=== PATIENT | male | born 1945 | race African-American/Black ===

== ENCOUNTER 2016-08-30 14:02 | Inpatient (IN) | payer MEDICAID, MEDICARE ==
[~2016-08-30] VITALS: Ht 182.9 cm; Wt 90.7 kg
[2016-08-30] MEDS ORDERED: metroNIDAZOLE 500mg 100 ML IV SCH (14:15)
[2016-08-30] MEDS ORDERED: Ampicillin/Sulbactam Sod 3 GM in NS 110 ML IV SCH (14:15)
[2016-08-30 14:18] VITALS: BP 167/89
[2016-08-30] MEDS ORDERED: Lidocaine 1% MPF 10mg/ml 5ml ONE (14:20)
[2016-08-30] MEDS ORDERED: COLACE100 MG GT (14:48)
[2016-08-30] MEDS ORDERED: UTI-STAT L3875 MG/31 GT (14:48)
[2016-08-30] MEDS ORDERED: FERROUS SU220 MG/53 GT (14:48)
[2016-08-30] MEDS ORDERED: MULTI-DELYN237 ML GT (14:48)
[2016-08-30] MEDS ORDERED: ALBUTEROL SULF8.5 GM INH (14:48)
[2016-08-30] MEDS ORDERED: DIOVAN80 MG GT (14:48)
[2016-08-30] MEDS ORDERED: MILK OF MA400 MG/51 GT (14:48)
[2016-08-30] MEDS ORDERED: PROTONIX40 MG GT (14:48)
[2016-08-30] MEDS ORDERED: METOPROLOL TART50 M1 GT (14:48)
[2016-08-30] MEDS ORDERED: ZINC SULFATE220 M1 GT (14:48)
[2016-08-30] MEDS ORDERED: VITAMIN C500 M1 ORAL (14:48)
[2016-08-30] MEDS ORDERED: ALBUTEROL2.5 MG/3 M INH (14:48)
[2016-08-30 14:50] LABS: TROPONIN I < 0.30 ng/mL (<=0.30)
[2016-08-30 14:54] LABS: MEAN CORPUSCULAR HGB CONC 32.5 G/DL (32.0-36.0); MEAN CORPUSCULAR VOLUME 95 FL (80-99); MEAN PLATELET VOLUME 9.6 FL (6.5-10.1); PLATELET COUNT 40 K/UL (150-450); RED BLOOD COUNT 3.56 M/UL (4.70-6.10); RED CELL DISTRIBUTION WIDTH 17.5 % (11.6-14.8); WHITE BLOOD COUNT 10.2 K/UL (4.8-10.8)
--- NOTE | 2016-08-30 14:54 | Emergency Room Report ---
History of Present Illness General Chief Complaint: Altered Level of Consciousness Source: Medical Record, EMS Present Illness HPI Patient is a 71-year-old male brought in by embolus after increased altered level consciousness. The patient had prior history of esophageal carcinoma in situ as well as encephalopathy. Patient was noted to have a recent ammonia level which was markedly elevated. Patient had been noticed to have a wound to right foot which been discolored. The patient noted be having any fever. He had adequate blood sugar by EMS. History is limited by patient's nonverbal status. Allergies: Coded Allergies: No Known Allergies (Unverified , 08/30/16) Patient History Past Medical History: see triage record Reviewed Nursing Documentation: PMH: Agreed, PSxH: Agreed Nursing Documentation-PMH Past Medical History: No History, Except For Hx Cardiac Problems: Yes - mi, anemia Hx Hypertension: Yes Hx COPD: Yes - tracheostomy-nonvent dependant Hx Cancer: Yes - esophageal Review of Systems All Other Systems: limited - by mental status Physical Exam Vital Signs Date Time Temp Pulse Resp B/P Pulse Ox O2 Delivery O2 Flow Rate FiO2 08/30/16 13:59 76 20 165/95 100 Ambu-Bag 100 General Appearance: mild distress Eyes: bilateral eye PERRL ENT: other - tracheostomy noted to not be in stoma, patient breathing spontaneously Neck: limited range of motion Respiratory: lungs clear, normal breath sounds, no rhonchi Cardiovascular #1: normal peripheral pulses, regular rate, rhythm, no edema Gastrointestinal: normal inspection, normal bowel sounds, soft Genitourinary: normal inspection Musculoskeletal: swelling, other - discoloration to right foot Neurologic: responsive, motor weakness - right side, other - poor alertness, pupils reactive. Skin: other - ulcer to right foot, discoloration Procedures Central Line Central Line : Consent: Emergent Central Line Lumen: triple Maximal Sterile Barrier Tech: yes cap, yes mask, yes sterile gown, yes sterile gloves, yes large sterile sheet, yes hand hygiene, yes chlorhexidine prep No Max Barrier Tech Because: emergency insertion Central Line Postion: subclavian (R) Anesthesia: Lidocaine cc's of anesthesia: 5 Complications: none Central Line Post Position: sutured, good blood return, position confirmed w / CXR Attempts: Other - two Patient Tolerated: Well Complications: None Medical Decision Making Diagnostic Impression: Primary Impression: Altered level of consciousness Additional Impressions: Severe sepsis Acute kidney injury Urinary tract infection QT prolongation ER Course Patient presented for altered mental status.Differential diagnosis included but was not limited to ischemic stroke, subarachnoid hemorrhage, hypoglycemia, spinal cord injury, neurodegenerative disorder, urinary tract infection, hypoxemia.Because of complexity of patient's case laboratory testing and imaging studies were ordered.Laboratory testing was notable for elevated of BUN creatinine as well as elevated lactic acid level. A right subclavian central line was placed emergently because of no IV access. The patient started on IV fluids. A Whitten catheter was placed and was noted to have grossly purulent urine. The patient was also noted to have some discoloration to his right foot.Dr. Valerio was contacted for inpatient management due to complexity of medical condition was covering for Hipolito Romero. Patient was noted to have evidence of severe sepsis. He was started on IV antibioticAnd IV fluids.Tracheostomy was replaced and patient started on mechanical ventilation. The CT the head read by radiology showed atrophic changes without evident acute CVA or hydrocephalus or hemorrhage Labs Test 08/30/16 14:11 08/30/16 14:40 Sodium Level 132 mEQ/L (135-145) Potassium Level 5.4 mEQ/L (3.4-4.9) Chloride Level 96 mEQ/L (98-107) Carbon Dioxide Level 17 mEQ/L (20-30) Anion Gap 19 (5-15) Blood Urea Nitrogen 88 mg/dL (7-23) Creatinine 5.6 mg/dL (0.7-1.2) Estimat Glomerular Filtration Rate mL/min (>60) Glucose Level 119 mg/dL (74-106) Lactic Acid Level 3.20 mmol/L (0.66-2.22) Calcium Level 7.6 mg/dL (8.6-10.2) Total Bilirubin 1.1 mg/dL (0.0-1.2) Direct Bilirubin 0.5 mg/dL (0.1-0.3) Aspartate Amino Transf (AST/SGOT) 103 U/L (5-40) Alanine Aminotransferase (ALT/SGPT) 38 U/L (3-41) Alkaline Phosphatase 156 U/L (40-129) Ammonia 167 umol/L (16-60) Total Creatine Kinase 102 U/L (38-174) Creatine Kinase MB 4.1 ng/mL (< 6.7) Creatine Kinase MB Relative Index 4.0 Troponin I < 0.30 ng/mL (<=0.30) Total Protein 8.6 g/dL (6.6-8.7) Albumin 1.5 g/dL (3.5-5.2) Globulin 7.1 g/dL Albumin/Globulin Ratio 0.2 (1.0-2.7) White Blood Count 10.2 K/UL (4.8-10.8) Red Blood Count 3.56 M/UL (4.70-6.10) Hemoglobin 11.0 G/DL (14.2-18.0) Hematocrit 33.9 % (42.0-52.0) Mean Corpuscular Volume 95 FL (80-99) Mean Corpuscular Hemoglobin 31.0 PG (27.0-31.0) Mean Corpuscular Hemoglobin Concent 32.5 G/DL (32.0-36.0) Red Cell Distribution Width 17.5 % (11.6-14.8) Platelet Count 40 K/UL (150-450) Mean Platelet Volume 9.6 FL (6.5-10.1) Neutrophils (%) (Auto) % (45.0-75.0) Lymphocytes (%) (Auto) % (20.0-45.0) Monocytes (%) (Auto) % (1.0-10.0) Eosinophils (%) (Auto) % (0.0-3.0) Basophils (%) (Auto) % (0.0-2.0) Differential Total Cells Counted 100 Neutrophils % (Manual) 71 % (45-75) Lymphocytes % (Manual) 10 % (20-45) Monocytes % (Manual) 15 % (1-10) Eosinophils % (Manual) 0 % (0-3) Basophils % (Manual) 0 % (0-2) Band Neutrophils 4 % (0-8) Platelet Estimate Decreased Platelet Morphology Normal Hypochromasia 1+ Anisocytosis 1+ EKG Diagnostic Results Rate: normal - 67 Rhythm: NSR, other - qt prolongation ST Segments: no acute changes Rhythm Strip Diag. Results EP Interpretation: yes Rhythm: NSR, no PVC's, no ectopy Chest X-Ray Diagnostic Results EP Interpretation: Yes Findings: no consolidation, no effusion, no pneumothorax, no acute cardiopulmonary disease Number of Views: 1 Last Vital Signs Date Time Temp Pulse Resp B/P Pulse Ox O2 Delivery O2 Flow Rate FiO2 08/30/16 14:18 72 24 167/89 100 Room Air 08/30/16 13:59 100 Status: unchanged Disposition: ADMITTED INPATIENT Condition: Critical Referrals: HIPOLITO ROMERO (PCP) Josh Vance Aug 30, 2016 14:53
[2016-08-30 15:03] LABS: ALANINE AMINOTRANSFERASE 38 U/L (3-41); ALBUMIN/GLOBULIN RATIO 0.2 (1.0-2.7); ANION GAP 19 (5-15); ASPARTATE AMINO TRANSFERASE 103 U/L (5-40); CALCIUM 7.6 mg/dL (8.6-10.2); CARBON DIOXIDE 17 mEQ/L (20-30); CHLORIDE 96 mEQ/L (98-107); CREATININE 5.6 mg/dL (0.7-1.2); HEMOLYSIS 75; POTASSIUM 5.4 mEQ/L (3.4-4.9); SODIUM 132 mEQ/L (135-145); TOTAL PROTEIN 8.6 g/dL (6.6-8.7)
[2016-08-30 15:07] LABS: REFLEX LACTIC ACID YES OR NO YES
[2016-08-30 15:12] LABS: ANISOCYTOSIS 1+; BAND NEUTROPHILS % (MANUAL) 4 % (0-8); BASOPHILS % (MANUAL) 0 % (0-2); EOSINOPHILS % (MANUAL) 0 % (0-3); HYPOCHROMASIA 1+; LYMPHOCYTES % (MANUAL) 10 % (20-45); NEUTROPHILS % (MANUAL) 71 % (45-75); PLATELET ESTIMATE DECREASED; PLATELET MORPHOLOGY NORMAL; TOTAL CELLS COUNTED 100
[2016-08-30 15:13] LABS: CKMB 4.1 ng/mL (< 6.7)
--- NOTE | 2016-08-30 15:16 | Diagnostic Imaging Report ---
Indication: SOB Technique: One view of the chest Comparison: none Findings: Lungs and pleural spaces are clear. Heart size is normal . There is a tracheostomy. There is right subclavian central venous catheter. No pneumothorax. Is minimal atelectasis at the left lung base Impression: No acute process Minimal left basilar atelectasis Tubes and lines, as described
[2016-08-30 15:18] LABS: AMMONIA 167 umol/L (16-60)
[2016-08-30 15:24] LABS: BILIRUBIN,DIRECT 0.5 mg/dL (0.1-0.3)
[2016-08-30 15:30] VITALS: BP 134/60
[2016-08-30 15:55] LABS: APPEARANCE,URINE CLOUDY
[2016-08-30 15:56] LABS: KETONES,URINE NEGATIVE (NEGATIVE); LEUKOCYTE ESTERASE ,URINE 3+ (NEGATIVE); NITRITE,URINE NEGATIVE (NEGATIVE); PROTEIN,URINE 2+ (NEGATIVE); UROBILINOGEN,URINE NORMAL MG/DL (0.0-1.0)
[2016-08-30 16:07] LABS: BACTERIA,URINE MANY /HPF; RBC,URINE 0-2 /HPF (0 - 0); WBC,URINE TNTC /HPF (0 - 0)
[2016-08-30 16:16] LABS: ABG BASE EXCESS -3.3; ABG PCO2 24.5 mmHg (35.0-45.0)
[2016-08-30 16:17] LABS: ABG ALLEN TEST POSITIVE
[2016-08-30] MEDS ORDERED: Unasyn 3gm Inj ONE (16:17)
[2016-08-30 16:24] VITALS: BP 110/53
[2016-08-30 17:15] VITALS: BP 136/72
[2016-08-30] MEDS ORDERED: Miralax 17gm pkt ORAL PRN (18:15)
[2016-08-30] MEDS ORDERED: Metoclopramide 10mg/2ml Inj IVP PRN (18:15)
[2016-08-30] MEDS ORDERED: Acetaminophen 650 MG SUPP RECTAL PRN (18:15)
[2016-08-30] MEDS ORDERED: DuoNeb 0.5-3(2.5)mg/3ml neb HHN PRN (18:15)
--- NOTE | 2016-08-30 18:31 | History and Physical ---
History of Present Illness General Date patient seen: Aug 30, 2016 Time patient seen: 17:00 Reason for Hospitalization: Altered Level of Consciousness Present Illness HPI 71-year-old male brought due to altered level consciousness from SNF where he resides The patient had prior history of esophageal carcinoma in situ as well as encephalopathy. Patient with history of chronic respiratory failure with tracheostomy but was not on vent Patient was noted to have a recent ammonia level markedly elevated. ED workup revealed acute renal failure BUN/creat -88/5.6, elevated ammonia - 167 K-5.4 elevated lactic acid -, with no leukocytosis, no fever patient was given 1 L of fluids started on abx after being pancultured, placed on vent and transferred to [facility] Allergies: Coded Allergies: No Known Allergies (Unverified , 08/30/16) Medication History Scheduled Albuterol Sulfate* (Albuterol Sulfate Mdi*), 2 PUFF INH Q6H, (Reported) Ascorbic Acid* (Vitamin C*), 500 MG ORAL DAILY, (Reported) Cran/Vitc/Mannose/Inulin/Brom (Uti-Stat Liquid), 3,875 MG GT BID, (Reported) Docusate Sodium* (Colace*), 100 MG GT TWICE A DAY, (Reported) Ferrous Sulfate (Ferrous Sulfate), 330 MG GT DAILY, (Reported) Magnesium Hydroxide* (Milk Of Magnesia*), 30 ML GT DAILY, (Reported) Metoprolol Tartrate* (Metoprolol Tartrate*), 50 MG GT EVERY 12 HOURS, (Reported) Multivitamin Liquid* (Multi-Delyn*), 5 ML GT DAILY, (Reported) Pantoprazole* (Protonix*), 40 MG GT EVERY 12 HOURS, (Reported) Valsartan (Diovan), 80 MG GT DAILY, (Reported) Zinc Sulfate (Zinc Sulfate*), 220 MG GT DAILY, (Reported) Scheduled PRN Albuterol Sulfate* (Albuterol Sulfate Hhn*), 3 ML INH Q4H PRN for Shortness of Breath, (Reported) Patient History Healthcare decision maker Resuscitation status Advanced Directive on File Review of Systems ROS Narrative unable to obtain 2 to patient LOC Physical Exam General Appearance: other - not responsive, on vent Lines, tubes and drains: peripheral, trach, gtube HEENT: atraumatic, anicteric Respiratory/Chest: lungs clear, no respiratory distress Cardiovascular/Chest: normal rate, regular rhythm Abdomen: normal bowel sounds, non tender, soft, feeding tube - G tube Skin Exam: other - R lower leg wound Neurologic: abnormal gait, other - not responsive , lethargic, spastic LE Last 24 Hour Vital Signs Date Time Temp Pulse Resp B/P Pulse Ox O2 Delivery O2 Flow Rate FiO2 08/30/16 17:15 97.2 69 22 136/72 100 Mechanical Ventilator 32 08/30/16 17:13 73 20 32 08/30/16 17:09 97.6 63 18 110/53 100 Trach Collar 32 08/30/16 16:24 60 19 110/53 100 Trach Collar 32 08/30/16 15:30 97.6 68 23 134/60 100 Trach Collar 32 08/30/16 15:30 32 08/30/16 14:59 32 08/30/16 14:30 70 20 Mechanical Ventilator 15.0 32 08/30/16 14:30 71 20 32 08/30/16 14:18 72 24 167/89 100 Room Air 08/30/16 13:59 76 20 165/95 100 Ambu-Bag 100 Laboratory Tests Test 08/30/16 14:11 08/30/16 14:40 08/30/16 15:32 08/30/16 15:51 Sodium Level 132 mEQ/L (135-145) L Potassium Level 5.4 mEQ/L (3.4-4.9) H Chloride Level 96 mEQ/L (98-107) L Carbon Dioxide Level 17 mEQ/L (20-30) L Anion Gap 19 (5-15) H Blood Urea Nitrogen 88 mg/dL (7-23) H Creatinine 5.6 mg/dL (0.7-1.2) H Estimat Glomerular Filtration Rate mL/min (>60) Glucose Level 119 mg/dL (74-106) H Lactic Acid Level 3.20 mmol/L (0.66-2.22) H 2.10 mmol/L (0.66-2.22) Calcium Level 7.6 mg/dL (8.6-10.2) L Total Bilirubin 1.1 mg/dL (0.0-1.2) Direct Bilirubin 0.5 mg/dL (0.1-0.3) H Aspartate Amino Transf (AST/SGOT) 103 U/L (5-40) H Alanine Aminotransferase (ALT/SGPT) 38 U/L (3-41) Alkaline Phosphatase 156 U/L (40-129) H Ammonia 167 umol/L (16-60) H Total Creatine Kinase 102 U/L (38-174) Creatine Kinase MB 4.1 ng/mL (< 6.7) Creatine Kinase MB Relative Index 4.0 Troponin I < 0.30 ng/mL (<=0.30) Total Protein 8.6 g/dL (6.6-8.7) Albumin 1.5 g/dL (3.5-5.2) L Globulin 7.1 g/dL Albumin/Globulin Ratio 0.2 (1.0-2.7) L White Blood Count 10.2 K/UL (4.8-10.8) Red Blood Count 3.56 M/UL (4.70-6.10) L Hemoglobin 11.0 G/DL (14.2-18.0) L Hematocrit 33.9 % (42.0-52.0) L Mean Corpuscular Volume 95 FL (80-99) Mean Corpuscular Hemoglobin 31.0 PG (27.0-31.0) Mean Corpuscular Hemoglobin Concent 32.5 G/DL (32.0-36.0) Red Cell Distribution Width 17.5 % (11.6-14.8) H Platelet Count 40 K/UL (150-450) L Mean Platelet Volume 9.6 FL (6.5-10.1) Neutrophils (%) (Auto) % (45.0-75.0) Lymphocytes (%) (Auto) % (20.0-45.0) Monocytes (%) (Auto) % (1.0-10.0) Eosinophils (%) (Auto) % (0.0-3.0) Basophils (%) (Auto) % (0.0-2.0) Differential Total Cells Counted 100 Neutrophils % (Manual) 71 % (45-75) Lymphocytes % (Manual) 10 % (20-45) L Monocytes % (Manual) 15 % (1-10) H Eosinophils % (Manual) 0 % (0-3) Basophils % (Manual) 0 % (0-2) Band Neutrophils 4 % (0-8) Platelet Estimate Decreased L Platelet Morphology Normal Hypochromasia 1+ Anisocytosis 1+ Urine Color Yellow Urine Appearance Cloudy Urine pH 6.0 (4.5-8.0) Urine Specific [place] 1.010 (1.005-1.035) Urine Protein 2+ (NEGATIVE) H Urine Glucose (UA) Negative (NEGATIVE) Urine Ketones Negative (NEGATIVE) Urine Occult Blood 4+ (NEGATIVE) H Urine Nitrite Negative (NEGATIVE) Urine Bilirubin Negative (NEGATIVE) Urine Urobilinogen Normal MG/DL (0.0-1.0) Urine Leukocyte Esterase 3+ (NEGATIVE) H Urine RBC 0-2 /HPF (0 - 0) H Urine WBC Tntc /HPF (0 - 0) H Urine Squamous Epithelial Cells None /LPF (NONE/OCC) Urine Bacteria Many /HPF (NONE) H Test 08/30/16 15:55 Arterial Blood pH 7.497 (7.350-7.450) Arterial Blood Partial Pressure CO2 24.5 mmHg (35.0-45.0) *L Arterial Blood Partial Pressure O2 140.5 mmHg (75.0-100.0) H Arterial Blood HCO3 18.5 mmol/L (22.0-26.0) L Arterial Blood Oxygen Saturation 98.4 % (92.0-98.0) H Arterial Blood Base Excess -3.3 Hemanth Test Positive Height (Feet): 6 Weight (Pounds): 200 Medications Current Medications Medications (Trade) Dose Ordered Sig/Darren Route PRN Reason Start Time Stop Time Status Last Admin Dose Admin Ampicillin Sodium/ Sulbactam Sodium/ Sodium Chloride (Unasyn/Sodium Chloride) 110 ml @ 220 mls/hr Q6H IV 08/30/16 14:15 08/31/16 14:14 08/30/16 16:16 Metronidazole 100 ml @ 100 mls/hr Q8H IV 08/30/16 14:15 08/31/16 14:14 08/30/16 14:52 Vitamin A/Vitamin D (A & D Oint) 1 applic EVERY 12 HOURS TOPIC 08/30/16 21:00 09/29/16 20:59 Assessment/Plan Assessment/Plan ASSESSMENT acute encephalopathy likely sepsis UTI acute on chronic respiratory failure tracheostomy status COPD esophageal CA hepatic encephalopathy thrombocytopenia acute renal failure UTI elevated LFT R foot wound dysphagia, G tube PLAN OF CARE [facility] status vent trach care pulmonary toilet ABG in am and try to wean in am to trach collar only abx, ID consult fup with cultures strict aspiration precautions, GT feeding, will start in am , monitor tolerance start lactulose, monitor ammonia IVF , monitor renal parameters and lytes, avoid nephrotoxic renal US nephro consult monitor PLT, no Heparin abdominal US hepatitis panel wound care wound nurse eval GI prophylaxis Venous Duplex BLE if negative, place SCD pain management case discussed and evaluated by supervising physician Parish Vasquez),Dominga GÓMEZ Aug 30, 2016 18:31
--- NOTE | 2016-08-30 19:21 | Consultation ---
Consult Note Assessment/Plan ID # [id number] A: Probable Sepsis LACosis Probable VAP Probable UTI ALOC Abn LFT SADIA vs CKD VDRF Sp PEG and Trach Eosph Ca HTN Anemia low Plt COPD P: cont IV Vanco and Cefepime Monitor CBC Monitor BMP Monitor Cxray Monitor Cx ( Bl,Ur ,SP) Hepatitis panel Abran CT :EDUARD CANALES M.D. Aug 30, 2016 19:21
[2016-08-30 20:00] VITALS: BP 132/66
[2016-08-30] MEDS: Cefepime HCl 1 GM in D5W 55 ML IVPB SCH (20:04)
[2016-08-30] MEDS: Lactulose 20gm/30ml UDC ORAL SCH (20:24)
[2016-08-30] MEDS ORDERED: Vancomycin 1.5 GM in D5W 325 ML IVPB ONE (21:00)
[2016-08-30] MEDS: Vitamin A&D Oint 2oz Tube TOPIC SCH (21:23)
[2016-08-31] VITALS: BP 145/71
[2016-08-31 04:00] VITALS: BP 149/73
[2016-08-31 05:01] LABS: MEAN CORPUSCULAR HEMOGLOBIN 31.6 PG (27.0-31.0); MEAN CORPUSCULAR VOLUME 96 FL (80-99); MEAN PLATELET VOLUME 8.9 FL (6.5-10.1); PLATELET COUNT 41 K/UL (150-450); RED BLOOD COUNT 3.37 M/UL (4.70-6.10); RED CELL DISTRIBUTION WIDTH 17.3 % (11.6-14.8); WHITE BLOOD COUNT 9.2 K/UL (4.8-10.8)
[2016-08-31 05:15] LABS: ALANINE AMINOTRANSFERASE 33 U/L (3-41); ALBUMIN/GLOBULIN RATIO 0.1 (1.0-2.7); ANION GAP 13 (5-15); ASPARTATE AMINO TRANSFERASE 86 U/L (5-40); CALCIUM 7.4 mg/dL (8.6-10.2); CARBON DIOXIDE 20 mEQ/L (20-30); CHLORIDE 107 mEQ/L (98-107); CREATININE 4.6 mg/dL (0.7-1.2); HEMOLYSIS 0; POTASSIUM 4.3 mEQ/L (3.4-4.9); SODIUM 140 mEQ/L (135-145); TOTAL PROTEIN 7.4 g/dL (6.6-8.7)
[2016-08-31 08:00] VITALS: BP 147/79
--- NOTE | 2016-08-31 08:00 | Infectious Diseases Prog Note ---
Assessment/Plan Assessment/Plan ASSESSMENT: 71 y/o male with: GNR bacteremia 10/29 ?urinary vs biliary source - C&S pending Probable UTI - UCx pending Severe sepsis - resolved lactic acidosis Afebrile without leukocytosis Acute encephalopathy, m/l septic, hepatic CT Head: pending elevated NH4 Elevated LFTs - improved pending: US, hepatitis panel ARF - improved Chronic VDRF SP trach, PEG Thrombocytopenia h/o esophageal CA [facility] resident NKDA Full Code PLAN: continue empiric IV Vanco and Cefepime d# 2 f/u cultures, adjust ABX accordingly f/u CT head, abdo US Monitor CBC, temperatures Monitor CMP Monitor CXR Hepatitis panel :P vent support, trach care, aspiration precautions Subjective Allergies: Coded Allergies: No Known Allergies (Unverified , 08/30/16) Subjective remains afebrile on vent BCx GNR Objective Vital Signs Last 24 Hour Vital Signs Date Time Temp Pulse Resp B/P Pulse Ox O2 Delivery O2 Flow Rate FiO2 08/31/16 06:20 71 24 34 08/31/16 05:18 68 23 34 08/31/16 04:00 97.9 70 22 149/73 100 Mechanical Ventilator 34 08/31/16 04:00 34 08/31/16 03:39 72 08/31/16 03:15 70 25 34 08/31/16 01:18 70 21 34 08/31/16 00:00 97.9 60 22 145/71 100 Mechanical Ventilator 34 08/31/16 00:00 34 08/30/16 23:50 67 08/30/16 23:15 68 24 34 08/30/16 21:00 62 19 32 08/30/16 20:00 32 08/30/16 20:00 61 08/30/16 20:00 97.7 61 19 132/66 100 Mechanical Ventilator 32 08/30/16 19:25 70 18 Mechanical Ventilator 15.0 32 08/30/16 19:25 70 18 32 08/30/16 17:15 97.2 69 22 136/72 100 Mechanical Ventilator 32 08/30/16 17:13 73 20 32 08/30/16 17:09 97.6 63 18 110/53 100 Trach Collar 32 08/30/16 16:24 60 19 110/53 100 Trach Collar 32 08/30/16 15:30 97.6 68 23 134/60 100 Trach Collar 32 08/30/16 15:30 32 08/30/16 14:59 32 08/30/16 14:30 70 20 Mechanical Ventilator 15.0 32 08/30/16 14:30 71 20 32 08/30/16 14:18 72 24 167/89 100 Room Air 08/30/16 13:59 76 20 165/95 100 Ambu-Bag 100 Height (Feet): 6 Height (Inches): 0.00 Weight (Pounds): 200 General Appearance: no acute distress HEENT: status post trach Respiratory/Chest: decreased breath sounds Cardiovascular: normal rate, regular rhythm Abdomen: normal bowel sounds, soft, non tender, non distended Microbiology Date/Time Source Procedure Growth Status 08/30/16 14:15 Blood Blood Culture - Preliminary Gram Negative Jarod Resulted 08/30/16 14:00 Blood Blood Culture - Preliminary Gram Negative Jarod Resulted Laboratory Tests Test 08/30/16 14:11 08/30/16 14:40 08/30/16 15:32 08/30/16 15:51 Sodium Level 132 mEQ/L (135-145) L Potassium Level 5.4 mEQ/L (3.4-4.9) H Chloride Level 96 mEQ/L (98-107) L Carbon Dioxide Level 17 mEQ/L (20-30) L Anion Gap 19 (5-15) H Blood Urea Nitrogen 88 mg/dL (7-23) H Creatinine 5.6 mg/dL (0.7-1.2) H Estimat Glomerular Filtration Rate mL/min (>60) Glucose Level 119 mg/dL (74-106) H Lactic Acid Level 3.20 mmol/L (0.66-2.22) H 2.10 mmol/L (0.66-2.22) Calcium Level 7.6 mg/dL (8.6-10.2) L Total Bilirubin 1.1 mg/dL (0.0-1.2) Direct Bilirubin 0.5 mg/dL (0.1-0.3) H Aspartate Amino Transf (AST/SGOT) 103 U/L (5-40) H Alanine Aminotransferase (ALT/SGPT) 38 U/L (3-41) Alkaline Phosphatase 156 U/L (40-129) H Ammonia 167 umol/L (16-60) H Total Creatine Kinase 102 U/L (38-174) Creatine Kinase MB 4.1 ng/mL (< 6.7) Creatine Kinase MB Relative Index 4.0 Troponin I < 0.30 ng/mL (<=0.30) Total Protein 8.6 g/dL (6.6-8.7) Albumin 1.5 g/dL (3.5-5.2) L Globulin 7.1 g/dL Albumin/Globulin Ratio 0.2 (1.0-2.7) L White Blood Count 10.2 K/UL (4.8-10.8) Red Blood Count 3.56 M/UL (4.70-6.10) L Hemoglobin 11.0 G/DL (14.2-18.0) L Hematocrit 33.9 % (42.0-52.0) L Mean Corpuscular Volume 95 FL (80-99) Mean Corpuscular Hemoglobin 31.0 PG (27.0-31.0) Mean Corpuscular Hemoglobin Concent 32.5 G/DL (32.0-36.0) Red Cell Distribution Width 17.5 % (11.6-14.8) H Platelet Count 40 K/UL (150-450) L Mean Platelet Volume 9.6 FL (6.5-10.1) Neutrophils (%) (Auto) % (45.0-75.0) Lymphocytes (%) (Auto) % (20.0-45.0) Monocytes (%) (Auto) % (1.0-10.0) Eosinophils (%) (Auto) % (0.0-3.0) Basophils (%) (Auto) % (0.0-2.0) Differential Total Cells Counted 100 Neutrophils % (Manual) 71 % (45-75) Lymphocytes % (Manual) 10 % (20-45) L Monocytes % (Manual) 15 % (1-10) H Eosinophils % (Manual) 0 % (0-3) Basophils % (Manual) 0 % (0-2) Band Neutrophils 4 % (0-8) Platelet Estimate Decreased L Platelet Morphology Normal Hypochromasia 1+ Anisocytosis 1+ Urine Color Yellow Urine Appearance Cloudy Urine pH 6.0 (4.5-8.0) Urine Specific [place] 1.010 (1.005-1.035) Urine Protein 2+ (NEGATIVE) H Urine Glucose (UA) Negative (NEGATIVE) Urine Ketones Negative (NEGATIVE) Urine Occult Blood 4+ (NEGATIVE) H Urine Nitrite Negative (NEGATIVE) Urine Bilirubin Negative (NEGATIVE) Urine Urobilinogen Normal MG/DL (0.0-1.0) Urine Leukocyte Esterase 3+ (NEGATIVE) H Urine RBC 0-2 /HPF (0 - 0) H Urine WBC Tntc /HPF (0 - 0) H Urine Squamous Epithelial Cells None /LPF (NONE/OCC) Urine Bacteria Many /HPF (NONE) H Test 08/30/16 15:55 08/31/16 03:40 Arterial Blood pH 7.497 (7.350-7.450) Arterial Blood Partial Pressure CO2 24.5 mmHg (35.0-45.0) *L Arterial Blood Partial Pressure O2 140.5 mmHg (75.0-100.0) H Arterial Blood HCO3 18.5 mmol/L (22.0-26.0) L Arterial Blood Oxygen Saturation 98.4 % (92.0-98.0) H Arterial Blood Base Excess -3.3 Hemanth Test Positive White Blood Count 9.2 K/UL (4.8-10.8) Red Blood Count 3.37 M/UL (4.70-6.10) L Hemoglobin 10.7 G/DL (14.2-18.0) L Hematocrit 32.2 % (42.0-52.0) L Mean Corpuscular Volume 96 FL (80-99) Mean Corpuscular Hemoglobin 31.6 PG (27.0-31.0) H Mean Corpuscular Hemoglobin Concent 33.0 G/DL (32.0-36.0) Red Cell Distribution Width 17.3 % (11.6-14.8) H Platelet Count 41 K/UL (150-450) L Mean Platelet Volume 8.9 FL (6.5-10.1) Neutrophils (%) (Auto) % (45.0-75.0) Lymphocytes (%) (Auto) % (20.0-45.0) Monocytes (%) (Auto) % (1.0-10.0) Eosinophils (%) (Auto) % (0.0-3.0) Basophils (%) (Auto) % (0.0-2.0) Sodium Level 140 mEQ/L (135-145) Potassium Level 4.3 mEQ/L (3.4-4.9) Chloride Level 107 mEQ/L (98-107) Carbon Dioxide Level 20 mEQ/L (20-30) Anion Gap 13 (5-15) Blood Urea Nitrogen 80 mg/dL (7-23) H Creatinine 4.6 mg/dL (0.7-1.2) H Estimat Glomerular Filtration Rate mL/min (>60) Glucose Level 93 mg/dL (74-106) Calcium Level 7.4 mg/dL (8.6-10.2) L Total Bilirubin 0.9 mg/dL (0.0-1.2) Aspartate Amino Transf (AST/SGOT) 86 U/L (5-40) H Alanine Aminotransferase (ALT/SGPT) 33 U/L (3-41) Alkaline Phosphatase 174 U/L (40-129) H Total Protein 7.4 g/dL (6.6-8.7) Albumin 1.2 g/dL (3.5-5.2) L Globulin 6.2 g/dL Albumin/Globulin Ratio 0.1 (1.0-2.7) L Hepatitis A IgM Antibody Pending Hepatitis B Surface Antigen Pending Hepatitis B Core IgM Antibody Pending Hepatitis C Antibody Pending Current Medications Medications (Trade) Dose Ordered Sig/Darren Route PRN Reason Start Time Stop Time Status Last Admin Dose Admin Acetaminophen (Tylenol) 650 mg Q4H PRN RECTAL T>100.5 08/30/16 18:15 09/29/16 18:14 Albuterol/ Ipratropium (DuoNeb 0.5-3(2.5)mg/3ml) 3 ml Q4H PRN HHN Shortness of Breath 08/30/16 18:15 09/04/16 18:14 Cefepime HCl/ Dextrose (Maxipime/D5W) 55 ml @ 110 mls/hr Q24H IVPB 08/30/16 20:00 09/06/16 19:59 08/30/16 20:04 Dextrose (Dextrose 50%) STAT PRN IV Hypoglycemia 08/30/16 18:15 09/29/16 18:14 Lactulose (Cephulac) 30 gm FOUR TIMES A DAY ORAL 08/30/16 21:00 09/29/16 20:59 08/30/16 20:24 Metoclopramide HCl (Reglan) 10 mg Q6H PRN IVP Nausea & Vomiting 2/3/17 18:15 09/29/16 18:14 Morphine Sulfate (Morphine Sulfate) 2 mg Q4H PRN IVP PAIN 4-10 08/30/16 18:15 09/06/16 18:14 Multivitamins (Multivitamin Hexavitamin) 5 ml DAILY GT 08/31/16 09:00 09/30/16 08:59 Ondansetron HCl (Zofran) 4 mg Q6H PRN IVP Nausea & Vomiting 08/30/16 18:15 09/29/16 18:14 Polyethylene Glycol (Miralax) 17 gm DAILYPRN PRN ORAL Constipation 08/30/16 18:15 09/29/16 18:14 Ranitidine HCl (Zantac) 150 mg QHS ORAL 08/30/16 21:00 09/29/16 20:59 08/30/16 20:24 Sodium Chloride (Sodium Chloride 1000ml bag) 1,000 ml @ 100 mls/hr Q10H IV 08/30/16 19:00 09/29/16 18:59 08/31/16 05:00 Vancomycin HCl 1 ea 1 ea DAILY PRN MISC Per rx protocol 08/30/16 18:15 09/29/16 18:14 Vitamin A/Vitamin D 1 applic 1 applic EVERY 12 HOURS TOPIC 08/30/16 21:00 09/29/16 20:59 08/30/16 21:23 TIAN PERERA Aug 31, 2016 08:00
[2016-08-31] MEDS: Vitamin A&D Oint 2oz Tube TOPIC SCH ×2 (09:00→22:28)
[2016-08-31] MEDS: Lactulose 20gm/30ml UDC ORAL SCH ×4 (09:28→20:59)
[2016-08-31] MEDS: Multivitamin 5ml Liquid GT SCH (09:29)
[2016-08-31 10:08] LABS: ABG ALLEN TEST POSITIVE; ABG BASE EXCESS -1.8; ABG PCO2 27.6 mmHg (35.0-45.0)
--- NOTE | 2016-08-31 11:04 | Diagnostic Imaging Report ---
Indication:Abdominal pain and elevated liver function tests Technique: Grayscale and duplex Doppler imaging of the abdomen performed. Comparison: None Findings: The liver is abnormal with micronodular in the lung the surface and heterogeneous, coarsened echotexture. The main portal vein is patent but flow direction is hepatofugal. No biliary ductal dilatation is seen. CBD is between 9 and 10 mm. Gallbladder wall is moderately thickened. Small gallbladder stone noted. Demonstrated part of the pancreas, both kidneys appear unremarkable. There is mild ascites. The spleen is enlarged measuring 17 cm. There are suspected portosystemic varices in the upper abdomen best demonstrated on color Doppler imaging. Whitten catheter is present. There is no hydronephrosis. There maybe a small stone in the upper pole the left kidney, nonobstructive. Impression: Liver disease/cirrhosis with stigmata of portal hypertension including splenomegaly, ascites, portosystemic varices, hepatofugal portal vein flow. Gallstone Suspected small nonobstructive stone left kidney
[2016-08-31 12:00] VITALS: BP 154/77
--- NOTE | 2016-08-31 14:15 | Pulmonology Progress Note ---
Assessment/Plan Assessment/Plan ASSESSMENT acute hepatic encephalopathy tracheostomy status tracheostomy status acute on chronic respiratory failure sepsis with bacteremia UTI tracheostomy status tracheostomy status esophageal CA cirrhosis portal hypertension ascites thrombocytopenia acute renal failure UTI elevated LFT R foot wound dysphagia, G tube PLAN OF CARE FREDI status off vent trach care , pulmonary toilet titrate FiO2 to keep sat above 92% abx, ID follows follows sputum cx pending, urine cx + GNR, blood cx + GNR strict aspiration precautions, GT feeding, monitor tolerance continue lactulose, monitor ammonia IVF , monitor renal parameters and lytes- with some improvement avoid nephrotoxic renal US nephro consult monitor PLT, no Heparin abdominal US reveal liver disease/cirrhosis with stigmata of portal hypertension including splenomegaly, ascites, portosystemic varices, hepatofugal portal vein flow hepatitis panel pending GI consult wound care wound nurse eval GI prophylaxis Venous Duplex BLE if negative, place SCD pain management case discussed and evaluated by supervising physician Subjective Allergies: Coded Allergies: No Known Allergies (Unverified , 08/30/16) Subjective afebrile, no leukocytosis off vent, on FiO2- 30% via T collar, no signs of respiratory distress Objective Last 24 Hour Vital Signs Date Time Temp Pulse Resp B/P Pulse Ox O2 Delivery O2 Flow Rate FiO2 08/31/16 13:05 100 Trach Collar 10.0 28 08/31/16 13:05 Trach Collar 10.0 28 08/31/16 12:42 71 08/31/16 12:00 28.0 08/31/16 12:00 97.7 72 24 154/77 100 Trach Collar 28 08/31/16 10:48 Trach Collar 28.0 08/31/16 10:40 Trach Collar 10.0 28 08/31/16 10:40 100 Trach Collar 10.0 28 08/31/16 09:10 100 08/31/16 09:10 71 20 Trach Collar 10.0 30 08/31/16 08:00 68 08/31/16 08:00 97.7 68 21 147/79 100 Mechanical Ventilator 35 08/31/16 08:00 28.0 08/31/16 06:20 71 24 34 08/31/16 05:18 68 23 34 08/31/16 04:00 97.9 70 22 149/73 100 Mechanical Ventilator 34 08/31/16 04:00 34 08/31/16 03:39 72 08/31/16 03:15 70 25 34 08/31/16 01:18 70 21 34 08/31/16 00:00 97.9 60 22 145/71 100 Mechanical Ventilator 34 08/31/16 00:00 34 08/30/16 23:50 67 08/30/16 23:15 68 24 34 08/30/16 21:00 62 19 32 08/30/16 20:00 32 08/30/16 20:00 61 08/30/16 20:00 97.7 61 19 132/66 100 Mechanical Ventilator 32 08/30/16 19:25 70 18 Mechanical Ventilator 15.0 32 08/30/16 19:25 70 18 32 08/30/16 17:15 97.2 69 22 136/72 100 Mechanical Ventilator 32 08/30/16 17:13 73 20 32 08/30/16 17:09 97.6 63 18 110/53 100 Trach Collar 32 08/30/16 16:24 60 19 110/53 100 Trach Collar 32 08/30/16 15:30 97.6 68 23 134/60 100 Trach Collar 32 08/30/16 15:30 32 08/30/16 14:59 32 08/30/16 14:30 70 20 Mechanical Ventilator 15.0 32 08/30/16 14:30 71 20 32 08/30/16 14:18 72 24 167/89 100 Room Air Intake and Output 08/30/16 08/31/16 19:00 07:00 Intake Total 1210 ml 1155 ml Output Total 1200 ml 2350 ml Balance 10 ml -1195 ml IV Total 1210 ml 1155 ml Output Urine Total 1200 ml 2350 ml Objective General Appearance: not responsive bedridden AA male in NAD Lines, tubes and drains: peripheral, trach- collar with 30% cool mist, secretions scant, white, thin HEENT: atraumatic, anicteric Respiratory/Chest: lungs clear, no respiratory distress Cardiovascular/Chest: normal rate, regular rhythm Abdomen: normal bowel sounds, non tender, soft, feeding tube - G tube Skin Exam: other - R lower leg wound Neurologic: abnormal gait, not responsive , lethargic, spastic LE Microbiology Date/Time Source Procedure Growth Status 08/30/16 14:15 Blood Blood Culture - Preliminary Gram Negative Jarod Resulted 08/30/16 14:00 Blood Blood Culture - Preliminary Gram Negative Jarod Resulted 08/31/16 04:20 Sputum Induced Gram Stain - Final Resulted 08/31/16 04:20 Sputum Induced Sputum Culture Pending Resulted 08/30/16 15:32 Urine,Clean Catch Urine Culture - Preliminary Gram Negative Jarod Resulted Laboratory Tests 08/30/16 14:11: Sodium Level 132L, Potassium Level 5.4H, Chloride Level 96L, Carbon Dioxide Level 17L, Anion Gap 19H, Blood Urea Nitrogen 88H, Creatinine 5.6H, Estimat Glomerular Filtration Rate , Glucose Level 119H, Lactic Acid Level 3.20H, Calcium Level 7.6L, Total Bilirubin 1.1, Direct Bilirubin 0.5H, Aspartate Amino Transf (AST/SGOT) 103H, Alanine Aminotransferase (ALT/SGPT) 38, Alkaline Phosphatase 156H, Ammonia 167H, Total Creatine Kinase 102, Creatine Kinase MB 4.1, Creatine Kinase MB Relative Index 4.0, Troponin I < 0.30, Total Protein 8.6 , Albumin 1.5L, Globulin 7.1, Albumin/Globulin Ratio 0.2L 08/30/16 14:40: White Blood Count 10.2, Red Blood Count 3.56L, Hemoglobin 11.0L, Hematocrit 33.9L, Mean Corpuscular Volume 95, Mean Corpuscular Hemoglobin 31.0, Mean Corpuscular Hemoglobin Concent 32.5, Red Cell Distribution Width 17.5H, Platelet Count 40L, Mean Platelet Volume 9.6, Neutrophils (%) (Auto) , Lymphocytes (%) (Auto) , Monocytes (%) (Auto) , Eosinophils (%) (Auto) , Basophils (%) (Auto) , Differential Total Cells Counted 100, Neutrophils % ( Manual) 71, Lymphocytes % (Manual) 10L, Monocytes % (Manual) 15H, Eosinophils % (Manual) 0, Basophils % (Manual) 0, Band Neutrophils 4, Platelet Estimate DecreasedL, Platelet Morphology Normal, Hypochromasia 1+, Anisocytosis 1+ 08/30/16 15:32: Urine Color Yellow, Urine Appearance Cloudy, Urine pH 6.0, Urine Specific Royal 1.010, Urine Protein 2+H, Urine Glucose (UA) Negative, Urine Ketones Negative, Urine Occult Blood 4+H, Urine Nitrite Negative, Urine Bilirubin Negative, Urine Urobilinogen Normal, Urine Leukocyte Esterase 3+H, Urine RBC 0- 2H, Urine WBC TntcH, Urine Squamous Epithelial Cells None, Urine Bacteria ManyH 08/30/16 15:51: Lactic Acid Level 2.10 08/30/16 15:55: Arterial Blood pH 7.497H, Arterial Blood Partial Pressure CO2 24.5*L, Arterial Blood Partial Pressure O2 140.5H, Arterial Blood HCO3 18.5L, Arterial Blood Oxygen Saturation 98.4H, Arterial Blood Base Excess -3.3, Hemanth Test Positive 08/31/16 03:40: White Blood Count 9.2, Red Blood Count 3.37L, Hemoglobin 10.7L, Hematocrit 32.2L , Mean Corpuscular Volume 96, Mean Corpuscular Hemoglobin 31.6H, Mean Corpuscular Hemoglobin Concent 33.0, Red Cell Distribution Width 17.3H, Platelet Count 41L, Mean Platelet Volume 8.9, Neutrophils (%) (Auto) , Lymphocytes (%) (Auto) , Monocytes (%) (Auto) , Eosinophils (%) (Auto) , Basophils (%) (Auto) , Sodium Level 140, Potassium Level 4.3, Chloride Level 107 , Carbon Dioxide Level 20, Anion Gap 13, Blood Urea Nitrogen 80H, Creatinine 4.6H, Estimat Glomerular Filtration Rate , Glucose Level 93, Calcium Level 7.4L , Total Bilirubin 0.9, Aspartate Amino Transf (AST/SGOT) 86H, Alanine Aminotransferase (ALT/SGPT) 33, Alkaline Phosphatase 174H, Total Protein 7.4, Albumin 1.2L, Globulin 6.2, Albumin/Globulin Ratio 0.1L, Hepatitis A IgM Antibody [Pending], Hepatitis B Surface Antigen [Pending], Hepatitis B Core IgM Antibody [Pending], Hepatitis C Antibody [Pending] 08/31/16 04:00: Arterial Blood pH 7.489H, Arterial Blood Partial Pressure CO2 27.6L, Arterial Blood Partial Pressure O2 111.3H, Arterial Blood HCO3 20.5L, Arterial Blood Oxygen Saturation 97.9, Arterial Blood Base Excess -1.8, Hemanth Test Positive Current Medications Medications (Trade) Dose Ordered Sig/Darren Route PRN Reason Start Time Stop Time Status Last Admin Dose Admin Acetaminophen (Tylenol) 650 mg Q4H PRN RECTAL T>100.5 08/30/16 18:15 09/29/16 18:14 Albuterol/ Ipratropium (DuoNeb 0.5-3(2.5)mg/3ml) 3 ml Q4H PRN HHN Shortness of Breath 08/30/16 18:15 09/04/16 18:14 Cefepime HCl/ Dextrose (Maxipime/D5W) 55 ml @ 110 mls/hr Q24H IVPB 08/30/16 20:00 09/06/16 19:59 08/30/16 20:04 Dextrose (Dextrose 50%) STAT PRN IV Hypoglycemia 08/30/16 18:15 09/29/16 18:14 Lactulose (Cephulac) 30 gm FOUR TIMES A DAY ORAL 08/30/16 21:00 09/29/16 20:59 08/31/16 13:12 Metoclopramide HCl (Reglan) 10 mg Q6H PRN IVP Nausea & Vomiting 08/30/16 18:15 09/29/16 18:14 Morphine Sulfate (Morphine Sulfate) 2 mg Q4H PRN IVP PAIN 4-10 08/30/16 18:15 09/06/16 18:14 Multivitamins (Multivitamin Hexavitamin) 5 ml DAILY GT 08/31/16 09:00 09/30/16 08:59 08/31/16 09:29 Ondansetron HCl (Zofran) 4 mg Q6H PRN IVP Nausea & Vomiting 08/30/16 18:15 09/29/16 18:14 Polyethylene Glycol (Miralax) 17 gm DAILYPRN PRN ORAL Constipation 08/30/16 18:15 09/29/16 18:14 Ranitidine HCl (Zantac) 150 mg QHS ORAL 08/30/16 21:00 09/29/16 20:59 08/30/16 20:24 Sodium Chloride (Sodium Chloride 1000ml bag) 1,000 ml @ 100 mls/hr Q10H IV 08/30/16 19:00 09/29/16 18:59 08/31/16 05:00 Vancomycin HCl 1 ea 1 ea DAILY PRN MISC Per rx protocol 08/30/16 18:15 09/29/16 18:14 Vitamin A/Vitamin D 1 applic 1 applic EVERY 12 HOURS TOPIC 08/30/16 21:00 09/29/16 20:59 08/31/16 09:00 Dominga Lugo (Vanchtein) VOCATIONAL TECHNICAL EDUCATION TEACHER Aug 31, 2016 14:15
--- NOTE | 2016-08-31 14:17 | Wound Care Consultation ---
Wound Assessment Wound Assessment #1: Wound Number: #1 Wound Present on Admission: Yes New Wound: No Status Change of Wound: No Wound Location Body Site Modif: right, dorsal - aspect of foot Wound Location Body Site: foot Wound Type: vascular wound Walter Test: Does not Walter Wound Thickness: Full Thickness Wound Length: 5.0 Wound Width: 2.0 Wound Depth: 0.3 Percent of Wound [place]/Red: 90 Percent of Wound Bed Yellow/Wh: 10 Wound Drainage Description: Serosanguineous Wound Drainage Amount: Scant Wound Drainage Odor: None/Absent Tissue Surrounding Wound: Macerated Wound General Appearance: Reddened Wound Assessment #2: Wound Number: #2 Wound Present on Admission: Yes New Wound: No Status Change of Wound: No Wound Location Body Site Modif: left Wound Location Body Site: heel Wound Type: pressure ulcer Walter Test: Does not Walter Pressure Ulcer Stage: deep tissue injury - suspected Wound Thickness: Full Thickness Wound Length: 4.0 Wound Width: 4.0 Wound Depth: utd Percent of Wound [place]/Red: 50 Percent of Wound Purple/Maroon: 50 Wound Drainage Amount: None Wound Drainage Odor: None/Absent Tissue Surrounding Wound: Intact Wound General Appearance: Open to air Wound Assessment #3: Wound Number: #3 Wound Present on Admission: Yes New Wound: No Status Change of Wound: No Wound Location Body Site: perianal Wound Type: chemical burn - chemical burn with erosion Walter Test: Does not Walter Wound Thickness: Partial Thickness Wound Drainage Amount: None Wound Drainage Odor: None/Absent Tissue Surrounding Wound: Macerated Wound General Appearance: Reddened Wound Assessment #4: Wound Number: #4 Wound Present on Admission: Yes New Wound: No Status Change of Wound: No Wound Location Body Site Modif: right, lateral - aspect of foot Wound Type: vascular wound Walter Test: Does not Walter Wound Thickness: Full Thickness Wound Length: 1.5 Wound Width: 1.0 Wound Depth: 0.2 Percent of Wound [place]/Red: 90 Percent of Wound Bed Yellow/Wh: 10 Wound Drainage Description: Serosanguineous Wound Drainage Amount: Scant Wound Drainage Odor: None/Absent Tissue Surrounding Wound: Macerated Wound General Appearance: Reddened, Necrotic Wound Assessment #5: Wound Number: #5 Wound Present on Admission: Yes New Wound: No Status Change of Wound: No Wound Location Body Site Modif: right, lateral Wound Location Body Site: malleolus/ankle Wound Type: pressure ulcer Walter Test: Does not Walter Pressure Ulcer Stage: IV/unstageable Wound Thickness: Full Thickness Wound Length: 3.0 Wound Width: 1.5 Wound Depth: utd Percent of Wound Bed Yellow/Wh: 100 Wound Drainage Description: Serosanguineous Wound Drainage Amount: Scant Wound Drainage Odor: None/Absent Tissue Surrounding Wound: Macerated Wound General Appearance: Necrotic Wound Assessment #6: Wound Number: #6 Wound Present on Admission: Yes New Wound: No Status Change of Wound: No Wound Location Body Site Modif: right, medial Wound Location Body Site: malleolus/ankle - EXTENDING TO MEDIAL HEEL . Wound Type: vascular wound Walter Test: Does not Walter Wound Thickness: Full Thickness Wound Length: 8.0 Wound Width: 6.0 Wound Depth: UTD Percent of Wound Bed Yellow/Wh: 100 Wound Drainage Amount: None Wound Drainage Odor: None/Absent Tissue Surrounding Wound: THICK DRY SCALY SKIN UNABLE TO SEE WOUND BED, POSSIBLE WOUND BENEATH THICK DRY SCALY SKIN ,FIRMLY HARD ADHERENT. Wound General Appearance: Necrotic Wound Assessment #7: Wound Number: #7 Wound Present on Admission: Yes New Wound: No Status Change of Wound: No Wound Location Body Site Modif: left, right, lower Wound Location Body Site: leg Wound Type: other - SCALY DRY SKIN Walter Test: Does not Walter Wound Drainage Amount: None Wound Drainage Odor: None/Absent Tissue Surrounding Wound: Intact Wound General Appearance: Open to air Wound Comment #1 Right dorsal aspect of foot vascular wound. #2 Left heel suspected deep tissue injury. #3 Perianal chemical burn with erosion. #4 Right foot lateral aspect of foot vascular wound. #5 Right lateral malleolus pressure injury stage IV/Unstageable. #6 Right medial malleolus extending to medial heel Vascular wound. #7 Right and left lower extremity dry scaly skin. Recommendation -FOLLOW UP WITH PODIATRY. PODIATRY CONSULT. -APPLY LOW AIR LOSS OVERLAY MATTRESS. -Turn and reposition. -Offload affected wound sites. -Provide gentle carmen care. -Optimize nutrition. -Keep clean and dry. -Provide skin moisturizer to BLE skin dryness. -Apply heel protectors. -Avoid shear and friction. -Assess and notify MD for any changes of condition. NIA ZAMORA Aug 31, 2016 14:17
[2016-08-31] MEDS ORDERED: NS 275ml ONE (14:35)
[2016-08-31] MEDS ORDERED: Tubing IV Secondary IV ONE (14:35)
--- NOTE | 2016-08-31 14:49 | Consultation ---
Consult Note Consult Note asked to eval for renal failure. 71-year-old male brought due to altered level consciousness from SN[facility] where he resides The patient had prior history of esophageal carcinoma in situ as well as encephalopathy. Patient with history of chronic respiratory failure with tracheostomy but was not on vent Patient was noted to have a recent ammonia level markedly elevated. patient in FREDI- Nonverbal On Vent Openeyes only examined- data reviewed- discussed with LIFESTYLE DIRECTOR Assessment/Plan IMP: acute renal failure acute hepatic encephalopathy tracheostomy status & acute on chronic respiratory failure sepsis with bacteremia / UTI esophageal CA cirrhosis & portal hypertension & ascites & thrombocytopenia , severe hypoalbuminemia R foot wound dysphagia, G tube Plan: Hydrate- Antibiotics- Avoid Nephrotoxics- Watch for Sxs of volume overload Monitor renal parameters HUMZA RICK Aug 31, 2016 14:49
[2016-08-31 16:00] VITALS: BP 157/76
[2016-08-31 20:00] VITALS: BP 143/80
[2016-08-31] MEDS: Cefepime HCl 1 GM in D5W 55 ML IVPB SCH (20:27)
[2016-09-01] VITALS (7 sets, daily range): BP systolic 145–173; BP diastolic 80–98
[2016-09-01 06:57] LABS: MEAN CORPUSCULAR HEMOGLOBIN 30.7 PG (27.0-31.0); MEAN CORPUSCULAR HGB CONC 31.8 G/DL (32.0-36.0); MEAN CORPUSCULAR VOLUME 97 FL (80-99); MEAN PLATELET VOLUME 7.8 FL (6.5-10.1); PLATELET COUNT 49 K/UL (150-450); RED CELL DISTRIBUTION WIDTH 17.4 % (11.6-14.8); WHITE BLOOD COUNT 9.4 K/UL (4.8-10.8)
[2016-09-01 07:52] LABS: ALANINE AMINOTRANSFERASE 53 U/L (3-41); ALBUMIN/GLOBULIN RATIO 0.2 (1.0-2.7); ANION GAP 15 (5-15); ASPARTATE AMINO TRANSFERASE 144 U/L (5-40); CALCIUM 7.3 mg/dL (8.6-10.2); CARBON DIOXIDE 19 mEQ/L (20-30); CHLORIDE 111 mEQ/L (98-107); CHOLESTEROL 30 mg/dL (< 200); CREATININE 2.7 mg/dL (0.7-1.2); FERRITIN 615 ng/mL (10-230); HEMOLYSIS 4; LDL CHOLESTEROL (CALC.) 19 mg/dL (60-99); POTASSIUM 3.8 mEQ/L (3.4-4.9); SODIUM 145 mEQ/L (135-145); TOTAL PROTEIN 7.5 g/dL (6.6-8.7)
[2016-09-01 07:56] LABS: HEMOLYSIS 6; IRON 80 ug/dL (59-158); TOTAL IRON BINDING CAPACITY 139 ug/dL (250-400)
[2016-09-01 08:00] LABS: REFLEX LACTIC ACID YES OR NO YES
[2016-09-01] MEDS: Multivitamin 5ml Liquid GT SCH (08:36)
[2016-09-01] MEDS: Lactulose 20gm/30ml UDC ORAL SCH ×4 (08:36→21:04)
[2016-09-01] MEDS: Vitamin A&D Oint 2oz Tube TOPIC SCH ×2 (08:36→20:52)
[2016-09-01 08:48] LABS: ANISOCYTOSIS 1+; BAND NEUTROPHILS % (MANUAL) 0 % (0-8); BASOPHILS % (MANUAL) 0 % (0-2); EOSINOPHILS % (MANUAL) 3 % (0-3); LYMPHOCYTES % (MANUAL) 10 % (20-45); NEUTROPHILS % (MANUAL) 69 % (45-75); PLATELET ESTIMATE DECREASED; PLATELET MORPHOLOGY NORMAL; TOTAL CELLS COUNTED 100
[2016-09-01] MEDS: Rifaximin 550mg tab ORAL SCH ×2 (08:59→20:53)
[2016-09-01 09:11] LABS: MAGNESIUM 1.8 mg/dL (1.7-2.5); URIC ACID 6.5 mg/dL (3.0-7.5)
[2016-09-01 09:25] LABS: HEMOGLOBIN A1C 4.5 % (< 6.0)
--- NOTE | 2016-09-01 09:55 | Pulmonology Progress Note ---
Assessment/Plan Assessment/Plan ASSESSMENT acute hepatic encephalopathy tracheostomy status acute on chronic respiratory failure sepsis with bacteremia UTI tracheostomy status tracheostomy status esophageal CA cirrhosis portal hypertension ascites thrombocytopenia acute renal failure UTI elevated LFT R foot wound dysphagia, G tube PLAN OF CARE FREDI status off vent trach care , pulmonary toilet titrate FiO2 to keep sat above 92% abx, ID follows sputum cx pending, urine cx + E coli ESBL, blood cx + GNR , repeated blood cx + GNR strict aspiration precautions, GT feeding, monitor tolerance continue lactulose, check ammonia level in am monitor renal parameters and lytes-, creat down to 2.7 decrease rate ofIVF avoid nephrotoxic renal US nephro follows monitor PLT, no Heparin abdominal US reveal liver disease/cirrhosis with stigmata of portal hypertension including splenomegaly, ascites, portosystemic varices, hepatofugal portal vein flow hepatitis panel pending GI consult this am appreciated, check AFP wound care wound nurse eval GI prophylaxis Venous Duplex BLE if negative, place SCD pain management case discussed and evaluated by supervising physician Subjective Allergies: Coded Allergies: No Known Allergies (Unverified , 08/30/16) Subjective afebrile, no leukocytosis off vent, on FiO2- 28% via T collar, no signs of respiratory distress creat down to 2.7 Objective Last 24 Hour Vital Signs Date Time Temp Pulse Resp B/P Pulse Ox O2 Delivery O2 Flow Rate FiO2 09/01/16 08:00 98.1 81 22 159/82 100 Trach Collar 28 09/01/16 06:00 28 09/01/16 05:00 97.4 81 22 145/80 100 Trach Collar 6.0 09/01/16 04:00 69 09/01/16 04:00 28 09/01/16 04:00 97.9 81 22 169/94 100 Trach Collar 6.0 09/01/16 01:09 100 Trach Collar 8.0 28 09/01/16 01:09 Trach Collar 8.0 28 09/01/16 00:00 97.7 77 22 165/93 100 Trach Collar 6.0 09/01/16 00:00 70 08/31/16 20:00 28 08/31/16 20:00 97.9 75 24 143/80 99 Trach Collar 28 08/31/16 19:10 76 16 Trach Collar 8.0 28 08/31/16 19:10 Trach Collar 8.0 28 08/31/16 19:10 100 Trach Collar 8.0 28 08/31/16 19:06 74 08/31/16 16:00 70 08/31/16 16:00 97.7 70 18 157/76 99 Trach Collar 28 08/31/16 16:00 28.0 08/31/16 13:05 100 Trach Collar 10.0 28 08/31/16 13:05 Trach Collar 10.0 28 08/31/16 12:42 71 08/31/16 12:00 28.0 08/31/16 12:00 97.7 72 24 154/77 100 Trach Collar 28 08/31/16 10:48 Trach Collar 28.0 08/31/16 10:40 Trach Collar 10.0 28 08/31/16 10:40 100 Trach Collar 10.0 28 Intake and Output 08/31/16 09/01/16 19:00 07:00 Intake Total 2380 ml 1610 ml Output Total 1250 ml 1150 ml Balance 1130 ml 460 ml Intake Free Water 250 ml 250 ml IV Total 1500 ml 900 ml Tube Feeding 630 ml 460 ml Output Urine Total 1250 ml 1150 ml Objective General Appearance: not responsive bedridden AA male in NAD Lines, tubes and drains: peripheral, trach- collar with 28% cool mist, secretions scant, white, thin HEENT: atraumatic, anicteric Respiratory/Chest: lungs clear, no respiratory distress Cardiovascular/Chest: normal rate, regular rhythm Abdomen: normal bowel sounds, non tender, soft, feeding tube - G tube Skin Exam: other - R lower leg wound Neurologic: abnormal gait, not responsive , lethargic, spastic LE Microbiology Date/Time Source Procedure Growth Status 08/30/16 22:00 Blood Blood Culture - Preliminary Gram Negative Jarod Resulted 08/30/16 22:00 Blood Blood Culture - Preliminary Gram Negative Jarod Resulted 08/30/16 14:15 Blood Blood Culture - Preliminary Gram Negative Jarod Resulted 08/30/16 14:00 Blood Blood Culture - Preliminary Gram Negative Jarod Resulted 08/31/16 04:20 Sputum Induced Gram Stain - Final Resulted 08/31/16 04:20 Sputum Induced Sputum Culture Pending Resulted 08/30/16 15:32 Urine,Clean Catch Urine Culture - Final Escherichia Coli - Esbl Complete 08/30/16 15:01 Rectum VRE Culture - Final Enterococcus Faecium - Vre Complete Laboratory Tests 09/01/16 06:30: White Blood Count 9.4, Red Blood Count 3.30L, Hemoglobin 10.1L, Hematocrit 31.9L , Mean Corpuscular Volume 97, Mean Corpuscular Hemoglobin 30.7, Mean Corpuscular Hemoglobin Concent 31.8L, Red Cell Distribution Width 17.4H, Platelet Count 49L, Mean Platelet Volume 7.8, Neutrophils (%) (Auto) , Lymphocytes (%) (Auto) , Monocytes (%) (Auto) , Eosinophils (%) (Auto) , Basophils (%) (Auto) , Differential Total Cells Counted 100, Neutrophils % ( Manual) 69, Lymphocytes % (Manual) 10L, Monocytes % (Manual) 18H, Eosinophils % (Manual) 3, Basophils % (Manual) 0, Band Neutrophils 0, Platelet Estimate DecreasedL, Platelet Morphology Normal, Anisocytosis 1+, Sodium Level 145, Potassium Level 3.8, Chloride Level 111H, Carbon Dioxide Level 19L, Anion Gap 15 , Blood Urea Nitrogen 67H, Creatinine 2.7H, Estimat Glomerular Filtration Rate , Glucose Level 136H, Hemoglobin A1c 4.5, Lactic Acid Level 2.10, Uric Acid 6.5 , Calcium Level 7.3L, Phosphorus Level 4.0, Magnesium Level 1.8, Iron Level 80, Total Iron Binding Capacity 139L, Percent Iron Saturation 58H, Unsaturated Iron Binding 59L, Ferritin 615H, Total Bilirubin 0.9, Gamma Glutamyl Transpeptidase 100H, Aspartate Amino Transf (AST/SGOT) 144H, Alanine Aminotransferase (ALT/SGPT ) 53H, Alkaline Phosphatase 250H, Total Creatine Kinase 43, C-Reactive Protein, Quantitative 10.0H, Pro-B-Type Natriuretic Peptide 3512H, Total Protein 7.5, Albumin 1.5L, Globulin 6.0, Albumin/Globulin Ratio 0.2L, Triglycerides Level 31 , Cholesterol Level 30, LDL Cholesterol 19L, HDL Cholesterol 5, Cholesterol/HDL Ratio 6.0H, Vitamin B12 Level 1633H, Folate [Pending], Thyroid Stimulating Hormone (TSH) 23.560H, Random Vancomycin Level 10.7 09/01/16 08:45: Lactic Acid Level 2.20 Current Medications Medications (Trade) Dose Ordered Sig/Darren Route PRN Reason Start Time Stop Time Status Last Admin Dose Admin Acetaminophen (Tylenol) 650 mg Q4H PRN RECTAL T>100.5 08/30/16 18:15 09/29/16 18:14 Albuterol/ Ipratropium (DuoNeb 0.5-3(2.5)mg/3ml) 3 ml Q4H PRN HHN Shortness of Breath 08/30/16 18:15 09/04/16 18:14 Cefepime HCl/ Dextrose (Maxipime/D5W) 55 ml @ 110 mls/hr Q24H IVPB 08/30/16 20:00 09/06/16 19:59 08/31/16 20:27 Dextrose STAT PRN IV Hypoglycemia 08/30/16 18:15 09/29/16 18:14 Lactulose (Cephulac) 30 gm FOUR TIMES A DAY ORAL 08/30/16 21:00 09/29/16 20:59 09/01/16 08:36 Metoclopramide HCl (Reglan) 10 mg Q6H PRN IVP Nausea & Vomiting 08/30/16 18:15 09/29/16 18:14 Morphine Sulfate (Morphine Sulfate) 2 mg Q4H PRN IVP PAIN 4-10 08/30/16 18:15 09/06/16 18:14 Multivitamins (Multivitamin Hexavitamin) 5 ml DAILY GT 08/31/16 09:00 09/30/16 08:59 09/01/16 08:36 Ondansetron HCl (Zofran) 4 mg Q6H PRN IVP Nausea & Vomiting 08/30/16 18:15 09/29/16 18:14 Polyethylene Glycol (Miralax) 17 gm DAILYPRN PRN ORAL Constipation 08/30/16 18:15 09/29/16 18:14 Propranolol HCl 10 mg 10 mg Q8HR ORAL 09/01/16 14:00 10/01/16 13:59 Ranitidine HCl (Zantac) 150 mg QHS ORAL 08/30/16 21:00 09/29/16 20:59 08/31/16 20:59 Rifaximin (Xifaxan) 550 mg EVERY 12 HOURS ORAL 09/01/16 09:00 09/08/16 08:59 09/01/16 08:59 Sodium Chloride (Sodium Chloride 1000ml bag) 1,000 ml @ 75 mls/hr [id number] IV 08/31/16 15:00 09/30/16 14:59 09/01/16 02:34 Vancomycin HCl 1 ea 1 ea DAILY PRN MISC Per rx protocol 08/30/16 18:15 09/29/16 18:14 Vancomycin HCl/ Dextrose (Vancomycin/D5W) 325 ml @ 162.5 mls/ hr ONCE ONCE IVPB 09/01/16 12:00 09/01/16 13:59 Vitamin A/Vitamin D (A & D Oint) 1 applic EVERY 12 HOURS TOPIC 08/30/16 21:00 09/29/16 20:59 09/01/16 08:36 Parish (Rick)oDminga NP Sep 01, 2016 09:55
--- NOTE | 2016-09-01 11:14 | General Progress Note ---
Assessment/Plan Status: stable - from renal stand Status Narrative Cr lower Assessment/Plan status: acute renal failure - improving acute hepatic encephalopathy tracheostomy status & acute on chronic respiratory failure sepsis with bacteremia / UTI esophageal CA cirrhosis & portal hypertension & ascites & thrombocytopenia , severe hypoalbuminemia R foot wound dysphagia, G tube Plan: decrease rate of Hydrate- Antibiotics- Avoid Nephrotoxics- Watch for Sxs of volume overload Monitor renal parameters Subjective ROS Limited/Unobtainable: No Allergies: Coded Allergies: No Known Allergies (Unverified , 08/30/16) Objective Last 24 Hour Vital Signs Date Time Temp Pulse Resp B/P Pulse Ox O2 Delivery O2 Flow Rate FiO2 09/01/16 08:55 100 09/01/16 08:00 79 09/01/16 08:00 98.1 81 22 159/82 100 Trach Collar 28 09/01/16 06:45 Trach Collar 6.0 28 09/01/16 06:45 98 Trach Collar 6.0 28 09/01/16 06:45 78 21 Trach Collar 6.0 28 09/01/16 06:00 28 09/01/16 05:00 97.4 81 22 145/80 100 Trach Collar 6.0 09/01/16 04:00 69 09/01/16 04:00 28 09/01/16 04:00 97.9 81 22 169/94 100 Trach Collar 6.0 09/01/16 01:09 100 Trach Collar 8.0 28 09/01/16 01:09 Trach Collar 8.0 28 09/01/16 00:00 97.7 77 22 165/93 100 Trach Collar 6.0 09/01/16 00:00 70 08/31/16 20:00 28 08/31/16 20:00 97.9 75 24 143/80 99 Trach Collar 28 08/31/16 19:10 76 16 Trach Collar 8.0 28 08/31/16 19:10 Trach Collar 8.0 28 08/31/16 19:10 100 Trach Collar 8.0 28 08/31/16 19:06 74 08/31/16 16:00 70 08/31/16 16:00 97.7 70 18 157/76 99 Trach Collar 28 08/31/16 16:00 28.0 08/31/16 13:05 100 Trach Collar 10.0 28 08/31/16 13:05 Trach Collar 10.0 28 08/31/16 12:42 71 08/31/16 12:00 28.0 08/31/16 12:00 97.7 72 24 154/77 100 Trach Collar 28 Intake and Output 08/31/16 09/01/16 19:00 07:00 Intake Total 2380 ml 1610 ml Output Total 1250 ml 1150 ml Balance 1130 ml 460 ml Intake Free Water 250 ml 250 ml IV Total 1500 ml 900 ml Tube Feeding 630 ml 460 ml Output Urine Total 1250 ml 1150 ml Laboratory Tests 09/01/16 06:30: White Blood Count 9.4, Red Blood Count 3.30L, Hemoglobin 10.1L, Hematocrit 31.9L , Mean Corpuscular Volume 97, Mean Corpuscular Hemoglobin 30.7, Mean Corpuscular Hemoglobin Concent 31.8L, Red Cell Distribution Width 17.4H, Platelet Count 49L, Mean Platelet Volume 7.8, Neutrophils (%) (Auto) , Lymphocytes (%) (Auto) , Monocytes (%) (Auto) , Eosinophils (%) (Auto) , Basophils (%) (Auto) , Differential Total Cells Counted 100, Neutrophils % ( Manual) 69, Lymphocytes % (Manual) 10L, Monocytes % (Manual) 18H, Eosinophils % (Manual) 3, Basophils % (Manual) 0, Band Neutrophils 0, Platelet Estimate DecreasedL, Platelet Morphology Normal, Anisocytosis 1+, Sodium Level 145, Potassium Level 3.8, Chloride Level 111H, Carbon Dioxide Level 19L, Anion Gap 15 , Blood Urea Nitrogen 67H, Creatinine 2.7H, Estimat Glomerular Filtration Rate , Glucose Level 136H, Hemoglobin A1c 4.5, Lactic Acid Level 2.10, Uric Acid 6.5 , Calcium Level 7.3L, Phosphorus Level 4.0, Magnesium Level 1.8, Iron Level 80, Total Iron Binding Capacity 139L, Percent Iron Saturation 58H, Unsaturated Iron Binding 59L, Ferritin 615H, Total Bilirubin 0.9, Gamma Glutamyl Transpeptidase 100H, Aspartate Amino Transf (AST/SGOT) 144H, Alanine Aminotransferase (ALT/SGPT ) 53H, Alkaline Phosphatase 250H, Total Creatine Kinase 43, C-Reactive Protein, Quantitative 10.0H, Pro-B-Type Natriuretic Peptide 3512H, Total Protein 7.5, Albumin 1.5L, Globulin 6.0, Albumin/Globulin Ratio 0.2L, Triglycerides Level 31 , Cholesterol Level 30, LDL Cholesterol 19L, HDL Cholesterol 5, Cholesterol/HDL Ratio 6.0H, Vitamin B12 Level 1633H, Folate [Pending], Thyroid Stimulating Hormone (TSH) 23.560H, Random Vancomycin Level 10.7 09/01/16 08:45: Lactic Acid Level 2.20 Height (Feet): 6 Height (Inches): 0.00 Weight (Pounds): 200 General Appearance: no apparent distress EENT: other - on Vent Cardiovascular: normal rate Respiratory/Chest: decreased breath sounds Abdomen: distended HUMZA RICK Sep 01, 2016 11:14
[2016-09-01] MEDS ORDERED: Vancomycin 1.5 GM in D5W 325 ML IVPB ONE (12:00)
[2016-09-01] MEDS: Propranolol 10mg tab ORAL SCH ×2 (13:24→21:05)
[2016-09-01] MEDS: Morphine Sulfate 2mg/ml Inj IVP PRN (13:25)
[2016-09-01] MEDS: Ertapenem 1 GM in NS 55 ML IVPB SCH (15:09)
--- NOTE | 2016-09-01 16:32 | Cardiology Report ---
APPROVED REPORT EKG Measurement Heart [id number] Sinus rhythm with premature atrial complexes Anterior infarct, age undetermined Abnormal ECG
--- NOTE | 2016-09-01 17:28 | Infectious Diseases Prog Note ---
Assessment/Plan Assessment/Plan ASSESSMENT: 71 y/o male with: GNR bacteremia 03/04, m/l urinary source - C&S pending ESBL(+) E.coli UTI US: Suspected small nonobstructive stone left kidney Severe sepsis - resolved lactic acidosis Afebrile without leukocytosis Acute encephalopathy, m/l septic, hepatic CT Head: pending elevated NH4 Elevated LFTs / cirrhosis - improved, hepatitis panel pending US: Liver disease/cirrhosis with stigmata of portal hypertension, Gallstone ARF - improved Chronic VDRF SP trach, PEG Thrombocytopenia h/o esophageal CA [facility] resident NKDA Full Code PLAN: change Cefepime d# 3 to invanz d# 1 / 14 based on cultures, DC IV vancomycin d # 3 f/u cultures, repeat BCx in AM to document clearance f/u CT head Monitor CBC, temperatures Monitor CMP Monitor CXR Hepatitis panel :P vent support, trach care, aspiration precautions Subjective Allergies: Coded Allergies: No Known Allergies (Unverified , 08/30/16) Subjective remains afebrile on vent BCx GNR, UCx ESBL Objective Vital Signs Last 24 Hour Vital Signs Date Time Temp Pulse Resp B/P Pulse Ox O2 Delivery O2 Flow Rate FiO2 09/01/16 16:00 70 09/01/16 16:00 97.8 70 20 160/98 100 09/01/16 16:00 28 09/01/16 13:55 97.5 09/01/16 13:38 Trach Collar 6.0 28 09/01/16 13:38 100 Trach Collar 6.0 28 09/01/16 13:24 106 159/80 09/01/16 12:00 79 09/01/16 12:00 28 09/01/16 12:00 97.5 79 20 159/80 100 Trach Collar 28 09/01/16 08:55 100 09/01/16 08:00 28 09/01/16 08:00 79 09/01/16 08:00 98.1 81 22 159/82 100 Trach Collar 28 09/01/16 06:45 Trach Collar 6.0 28 09/01/16 06:45 98 Trach Collar 6.0 28 09/01/16 06:45 78 21 Trach Collar 6.0 28 09/01/16 06:00 28 09/01/16 05:00 97.4 81 22 145/80 100 Trach Collar 6.0 09/01/16 04:00 69 09/01/16 04:00 28 09/01/16 04:00 97.9 81 22 169/94 100 Trach Collar 6.0 09/01/16 01:09 100 Trach Collar 8.0 28 09/01/16 01:09 Trach Collar 8.0 28 09/01/16 00:00 97.7 77 22 165/93 100 Trach Collar 6.0 09/01/16 00:00 70 08/31/16 20:00 28 08/31/16 20:00 97.9 75 24 143/80 99 Trach Collar 28 08/31/16 19:10 76 16 Trach Collar 8.0 28 08/31/16 19:10 Trach Collar 8.0 28 08/31/16 19:10 100 Trach Collar 8.0 28 08/31/16 19:06 74 Height (Feet): 6 Height (Inches): 0.00 Weight (Pounds): 200 General Appearance: no acute distress HEENT: status post trach Respiratory/Chest: decreased breath sounds Cardiovascular: normal rate, regular rhythm Abdomen: normal bowel sounds, soft, non tender, non distended Microbiology Date/Time Source Procedure Growth Status 08/30/16 22:00 Blood Blood Culture - Preliminary Gram Negative Jarod Resulted 08/30/16 22:00 Blood Blood Culture - Preliminary Gram Negative Jarod Resulted 08/30/16 14:15 Blood Blood Culture - Preliminary Gram Negative Jarod Resulted 08/30/16 14:00 Blood Blood Culture - Preliminary Gram Negative Jarod Resulted 08/31/16 04:20 Sputum Induced Gram Stain - Final Resulted 08/31/16 04:20 Sputum Induced Sputum Culture Pending Resulted 08/30/16 15:01 Nasal Nares MRSA Culture - Final NO METHICILLIN RESISTANT STAPH AUREUS... Complete 08/30/16 15:32 Urine,Clean Catch Urine Culture - Final Escherichia Coli - Esbl Complete 08/30/16 15:01 Rectum VRE Culture - Final Enterococcus Faecium - Vre Complete Laboratory Tests Test 09/01/16 06:30 09/01/16 08:45 White Blood Count 9.4 K/UL (4.8-10.8) Red Blood Count 3.30 M/UL (4.70-6.10) L Hemoglobin 10.1 G/DL (14.2-18.0) L Hematocrit 31.9 % (42.0-52.0) L Mean Corpuscular Volume 97 FL (80-99) Mean Corpuscular Hemoglobin 30.7 PG (27.0-31.0) Mean Corpuscular Hemoglobin Concent 31.8 G/DL (32.0-36.0) L Red Cell Distribution Width 17.4 % (11.6-14.8) H Platelet Count 49 K/UL (150-450) L Mean Platelet Volume 7.8 FL (6.5-10.1) Neutrophils (%) (Auto) % (45.0-75.0) Lymphocytes (%) (Auto) % (20.0-45.0) Monocytes (%) (Auto) % (1.0-10.0) Eosinophils (%) (Auto) % (0.0-3.0) Basophils (%) (Auto) % (0.0-2.0) Differential Total Cells Counted 100 Neutrophils % (Manual) 69 % (45-75) Lymphocytes % (Manual) 10 % (20-45) L Monocytes % (Manual) 18 % (1-10) H Eosinophils % (Manual) 3 % (0-3) Basophils % (Manual) 0 % (0-2) Band Neutrophils 0 % (0-8) Platelet Estimate Decreased L Platelet Morphology Normal Anisocytosis 1+ Sodium Level 145 mEQ/L (135-145) Potassium Level 3.8 mEQ/L (3.4-4.9) Chloride Level 111 mEQ/L (98-107) H Carbon Dioxide Level 19 mEQ/L (20-30) L Anion Gap 15 (5-15) Blood Urea Nitrogen 67 mg/dL (7-23) H Creatinine 2.7 mg/dL (0.7-1.2) H Estimat Glomerular Filtration Rate mL/min (>60) Glucose Level 136 mg/dL (74-106) H Hemoglobin A1c 4.5 % (< 6.0) Lactic Acid Level 2.10 mmol/L (0.66-2.22) 2.20 mmol/L (0.66-2.22) Uric Acid 6.5 mg/dL (3.0-7.5) Calcium Level 7.3 mg/dL (8.6-10.2) L Phosphorus Level 4.0 mg/dL (2.5-4.8) Magnesium Level 1.8 mg/dL (1.7-2.5) Iron Level 80 ug/dL (59-158) Total Iron Binding Capacity 139 ug/dL (250-400) L Percent Iron Saturation 58 % (15-50) H Unsaturated Iron Binding 59 ug/dL (112-346) L Ferritin 615 ng/mL (10-230) H Total Bilirubin 0.9 mg/dL (0.0-1.2) Gamma Glutamyl Transpeptidase 100 U/L (8-61) H Aspartate Amino Transf (AST/SGOT) 144 U/L (5-40) H Alanine Aminotransferase (ALT/SGPT) 53 U/L (3-41) H Alkaline Phosphatase 250 U/L (40-129) H Total Creatine Kinase 43 U/L (38-174) C-Reactive Protein, Quantitative 10.0 mg/dL (< 0.5) H Pro-B-Type Natriuretic Peptide 3512 pg/mL (0-125) H Total Protein 7.5 g/dL (6.6-8.7) Albumin 1.5 g/dL (3.5-5.2) L Globulin 6.0 g/dL Albumin/Globulin Ratio 0.2 (1.0-2.7) L Triglycerides Level 31 mg/dL (< 150) Cholesterol Level 30 mg/dL (< 200) LDL Cholesterol 19 mg/dL (60-99) L HDL Cholesterol 5 mg/dL (> 60) Cholesterol/HDL Ratio 6.0 (3.3-4.4) H Vitamin B12 Level 1633 pg/mL (211-946) H Folate Pending Thyroid Stimulating Hormone (TSH) 23.560 uIU/mL (0.300-4.500) Random Vancomycin Level 10.7 ug/mL Current Medications Medications (Trade) Dose Ordered Sig/Darren Route PRN Reason Start Time Stop Time Status Last Admin Dose Admin Acetaminophen (Tylenol) 650 mg Q4H PRN RECTAL T>100.5 08/30/16 18:15 09/29/16 18:14 Albuterol/ Ipratropium (DuoNeb 0.5-3(2.5)mg/3ml) 3 ml Q4H PRN HHN Shortness of Breath 08/30/16 18:15 09/04/16 18:14 Dextrose (Dextrose 50%) STAT PRN IV Hypoglycemia 2/3/17 18:15 09/29/16 18:14 Ertapenem/Sodium Chloride (INVanz/Sodium Chloride) 55 ml @ 110 mls/hr Q24H IVPB 09/01/16 15:00 09/06/16 14:59 09/01/16 15:09 Lactulose (Cephulac) 30 gm FOUR TIMES A DAY ORAL 08/30/16 21:00 09/29/16 20:59 09/01/16 12:20 Levothyroxine Sodium (Synthroid) 50 mcg DAILY IV 09/01/16 11:45 10/01/16 11:44 09/01/16 11:48 Metoclopramide HCl (Reglan) 10 mg Q6H PRN IVP Nausea & Vomiting 08/30/16 18:15 09/29/16 18:14 Metoprolol Tartrate 50 mg 50 mg EVERY 12 HOURS GT 09/01/16 21:00 10/01/16 20:59 Morphine Sulfate (Morphine Sulfate) 2 mg Q4H PRN IVP PAIN 4-10 08/30/16 18:15 09/06/16 18:14 09/01/16 13:25 Multivitamins (Multivitamin Hexavitamin) 5 ml DAILY GT 08/31/16 09:00 09/30/16 08:59 09/01/16 08:36 Ondansetron HCl (Zofran) 4 mg Q6H PRN IVP Nausea & Vomiting 08/30/16 18:15 09/29/16 18:14 Polyethylene Glycol (Miralax) 17 gm DAILYPRN PRN ORAL Constipation 08/30/16 18:15 09/29/16 18:14 Propranolol HCl 10 mg 10 mg Q8HR ORAL 09/01/16 14:00 10/01/16 13:59 09/01/16 13:24 Ranitidine HCl (Zantac) 150 mg QHS ORAL 08/30/16 21:00 09/29/16 20:59 08/31/16 20:59 Rifaximin (Xifaxan) 550 mg EVERY 12 HOURS ORAL 09/01/16 09:00 09/08/16 08:59 09/01/16 08:59 Sodium Chloride (Sodium Chloride 1000ml bag) 1,000 ml @ 40 mls/hr Q24H IV 09/01/16 11:30 10/01/16 11:29 09/01/16 11:19 Vancomycin HCl (Vanco rx to dose) 1 ea DAILY PRN MISC Per rx protocol 08/30/16 18:15 09/29/16 18:14 Vitamin A/Vitamin D (A & D Oint) 1 applic EVERY 12 HOURS TOPIC 08/30/16 21:00 09/29/16 20:59 09/01/16 08:36 TIAN PERERA Sep 01, 2016 17:28
--- NOTE | 2016-09-01 18:08 | Consultation ---
DATE OF CONSULTATION: 09/01/2016 GASTROENTEROLOGY CONSULTATION CHIEF COMPLAINT: Cirrhosis. HISTORY OF PRESENT ILLNESS: This is an unfortunate [id number] with history of esophageal cancer and history of anoxic brain injury with tracheostomy and percutaneous endoscopic gastrostomy, came to the hospital with altered mental status and was found to have elevated ammonia level, so gastrointestinal consultation was requested for evaluation. PAST MEDICAL HISTORY: Significant for: 1. History of cirrhosis. 2. History of esophageal cancer. 3. History of anoxic brain injury. 4. Hypertension. 5. Chronic obstructive pulmonary disease. 6. Diabetes. 7. Anemia. PAST SURGICAL HISTORY: Tracheostomy. SOCIAL HISTORY: Currently lives in intermediate. No history of tobacco, alcohol, or drug abuse. FAMILY HISTORY: Noncontributory. REVIEW OF SYSTEMS: Unable to obtain. PHYSICAL EXAMINATION: VITAL SIGNS: Temperature 97.4 degrees, pulse 81, respirations 22, and blood pressure 144/80. HEENT: Normocephalic and atraumatic. Sclerae anicteric. NECK: Supple. No evidence of lymphadenopathy. CARDIOVASCULAR: Regular rate and rhythm. Plus S1 and S2. LUNGS: Decreased breath sounds bilaterally and diffusely. ABDOMEN: Soft and nontender. G-tube in place. There is evidence of some ascites. EXTREMITIES: No cyanosis, no clubbing, no edema. LABORATORY DATA: White count is 9.4, hemoglobin 10.1, hematocrit 31, and platelet count is 49. Chem-7, sodium 145, potassium 3.8, BUN 65, creatinine 2.7, and glucose 136. Albumin is low at 1.5. ASSESSMENT: 1. Anemia. 2. Dysphagia. 3. Cirrhosis. 4. Portal hypertension. 5. Esophageal cancer. 6. Dysphagia with gastrostomy tube. 7. Elevated ammonia level. PLAN: Add to lactulose. Get the PT, PTT, and INR. Send alpha-fetoprotein. G-tube feeding. The patient may need paracentesis. We will start the patient on propranolol 10 mg t.i.d. for the esophageal varices prophylaxis. The patient is not a candidate for Lasix and Aldactone given renal insufficiency and renal disease. Kennedy Grace M.D. DR: JANICE JOB#: [id number] CC:
[2016-09-01] MEDS: Metoprolol 50mg tab GT SCH (20:53)
[2016-09-02] VITALS: BP 153/76
[2016-09-02] MEDS: Morphine Sulfate 2mg/ml Inj IVP PRN (00:12)
[2016-09-02 04:00] VITALS: BP 161/82
[2016-09-02 05:20] LABS: MEAN CORPUSCULAR HEMOGLOBIN 30.9 PG (27.0-31.0); MEAN CORPUSCULAR HGB CONC 31.8 G/DL (32.0-36.0); MEAN CORPUSCULAR VOLUME 97 FL (80-99); MEAN PLATELET VOLUME 8.2 FL (6.5-10.1); PLATELET COUNT 50 K/UL (150-450); RED BLOOD COUNT 2.93 M/UL (4.70-6.10); RED CELL DISTRIBUTION WIDTH 17.4 % (11.6-14.8); WHITE BLOOD COUNT 6.5 K/UL (4.8-10.8)
[2016-09-02] MEDS: Propranolol 10mg tab ORAL SCH ×3 (05:23→21:56)
[2016-09-02 05:29] LABS: ALANINE AMINOTRANSFERASE 72 U/L (3-41); ALBUMIN/GLOBULIN RATIO 0.2 (1.0-2.7); ANION GAP 8 (5-15); ASPARTATE AMINO TRANSFERASE 200 U/L (5-40); CALCIUM 7.5 mg/dL (8.6-10.2); CARBON DIOXIDE 22 mEQ/L (20-30); CHLORIDE 117 mEQ/L (98-107); CREATININE 1.7 mg/dL (0.7-1.2); HEMOLYSIS 3; POTASSIUM 3.9 mEQ/L (3.4-4.9); SODIUM 147 mEQ/L (135-145); TOTAL PROTEIN 7.2 g/dL (6.6-8.7)
[2016-09-02 05:31] LABS: INR 1.4 (0.9-1.1); PROTHROMBIN TIME 14.7 SEC (9.30-11.50)
[2016-09-02 06:44] LABS: AMMONIA 80 umol/L (16-60)
[2016-09-02 06:46] LABS: MAGNESIUM 1.7 mg/dL (1.7-2.5); PHOSPHORUS 3.5 mg/dL (2.5-4.8); URIC ACID 6.4 mg/dL (3.0-7.5)
[2016-09-02 08:00] VITALS: BP 169/75
[2016-09-02] MEDS: Rifaximin 550mg tab ORAL SCH ×2 (08:28→20:44)
[2016-09-02] MEDS: Lactulose 20gm/30ml UDC ORAL SCH ×4 (08:28→20:52)
[2016-09-02] MEDS: Vitamin A&D Oint 2oz Tube TOPIC SCH ×2 (08:28→20:45)
[2016-09-02] MEDS: Multivitamin 5ml Liquid GT SCH (08:28)
[2016-09-02] MEDS: Metoprolol 50mg tab GT SCH ×2 (08:45→20:44)
--- NOTE | 2016-09-02 10:30 | General Progress Note ---
Assessment/Plan Status: stable Status Narrative renal parameters much improved Assessment/Plan Status: acute renal failure - improving acute hepatic encephalopathy tracheostomy status & acute on chronic respiratory failure sepsis with bacteremia / UTI esophageal CA cirrhosis & portal hypertension & ascites & thrombocytopenia , severe hypoalbuminemia R foot wound dysphagia, G tube Plan: stop hydration- Antibiotics- Avoid Nephrotoxics- Watch for Sxs of volume overload Monitor renal parameters Subjective ROS Limited/Unobtainable: No Constitutional: Reports: malaise Allergies: Coded Allergies: No Known Allergies (Unverified , 08/30/16) Objective Last 24 Hour Vital Signs Date Time Temp Pulse Resp B/P Pulse Ox O2 Delivery O2 Flow Rate FiO2 09/02/16 08:45 64 169/75 09/02/16 08:00 97.7 64 20 169/75 100 T-piece 28 09/02/16 08:00 61 09/02/16 08:00 28 09/02/16 07:39 T-piece 5.0 28 09/02/16 07:39 100 T-piece 5.0 09/02/16 07:38 70 16 T-piece 5.0 09/02/16 05:23 61 161/82 09/02/16 04:00 96.8 61 18 161/82 100 Trach Collar 09/02/16 04:00 28 09/02/16 03:45 59 09/02/16 01:06 T-piece 5.0 09/02/16 01:05 100 T-piece 5.0 09/02/16 00:00 65 09/02/16 00:00 96.4 61 16 153/76 100 Trach Collar 09/02/16 00:00 28 09/01/16 21:05 69 173/92 09/01/16 20:53 74 173/92 09/01/16 20:00 98.2 74 18 173/92 100 Trach Collar 28 09/01/16 20:00 98.2 74 18 173/92 100 09/01/16 20:00 70 09/01/16 20:00 28 09/01/16 19:00 T-piece 5.0 28 09/01/16 19:00 69 16 T-piece 5.0 09/01/16 19:00 100 T-piece 5.0 09/01/16 16:00 70 09/01/16 16:00 97.8 70 20 160/98 100 09/01/16 16:00 28 09/01/16 13:55 97.5 09/01/16 13:38 Trach Collar 6.0 28 09/01/16 13:38 100 Trach Collar 6.0 28 09/01/16 13:24 106 159/80 09/01/16 12:00 79 09/01/16 12:00 28 09/01/16 12:00 97.5 79 20 159/80 100 Trach Collar 28 Intake and Output 09/01/16 09/02/16 19:00 07:00 Intake Total 1507.5 ml 1230 ml Output Total 1050 ml 450 ml Balance 457.5 ml 780 ml Intake Free Water 30 ml 200 ml IV Total 667.5 ml 440 ml Tube Feeding 750 ml 470 ml Other 60 ml 120 ml Output Urine Total 1050 ml 450 ml Laboratory Tests 09/02/16 04:00: White Blood Count 6.5, Red Blood Count 2.93L, Hemoglobin 9.0L, Hematocrit 28.5L , Mean Corpuscular Volume 97, Mean Corpuscular Hemoglobin 30.9, Mean Corpuscular Hemoglobin Concent 31.8L, Red Cell Distribution Width 17.4H, Platelet Count 50L, Mean Platelet Volume 8.2, Neutrophils (%) (Auto) , Lymphocytes (%) (Auto) , Monocytes (%) (Auto) , Eosinophils (%) (Auto) , Basophils (%) (Auto) , Prothrombin Time 14.7H, Prothromb Time International Ratio 1.4H, Activated Partial Thromboplast Time 46H, Sodium Level 147H, Potassium Level 3.9, Chloride Level 117H, Carbon Dioxide Level 22, Anion Gap 8, Blood Urea Nitrogen 49H, Creatinine 1.7H, Estimat Glomerular Filtration Rate , Glucose Level 110H, Uric Acid 6.4, Calcium Level 7.5L, Phosphorus Level 3.5, Magnesium Level 1.7, Total Bilirubin 0.9, Aspartate Amino Transf (AST/SGOT) 200H , Alanine Aminotransferase (ALT/SGPT) 72H, Alkaline Phosphatase 307H, Ammonia 80H, Pro-B-Type Natriuretic Peptide 4037H, Total Protein 7.2, Albumin 1.2L, Globulin 6.0, Albumin/Globulin Ratio 0.2L, Alpha Fetoprotein [Pending] Height (Feet): 6 Height (Inches): 0.00 Weight (Pounds): 200 EENT: other - trach to O2 Cardiovascular: normal rate Respiratory/Chest: decreased breath sounds Abdomen: distended Extremities: other - poor circulation Skin: other - leg ulcerations HUMZA RICK Sep 02, 2016 10:30
--- NOTE | 2016-09-02 11:47 | Pulmonology Progress Note ---
Assessment/Plan Problems: (1) Chronic respiratory disease (2) Acute kidney injury (3) Severe sepsis Assessment/Plan continue antibiotics check cultures tolerating feeding, jeviti 70 cc check electrolytes dvt prophlaxis renal function improving. Subjective ROS Limited/Unobtainable: No Constitutional: Reports: no symptoms HEENT: Repors: no symptoms Respiratory: Reports: no symptoms Cardiovascular: Reports: no symptoms Allergies: Coded Allergies: No Known Allergies (Unverified , 08/30/16) Objective Last 24 Hour Vital Signs Date Time Temp Pulse Resp B/P Pulse Ox O2 Delivery O2 Flow Rate FiO2 09/02/16 08:45 64 169/75 09/02/16 08:00 97.7 64 20 169/75 100 T-piece 28 09/02/16 08:00 61 09/02/16 08:00 28 09/02/16 07:39 T-piece 5.0 09/02/16 07:39 100 T-piece 5.0 09/02/16 07:38 70 16 T-piece 5.0 09/02/16 05:23 61 161/82 09/02/16 04:00 96.8 61 18 161/82 100 Trach Collar 09/02/16 04:00 28 09/02/16 03:45 59 09/02/16 01:06 T-piece 5.0 09/02/16 01:05 100 T-piece 5.0 09/02/16 00:00 65 09/02/16 00:00 96.4 61 16 153/76 100 Trach Collar 09/02/16 00:00 28 09/01/16 21:05 69 173/92 09/01/16 20:53 74 173/92 09/01/16 20:00 98.2 74 18 173/92 100 Trach Collar 09/01/16 20:00 98.2 74 18 173/92 100 09/01/16 20:00 70 09/01/16 20:00 28 09/01/16 19:00 T-piece 5.0 09/01/16 19:00 69 16 T-piece 5.0 09/01/16 19:00 100 T-piece 5.0 09/01/16 16:00 70 09/01/16 16:00 97.8 70 20 160/98 100 2/5/17 16:00 28 09/01/16 13:55 97.5 09/01/16 13:38 Trach Collar 6.0 28 09/01/16 13:38 100 Trach Collar 6.0 28 09/01/16 13:24 106 159/80 09/01/16 12:00 79 09/01/16 12:00 28 09/01/16 12:00 97.5 79 20 159/80 100 Trach Collar 28 Intake and Output 09/01/16 09/02/16 19:00 07:00 Intake Total 1507.5 ml 1230 ml Output Total 1050 ml 450 ml Balance 457.5 ml 780 ml Intake Free Water 30 ml 200 ml IV Total 667.5 ml 440 ml Tube Feeding 750 ml 470 ml Other 60 ml 120 ml Output Urine Total 1050 ml 450 ml General Appearance: WD/WN, no acute distress HEENT: anicteric Respiratory/Chest: chest wall non-tender, lungs clear Cardiovascular: normal peripheral pulses, normal rate Abdomen: normal bowel sounds, no organomegaly Extremities: no cyanosis Skin: no rash, no lesions Neurologic/Psychiatric: director of environmental services II-XII grossly normal, no motor/sensory deficits Lymphatic: no neck adenopathy Musculoskeletal: normal muscle bulk, no effusion Microbiology Date/Time Source Procedure Growth Status 08/30/16 22:00 Blood Blood Culture - Preliminary Gram Negative Jarod Resulted 08/30/16 22:00 Blood Blood Culture - Preliminary Gram Negative Jarod Resulted 08/30/16 14:15 Blood Blood Culture - Final Escherichia Coli - Esbl Complete 08/30/16 14:00 Blood Blood Culture - Final Escherichia Coli - Esbl Complete 08/31/16 04:20 Sputum Induced Gram Stain - Final Resulted 08/31/16 04:20 Sputum Culture - Preliminary Gram Negative Bacillus 1 Gram Negative Bacillus 2 Resulted 08/30/16 15:01 Nasal Nares MRSA Culture - Final NO METHICILLIN RESISTANT STAPH AUREUS... Complete 08/30/16 15:32 Urine,Clean Catch Urine Culture - Final Escherichia Coli - Esbl Complete 08/30/16 15:01 Rectum VRE Culture - Final Enterococcus Faecium - Vre Complete Laboratory Tests 09/02/16 04:00: White Blood Count 6.5, Red Blood Count 2.93L, Hemoglobin 9.0L, Hematocrit 28.5L , Mean Corpuscular Volume 97, Mean Corpuscular Hemoglobin 30.9, Mean Corpuscular Hemoglobin Concent 31.8L, Red Cell Distribution Width 17.4H, Platelet Count 50L, Mean Platelet Volume 8.2, Neutrophils (%) (Auto) , Lymphocytes (%) (Auto) , Monocytes (%) (Auto) , Eosinophils (%) (Auto) , Basophils (%) (Auto) , Prothrombin Time 14.7H, Prothromb Time International Ratio 1.4H, Activated Partial Thromboplast Time 46H, Sodium Level 147H, Potassium Level 3.9, Chloride Level 117H, Carbon Dioxide Level 22, Anion Gap 8, Blood Urea Nitrogen 49H, Creatinine 1.7H, Estimat Glomerular Filtration Rate , Glucose Level 110H, Uric Acid 6.4, Calcium Level 7.5L, Phosphorus Level 3.5, Magnesium Level 1.7, Total Bilirubin 0.9, Aspartate Amino Transf (AST/SGOT) 200H , Alanine Aminotransferase (ALT/SGPT) 72H, Alkaline Phosphatase 307H, Ammonia 80H, Pro-B-Type Natriuretic Peptide 4037H, Total Protein 7.2, Albumin 1.2L, Globulin 6.0, Albumin/Globulin Ratio 0.2L, Alpha Fetoprotein [Pending] Current Medications Medications (Trade) Dose Ordered Sig/Darren Route PRN Reason Start Time Stop Time Status Last Admin Dose Admin Acetaminophen (Tylenol) 650 mg Q4H PRN RECTAL T>100.5 08/30/16 18:15 09/29/16 18:14 Albuterol/ Ipratropium (DuoNeb 0.5-3(2.5)mg/3ml) 3 ml Q4H PRN HHN Shortness of Breath 08/30/16 18:15 09/04/16 18:14 Dextrose (Dextrose 50%) STAT PRN IV Hypoglycemia 08/30/16 18:15 09/29/16 18:14 Ertapenem/Sodium Chloride (INVanz/Sodium Chloride) 55 ml @ 110 mls/hr Q24H IVPB 09/01/16 15:00 09/06/16 14:59 09/01/16 15:09 Lactulose (Cephulac) 30 gm FOUR TIMES A DAY ORAL 08/30/16 21:00 09/29/16 20:59 09/02/16 08:28 Levothyroxine Sodium (Synthroid) 50 mcg DAILY IV 09/01/16 11:45 10/01/16 11:44 09/02/16 08:45 Metoclopramide HCl (Reglan) 10 mg Q6H PRN IVP Nausea & Vomiting 08/30/16 18:15 09/29/16 18:14 Metoprolol Tartrate 50 mg 50 mg EVERY 12 HOURS GT 09/01/16 21:00 10/01/16 20:59 09/02/16 08:45 Morphine Sulfate (Morphine Sulfate) 2 mg Q4H PRN IVP PAIN 4-10 08/30/16 18:15 09/06/16 18:14 09/02/16 00:12 Multivitamins (Multivitamin Hexavitamin) 5 ml DAILY GT 08/31/16 09:00 09/30/16 08:59 09/02/16 08:28 Ondansetron HCl (Zofran) 4 mg Q6H PRN IVP Nausea & Vomiting 08/30/16 18:15 09/29/16 18:14 Polyethylene Glycol (Miralax) 17 gm DAILYPRN PRN ORAL Constipation 08/30/16 18:15 09/29/16 18:14 Propranolol HCl (Inderal) 10 mg Q8HR ORAL 09/01/16 14:00 10/01/16 13:59 09/02/16 05:23 Ranitidine HCl (Zantac) 150 mg QHS ORAL 08/30/16 21:00 09/29/16 20:59 09/01/16 20:59 Rifaximin (Xifaxan) 550 mg EVERY 12 HOURS ORAL 09/01/16 09:00 09/08/16 08:59 09/02/16 08:28 Vitamin A/Vitamin D (A & D Oint) 1 applic EVERY 12 HOURS TOPIC 08/30/16 21:00 09/29/16 20:59 09/02/16 08:28 MARC RUTLEDGE Sep 02, 2016 11:47
[2016-09-02 12:00] VITALS: BP 162/87
--- NOTE | 2016-09-02 12:52 | GI Progress Note ---
Assessment/Plan Problems: (1) Anemia ICD Codes: D64.9 - Anemia, unspecified SNOMED: 387772307 (2) Esophageal varices ICD Codes: I85.00 - Esophageal varices without bleeding SNOMED: 29698250 (3) Cirrhosis ICD Codes: K74.60 - Unspecified cirrhosis of liver SNOMED: 81712930 (4) Portal hypertension ICD Codes: K76.6 - Portal hypertension SNOMED: 49746428 (5) Severe sepsis ICD Codes: A41.9 - Sepsis, unspecified organism; R65.20 - Severe sepsis without septic shock SNOMED: 14590996 Status: unchanged Status Narrative Discussed with Dr. Grace. Assessment/Plan elevated ammonia >> Xifaxan + lactulose Xifaxan + lactulose abd U/S reviewed >> Liver disease/cirrhosis with stigmata of portal hypertension including splenomegaly, ascites, portosystemic varices, hepatofugal portal vein flow. portal HTN >> propranolol TID GTFs hep panel pending ppi + H2 fu labs Subjective Subjective limited Objective Last 24 Hour Vital Signs Date Time Temp Pulse Resp B/P Pulse Ox O2 Delivery O2 Flow Rate FiO2 09/02/16 12:00 97.5 61 20 162/87 100 T-piece 28 09/02/16 12:00 28 09/02/16 08:45 64 169/75 09/02/16 08:00 97.7 64 20 169/75 100 T-piece 28 09/02/16 08:00 61 09/02/16 08:00 28 09/02/16 07:39 T-piece 5.0 28 09/02/16 07:39 100 T-piece 5.0 09/02/16 07:38 70 16 T-piece 5.0 09/02/16 05:23 61 161/82 09/02/16 04:00 96.8 61 18 161/82 100 Trach Collar 09/02/16 04:00 28 09/02/16 03:45 59 09/02/16 01:06 T-piece 5.0 09/02/16 01:05 100 T-piece 5.0 28 09/02/16 00:00 65 09/02/16 00:00 96.4 61 16 153/76 100 Trach Collar 09/02/16 00:00 28 09/01/16 21:05 69 173/92 09/01/16 20:53 74 173/92 09/01/16 20:00 98.2 74 18 173/92 100 Trach Collar 28 09/01/16 20:00 98.2 74 18 173/92 100 09/01/16 20:00 70 09/01/16 20:00 28 09/01/16 19:00 T-piece 5.0 28 09/01/16 19:00 69 16 T-piece 5.0 28 09/01/16 19:00 100 T-piece 5.0 28 09/01/16 16:00 70 09/01/16 16:00 97.8 70 20 160/98 100 09/01/16 16:00 28 09/01/16 13:55 97.5 09/01/16 13:38 Trach Collar 6.0 28 09/01/16 13:38 100 Trach Collar 6.0 28 09/01/16 13:24 106 159/80 Intake and Output 09/01/16 09/02/16 19:00 07:00 Intake Total 1507.5 ml 1230 ml Output Total 1050 ml 450 ml Balance 457.5 ml 780 ml Intake Free Water 30 ml 200 ml IV Total 667.5 ml 440 ml Tube Feeding 750 ml 470 ml Other 60 ml 120 ml Output Urine Total 1050 ml 450 ml Laboratory Tests Test 09/02/16 04:00 White Blood Count 6.5 K/UL (4.8-10.8) Red Blood Count 2.93 M/UL (4.70-6.10) L Hemoglobin 9.0 G/DL (14.2-18.0) L Hematocrit 28.5 % (42.0-52.0) L Mean Corpuscular Volume 97 FL (80-99) Mean Corpuscular Hemoglobin 30.9 PG (27.0-31.0) Mean Corpuscular Hemoglobin Concent 31.8 G/DL (32.0-36.0) L Red Cell Distribution Width 17.4 % (11.6-14.8) H Platelet Count 50 K/UL (150-450) L Mean Platelet Volume 8.2 FL (6.5-10.1) Neutrophils (%) (Auto) % (45.0-75.0) Lymphocytes (%) (Auto) % (20.0-45.0) Monocytes (%) (Auto) % (1.0-10.0) Eosinophils (%) (Auto) % (0.0-3.0) Basophils (%) (Auto) % (0.0-2.0) Prothrombin Time 14.7 SEC (9.30-11.50) H Prothromb Time International Ratio 1.4 (0.9-1.1) H Activated Partial Thromboplast Time 46 SEC (23-33) H Sodium Level 147 mEQ/L (135-145) H Potassium Level 3.9 mEQ/L (3.4-4.9) Chloride Level 117 mEQ/L (98-107) H Carbon Dioxide Level 22 mEQ/L (20-30) Anion Gap 8 (5-15) Blood Urea Nitrogen 49 mg/dL (7-23) H Creatinine 1.7 mg/dL (0.7-1.2) H Estimat Glomerular Filtration Rate mL/min (>60) Glucose Level 110 mg/dL (74-106) H Uric Acid 6.4 mg/dL (3.0-7.5) Calcium Level 7.5 mg/dL (8.6-10.2) L Phosphorus Level 3.5 mg/dL (2.5-4.8) Magnesium Level 1.7 mg/dL (1.7-2.5) Total Bilirubin 0.9 mg/dL (0.0-1.2) Aspartate Amino Transf (AST/SGOT) 200 U/L (5-40) H Alanine Aminotransferase (ALT/SGPT) 72 U/L (3-41) H Alkaline Phosphatase 307 U/L (40-129) H Ammonia 80 umol/L (16-60) H Pro-B-Type Natriuretic Peptide 4037 pg/mL (0-125) H Total Protein 7.2 g/dL (6.6-8.7) Albumin 1.2 g/dL (3.5-5.2) L Globulin 6.0 g/dL Albumin/Globulin Ratio 0.2 (1.0-2.7) L Alpha Fetoprotein Pending Height (Feet): 6 Height (Inches): 0.00 Weight (Pounds): 200 General Appearance: no apparent distress Cardiovascular: normal rate Respiratory/Chest: other - mech vent Abdominal Exam: GT site - c/d/i Objective Procedure: US ABD Complete Indication:Abdominal pain and elevated liver function tests Impression: Liver disease/cirrhosis with stigmata of portal hypertension including splenomegaly, ascites, portosystemic varices, hepatofugal portal vein flow. Gallstone Suspected small nonobstructive stone left kidney Snow Pyle N.P. Sep 02, 2016 12:52
--- NOTE | 2016-09-02 13:48 | Diagnostic Imaging Report ---
Indication: SOB Technique: One view of the chest Comparison: 08/30/2016 Findings: Left basilar atelectasis versus scarring is again demonstrated. Tracheostomy, right subclavian central venous catheter remain. There is now some blunting of left costophrenic angle, may reflects a small amount of pleural fluid Impression: New finding of blunting of left costophrenic angle, may reflect small left pleural effusion Other stable findings as described
--- NOTE | 2016-09-02 14:59 | Infectious Diseases Prog Note ---
Assessment/Plan Assessment/Plan ASSESSMENT: 71 y/o male with: GNR bacteremia 03/04, m/l urinary source - C&S, repeat BCx pending ESBL(+) E.coli UTI US: Suspected small nonobstructive stone left kidney Severe sepsis - resolved lactic acidosis Afebrile without leukocytosis Acute encephalopathy, m/l septic, hepatic CT Head: pending elevated NH4 Elevated LFTs / cirrhosis - improved, hepatitis panel pending US: Liver disease/cirrhosis with stigmata of portal hypertension, Gallstone ARF - improved Chronic VDRF SP trach, PEG Thrombocytopenia h/o esophageal [place] resident NKDA Full Code PLAN: continue invanz d# 2 / ( 09/01 SP IV vancomycin, Cefepime d# 3 ) f/u cultures f/u CT head Monitor CBC, temperatures Monitor CMP Monitor CXR Hepatitis panel :P vent support, trach care, aspiration precautions Subjective Allergies: Coded Allergies: No Known Allergies (Unverified , 08/30/16) Subjective remains afebrile on vent BCx GNR, UCx ESBL Objective Vital Signs Last 24 Hour Vital Signs Date Time Temp Pulse Resp B/P Pulse Ox O2 Delivery O2 Flow Rate FiO2 09/02/16 13:01 61 162/87 09/02/16 12:00 97.5 61 20 162/87 100 T-piece 28 09/02/16 12:00 28 09/02/16 12:00 55 09/02/16 08:45 64 169/75 09/02/16 08:00 97.7 64 20 169/75 100 T-piece 28 09/02/16 08:00 61 09/02/16 08:00 28 09/02/16 07:39 T-piece 5.0 28 09/02/16 07:39 100 T-piece 5.0 28 09/02/16 07:38 70 16 T-piece 5.0 28 09/02/16 05:23 61 161/82 09/02/16 04:00 96.8 61 18 161/82 100 Trach Collar 09/02/16 04:00 28 09/02/16 03:45 59 09/02/16 01:06 T-piece 5.0 28 09/02/16 01:05 100 T-piece 5.0 28 09/02/16 00:00 65 09/02/16 00:00 96.4 61 16 153/76 100 Trach Collar 09/02/16 00:00 28 09/01/16 21:05 69 173/92 09/01/16 20:53 74 173/92 09/01/16 20:00 98.2 74 18 173/92 100 Trach Collar 28 09/01/16 20:00 98.2 74 18 173/92 100 09/01/16 20:00 70 09/01/16 20:00 28 09/01/16 19:00 T-piece 5.0 28 09/01/16 19:00 69 16 T-piece 5.0 28 09/01/16 19:00 100 T-piece 5.0 28 09/01/16 16:00 70 09/01/16 16:00 97.8 70 20 160/98 100 09/01/16 16:00 28 Height (Feet): 6 Height (Inches): 0.00 Weight (Pounds): 200 General Appearance: no acute distress HEENT: status post trach Respiratory/Chest: decreased breath sounds Cardiovascular: normal rate, regular rhythm Abdomen: normal bowel sounds, soft, non tender, non distended Microbiology Date/Time Source Procedure Growth Status 08/30/16 22:00 Blood Blood Culture - Preliminary Gram Negative Jarod Resulted 08/30/16 22:00 Blood Blood Culture - Preliminary Gram Negative Jarod Resulted 08/31/16 04:20 Sputum Induced Gram Stain - Final Resulted 08/31/16 04:20 Sputum Culture - Preliminary Gram Negative Bacillus 1 Gram Negative Bacillus 2 Resulted 08/30/16 15:01 Nasal Nares MRSA Culture - Final NO METHICILLIN RESISTANT STAPH AUREUS... Complete 08/30/16 15:32 Urine,Clean Catch Urine Culture - Final Escherichia Coli - Esbl Complete 08/30/16 15:01 Rectum VRE Culture - Final Enterococcus Faecium - Vre Complete Laboratory Tests Test 09/02/16 04:00 White Blood Count 6.5 K/UL (4.8-10.8) Red Blood Count 2.93 M/UL (4.70-6.10) L Hemoglobin 9.0 G/DL (14.2-18.0) L Hematocrit 28.5 % (42.0-52.0) L Mean Corpuscular Volume 97 FL (80-99) Mean Corpuscular Hemoglobin 30.9 PG (27.0-31.0) Mean Corpuscular Hemoglobin Concent 31.8 G/DL (32.0-36.0) L Red Cell Distribution Width 17.4 % (11.6-14.8) H Platelet Count 50 K/UL (150-450) L Mean Platelet Volume 8.2 FL (6.5-10.1) Neutrophils (%) (Auto) % (45.0-75.0) Lymphocytes (%) (Auto) % (20.0-45.0) Monocytes (%) (Auto) % (1.0-10.0) Eosinophils (%) (Auto) % (0.0-3.0) Basophils (%) (Auto) % (0.0-2.0) Prothrombin Time 14.7 SEC (9.30-11.50) H Prothromb Time International Ratio 1.4 (0.9-1.1) H Activated Partial Thromboplast Time 46 SEC (23-33) H Sodium Level 147 mEQ/L (135-145) H Potassium Level 3.9 mEQ/L (3.4-4.9) Chloride Level 117 mEQ/L (98-107) H Carbon Dioxide Level 22 mEQ/L (20-30) Anion Gap 8 (5-15) Blood Urea Nitrogen 49 mg/dL (7-23) H Creatinine 1.7 mg/dL (0.7-1.2) H Estimat Glomerular Filtration Rate mL/min (>60) Glucose Level 110 mg/dL (74-106) H Uric Acid 6.4 mg/dL (3.0-7.5) Calcium Level 7.5 mg/dL (8.6-10.2) L Phosphorus Level 3.5 mg/dL (2.5-4.8) Magnesium Level 1.7 mg/dL (1.7-2.5) Total Bilirubin 0.9 mg/dL (0.0-1.2) Aspartate Amino Transf (AST/SGOT) 200 U/L (5-40) H Alanine Aminotransferase (ALT/SGPT) 72 U/L (3-41) H Alkaline Phosphatase 307 U/L (40-129) H Ammonia 80 umol/L (16-60) H Pro-B-Type Natriuretic Peptide 4037 pg/mL (0-125) H Total Protein 7.2 g/dL (6.6-8.7) Albumin 1.2 g/dL (3.5-5.2) L Globulin 6.0 g/dL Albumin/Globulin Ratio 0.2 (1.0-2.7) L Alpha Fetoprotein Pending Current Medications Medications (Trade) Dose Ordered Sig/Darren Route PRN Reason Start Time Stop Time Status Last Admin Dose Admin Acetaminophen (Tylenol) 650 mg Q4H PRN RECTAL T>100.5 08/30/16 18:15 09/29/16 18:14 Albuterol/ Ipratropium (DuoNeb 0.5-3(2.5)mg/3ml) 3 ml Q4H PRN HHN Shortness of Breath 08/30/16 18:15 09/04/16 18:14 Dextrose (Dextrose 50%) STAT PRN IV Hypoglycemia 08/30/16 18:15 09/29/16 18:14 Ertapenem/Sodium Chloride (INVanz/Sodium Chloride) 55 ml @ 110 mls/hr Q24H IVPB 09/01/16 15:00 09/06/16 14:59 09/01/16 15:09 Lactulose (Cephulac) 30 gm FOUR TIMES A DAY ORAL 08/30/16 21:00 09/29/16 20:59 09/02/16 13:01 Levothyroxine Sodium (Synthroid) 50 mcg DAILY IV 09/01/16 11:45 10/01/16 11:44 09/02/16 08:45 Metoclopramide HCl (Reglan) 10 mg Q6H PRN IVP Nausea & Vomiting 08/30/16 18:15 09/29/16 18:14 Metoprolol Tartrate 50 mg 50 mg EVERY 12 HOURS GT 09/01/16 21:00 10/01/16 20:59 09/02/16 08:45 Morphine Sulfate (Morphine Sulfate) 2 mg Q4H PRN IVP PAIN 4-10 08/30/16 18:15 09/06/16 18:14 09/02/16 00:12 Multivitamins (Multivitamin Hexavitamin) 5 ml DAILY GT 08/31/16 09:00 09/30/16 08:59 09/02/16 08:28 Ondansetron HCl (Zofran) 4 mg Q6H PRN IVP Nausea & Vomiting 08/30/16 18:15 09/29/16 18:14 Pantoprazole (Protonix) 40 mg DAILY IVP 09/03/16 09:00 10/03/16 08:59 Polyethylene Glycol (Miralax) 17 gm DAILYPRN PRN ORAL Constipation 08/30/16 18:15 09/29/16 18:14 Propranolol HCl (Inderal) 10 mg Q8HR ORAL 09/01/16 14:00 10/01/16 13:59 09/02/16 13:01 Ranitidine HCl (Zantac) 150 mg QHS ORAL 08/30/16 21:00 09/29/16 20:59 09/01/16 20:59 Rifaximin (Xifaxan) 550 mg EVERY 12 HOURS ORAL 09/01/16 09:00 09/08/16 08:59 09/02/16 08:28 Vitamin A/Vitamin D (A & D Oint) 1 applic EVERY 12 HOURS TOPIC 08/30/16 21:00 09/29/16 20:59 09/02/16 08:28 TIAN PERERA Sep 02, 2016 14:58
[2016-09-02 16:00] VITALS: BP 158/84
[2016-09-02] MEDS: Ertapenem 1 GM in NS 55 ML IVPB SCH (16:04)
[2016-09-02 20:00] VITALS: BP 172/75
[2016-09-03 00:58] VITALS: BP 152/69
[2016-09-03 04:00] VITALS: BP 129/71
[2016-09-03] MEDS: Propranolol 10mg tab ORAL SCH ×3 (05:43→21:54)
[2016-09-03 05:55] LABS: MEAN CORPUSCULAR HEMOGLOBIN 30.9 PG (27.0-31.0); MEAN CORPUSCULAR HGB CONC 31.5 G/DL (32.0-36.0); MEAN CORPUSCULAR VOLUME 98 FL (80-99); MEAN PLATELET VOLUME 8.4 FL (6.5-10.1); PLATELET COUNT 51 K/UL (150-450); RED BLOOD COUNT 3.08 M/UL (4.70-6.10); RED CELL DISTRIBUTION WIDTH 17.8 % (11.6-14.8); WHITE BLOOD COUNT 6.9 K/UL (4.8-10.8)
[2016-09-03 05:59] LABS: INR 1.4 (0.9-1.1); PROTHROMBIN TIME 14.2 SEC (9.30-11.50)
[2016-09-03 06:28] LABS: ALANINE AMINOTRANSFERASE 86 U/L (3-41); ALBUMIN/GLOBULIN RATIO 0.1 (1.0-2.7); ANION GAP 10 (5-15); ASPARTATE AMINO TRANSFERASE 214 U/L (5-40); CALCIUM 7.7 mg/dL (8.6-10.2); CARBON DIOXIDE 23 mEQ/L (20-30); CHLORIDE 118 mEQ/L (98-107); CREATININE 1.3 mg/dL (0.7-1.2); HEMOLYSIS 2; MAGNESIUM 1.6 mg/dL (1.7-2.5); PHOSPHORUS 3.1 mg/dL (2.5-4.8); POTASSIUM 3.6 mEQ/L (3.4-4.9); SODIUM 151 mEQ/L (135-145); TOTAL PROTEIN 7.6 g/dL (6.6-8.7)
[2016-09-03 06:58] LABS: BILIRUBIN,DIRECT 0.5 mg/dL (0.1-0.3)
[2016-09-03 07:26] LABS: BAND NEUTROPHILS % (MANUAL) 0 % (0-8); BASOPHILS % (MANUAL) 0 % (0-2); EOSINOPHILS % (MANUAL) 4 % (0-3); LYMPHOCYTES % (MANUAL) 19 % (20-45); NEUTROPHILS % (MANUAL) 70 % (45-75); PLATELET ESTIMATE DECREASED; PLATELET MORPHOLOGY NORMAL; TOTAL CELLS COUNTED 100
[2016-09-03 07:28] LABS: ANISOCYTOSIS 1+
[2016-09-03 07:29] LABS: HYPOCHROMASIA 1+
[2016-09-03 08:00] VITALS: BP 165/77
[2016-09-03] MEDS: Metoprolol 50mg tab GT SCH ×2 (09:00→20:14)
[2016-09-03] MEDS: Vitamin A&D Oint 2oz Tube TOPIC SCH ×2 (09:00→20:16)
[2016-09-03] MEDS: Multivitamin 5ml Liquid GT SCH (09:00)
[2016-09-03] MEDS: Lactulose 20gm/30ml UDC ORAL SCH ×4 (09:59→20:14)
[2016-09-03] MEDS: Pantoprazole Inj IVP SCH (09:59)
[2016-09-03] MEDS: Rifaximin 550mg tab ORAL SCH ×2 (10:00→20:14)
--- NOTE | 2016-09-03 10:37 | Pulmonology Progress Note ---
Assessment/Plan Problems: (1) Bacteremia (2) Chronic respiratory disease (3) Acute kidney injury (4) Severe sepsis (5) Cirrhosis Assessment/Plan continue antibiotics check cultures tolerating feeding, jeviti 70 cc check electrolytes dvt prophlaxis renal function improving. continue antibiotics invanz d# 3 / Subjective ROS Limited/Unobtainable: Yes Interval Events: comfortable Constitutional: Reports: no symptoms Allergies: Coded Allergies: No Known Allergies (Unverified , 08/30/16) Objective Last 24 Hour Vital Signs Date Time Temp Pulse Resp B/P Pulse Ox O2 Delivery O2 Flow Rate FiO2 09/03/16 09:00 62 165/77 09/03/16 08:00 97.5 57 22 165/77 100 Trach Collar 09/03/16 07:11 T-piece 5.0 09/03/16 07:11 100 T-piece 5.0 09/03/16 07:11 57 16 T-piece 5.0 09/03/16 05:43 65 129/75 09/03/16 04:00 28 09/03/16 04:00 64 09/03/16 04:00 97.9 60 20 129/71 100 T-piece 09/03/16 00:58 97.7 59 20 152/69 100 T-piece 09/03/16 00:00 28 09/03/16 00:00 62 09/02/16 21:56 84 146/72 09/02/16 20:44 88 166/75 09/02/16 20:00 54 09/02/16 20:00 28 09/02/16 20:00 97.5 64 24 172/75 100 T-piece 09/02/16 19:03 100 T-piece 5.0 09/02/16 19:03 T-piece 5.0 09/02/16 19:02 72 16 T-piece 5.0 09/02/16 16:00 28 09/02/16 16:00 97.5 62 20 158/84 100 T-piece 09/02/16 16:00 63 09/02/16 15:12 100 T-piece 5.0 09/02/16 13:01 61 162/87 09/02/16 12:00 97.5 61 20 162/87 100 T-piece 28 09/02/16 12:00 28 09/02/16 12:00 55 Intake and Output 09/02/16 09/03/16 19:00 07:00 Intake Total 1180 ml 660 ml Output Total 1275 ml 2950 ml Balance -95 ml -2290 ml Intake Free Water 130 ml 100 ml IV Total 110 ml Tube Feeding 840 ml 560 ml Other 100 ml Output Urine Total 1275 ml 2950 ml # Bowel Movements 1 1 General Appearance: WD/WN HEENT: normocephalic, status post trach Respiratory/Chest: chest wall non-tender, lungs clear Cardiovascular: normal peripheral pulses, normal rate Abdomen: normal bowel sounds, no organomegaly Extremities: no cyanosis Skin: no rash, no ulcers Microbiology Date/Time Source Procedure Growth Status 09/02/16 04:05 Blood Blood Culture - Preliminary NO GROWTH AFTER 24 HOURS Resulted 09/02/16 04:00 Blood Blood Culture - Preliminary NO GROWTH AFTER 24 HOURS Resulted Laboratory Tests 09/03/16 04:00: White Blood Count 6.9, Red Blood Count 3.08L, Hemoglobin 9.5L, Hematocrit 30.3L , Mean Corpuscular Volume 98, Mean Corpuscular Hemoglobin 30.9, Mean Corpuscular Hemoglobin Concent 31.5L, Red Cell Distribution Width 17.8H, Platelet Count 51L, Mean Platelet Volume 8.4, Neutrophils (%) (Auto) , Lymphocytes (%) (Auto) , Monocytes (%) (Auto) , Eosinophils (%) (Auto) , Basophils (%) (Auto) , Differential Total Cells Counted 100, Neutrophils % ( Manual) 70, Lymphocytes % (Manual) 19L, Monocytes % (Manual) 7, Eosinophils % ( Manual) 4H, Basophils % (Manual) 0, Band Neutrophils 0, Platelet Estimate DecreasedL, Platelet Morphology Normal, Hypochromasia 1+, Anisocytosis 1+, Prothrombin Time 14.2H, Prothromb Time International Ratio 1.4H, Activated Partial Thromboplast Time 46H, Sodium Level 151H, Potassium Level 3.6, Chloride Level 118H, Carbon Dioxide Level 23, Anion Gap 10, Blood Urea Nitrogen 36H, Creatinine 1.3H, Estimat Glomerular Filtration Rate , Glucose Level 111H, Calcium Level 7.7L, Phosphorus Level 3.1, Magnesium Level 1.6L, Total Bilirubin 1.2, Direct Bilirubin 0.5H, Aspartate Amino Transf (AST/SGOT) 214H, Alanine Aminotransferase (ALT/SGPT) 86H, Alkaline Phosphatase 387H, Total Protein 7.6, Albumin 1.2L, Globulin 6.4, Albumin/Globulin Ratio 0.1L Current Medications Medications (Trade) Dose Ordered Sig/Darren Route PRN Reason Start Time Stop Time Status Last Admin Dose Admin Acetaminophen (Tylenol) 650 mg Q4H PRN RECTAL T>100.5 08/30/16 18:15 09/29/16 18:14 Albuterol/ Ipratropium (DuoNeb 0.5-3(2.5)mg/3ml) 3 ml Q4H PRN HHN Shortness of Breath 08/30/16 18:15 09/04/16 18:14 Dextrose (Dextrose 50%) STAT PRN IV Hypoglycemia 08/30/16 18:15 09/29/16 18:14 Ertapenem/Sodium Chloride (INVanz/Sodium Chloride) 55 ml @ 110 mls/hr Q24H IVPB 09/01/16 15:00 09/06/16 14:59 09/02/16 16:04 Lactulose (Cephulac) 30 gm FOUR TIMES A DAY ORAL 08/30/16 21:00 09/29/16 20:59 09/03/16 09:59 Levothyroxine Sodium (Synthroid) 50 mcg DAILY IV 09/01/16 11:45 10/01/16 11:44 09/03/16 10:08 Metoclopramide HCl (Reglan) 10 mg Q6H PRN IVP Nausea & Vomiting 08/30/16 18:15 09/29/16 18:14 Metoprolol Tartrate 50 mg 50 mg EVERY 12 HOURS GT 09/01/16 21:00 10/01/16 20:59 09/03/16 09:00 Morphine Sulfate (Morphine Sulfate) 2 mg Q4H PRN IVP PAIN 4-10 08/30/16 18:15 09/06/16 18:14 09/02/16 00:12 Multivitamins (Multivitamin Hexavitamin) 5 ml DAILY GT 08/31/16 09:00 09/30/16 08:59 09/03/16 09:00 Ondansetron HCl (Zofran) 4 mg Q6H PRN IVP Nausea & Vomiting 08/30/16 18:15 09/29/16 18:14 Pantoprazole (Protonix) 40 mg DAILY IVP 09/03/16 09:00 10/03/16 08:59 09/03/16 09:59 Polyethylene Glycol (Miralax) 17 gm DAILYPRN PRN ORAL Constipation 08/30/16 18:15 09/29/16 18:14 Propranolol HCl (Inderal) 10 mg Q8HR ORAL 09/01/16 14:00 10/01/16 13:59 09/03/16 05:43 Ranitidine HCl (Zantac) 150 mg QHS ORAL 08/30/16 21:00 09/29/16 20:59 09/02/16 20:45 Rifaximin (Xifaxan) 550 mg EVERY 12 HOURS ORAL 09/01/16 09:00 09/08/16 08:59 09/03/16 10:00 Vitamin A/Vitamin D (A & D Oint) 1 applic EVERY 12 HOURS TOPIC 08/30/16 21:00 09/29/16 20:59 09/03/16 09:00 MARC RUTLEDGE Sep 03, 2016 10:37
[2016-09-03 12:00] VITALS: BP 157/88
--- NOTE | 2016-09-03 12:39 | Diagnostic Imaging Report ---
Indication: DYSPNEA Technique: One view of the chest Comparison: 09/02/2016 Findings: Tracheostomy, right subclavian central venous catheter are again demonstrated. There is increased blunting of left costophrenic sulcus, likely reflecting increased left pleural fluid. Lungs, right pleural space remain clear Impression: Suspect increasing left pleural effusion Other stable findings as described
--- NOTE | 2016-09-03 12:40 | GI Progress Note ---
Assessment/Plan Problems: (1) Anemia ICD Codes: D64.9 - Anemia, unspecified SNOMED: 409353030 (2) Esophageal varices ICD Codes: I85.00 - Esophageal varices without bleeding SNOMED: 42606836 (3) Cirrhosis ICD Codes: K74.60 - Unspecified cirrhosis of liver SNOMED: 66219276 (4) Portal hypertension ICD Codes: K76.6 - Portal hypertension SNOMED: 56713485 (5) Severe sepsis ICD Codes: A41.9 - Sepsis, unspecified organism; R65.20 - Severe sepsis without septic shock SNOMED: 47533732 Status: unchanged Status Narrative Discussed with Dr. Grace Assessment/Plan elevated ammonia >> Xifaxan + lactulose abd U/S reviewed >> Liver disease/cirrhosis with stigmata of portal hypertension including splenomegaly, ascites, portosystemic varices, hepatofugal portal vein flow. portal HTN >> propranolol TID GTFs hep panel pending ppi + H2 fu labs Subjective Subjective limited Objective Last 24 Hour Vital Signs Date Time Temp Pulse Resp B/P Pulse Ox O2 Delivery O2 Flow Rate FiO2 09/03/16 12:00 28 09/03/16 09:00 62 165/77 09/03/16 08:00 97.5 57 22 165/77 100 Trach Collar 28 09/03/16 08:00 28 09/03/16 08:00 63 09/03/16 07:11 T-piece 5.0 09/03/16 07:11 100 T-piece 5.0 28 09/03/16 07:11 57 16 T-piece 5.0 09/03/16 05:43 65 129/75 09/03/16 04:00 28 09/03/16 04:00 64 09/03/16 04:00 97.9 60 20 129/71 100 T-piece 09/03/16 00:58 97.7 59 20 152/69 100 T-piece 09/03/16 00:00 28 09/03/16 00:00 62 09/02/16 21:56 84 146/72 09/02/16 20:44 88 166/75 09/02/16 20:00 54 09/02/16 20:00 28 09/02/16 20:00 97.5 64 24 172/75 100 T-piece 09/02/16 19:03 100 T-piece 5.0 28 09/02/16 19:03 T-piece 5.0 28 09/02/16 19:02 72 16 T-piece 5.0 28 09/02/16 16:00 28 09/02/16 16:00 97.5 62 20 158/84 100 T-piece 28 09/02/16 16:00 63 09/02/16 15:12 100 T-piece 5.0 28 09/02/16 13:01 61 162/87 Intake and Output 09/02/16 09/03/16 19:00 07:00 Intake Total 1180 ml 660 ml Output Total 1275 ml 2950 ml Balance -95 ml -2290 ml Intake Free Water 130 ml 100 ml IV Total 110 ml Tube Feeding 840 ml 560 ml Other 100 ml Output Urine Total 1275 ml 2950 ml # Bowel Movements 1 1 Laboratory Tests Test 09/03/16 04:00 White Blood Count 6.9 K/UL (4.8-10.8) Red Blood Count 3.08 M/UL (4.70-6.10) L Hemoglobin 9.5 G/DL (14.2-18.0) L Hematocrit 30.3 % (42.0-52.0) L Mean Corpuscular Volume 98 FL (80-99) Mean Corpuscular Hemoglobin 30.9 PG (27.0-31.0) Mean Corpuscular Hemoglobin Concent 31.5 G/DL (32.0-36.0) L Red Cell Distribution Width 17.8 % (11.6-14.8) H Platelet Count 51 K/UL (150-450) L Mean Platelet Volume 8.4 FL (6.5-10.1) Neutrophils (%) (Auto) % (45.0-75.0) Lymphocytes (%) (Auto) % (20.0-45.0) Monocytes (%) (Auto) % (1.0-10.0) Eosinophils (%) (Auto) % (0.0-3.0) Basophils (%) (Auto) % (0.0-2.0) Differential Total Cells Counted 100 Neutrophils % (Manual) 70 % (45-75) Lymphocytes % (Manual) 19 % (20-45) L Monocytes % (Manual) 7 % (1-10) Eosinophils % (Manual) 4 % (0-3) H Basophils % (Manual) 0 % (0-2) Band Neutrophils 0 % (0-8) Platelet Estimate Decreased L Platelet Morphology Normal Hypochromasia 1+ Anisocytosis 1+ Prothrombin Time 14.2 SEC (9.30-11.50) H Prothromb Time International Ratio 1.4 (0.9-1.1) H Activated Partial Thromboplast Time 46 SEC (23-33) H Sodium Level 151 mEQ/L (135-145) H Potassium Level 3.6 mEQ/L (3.4-4.9) Chloride Level 118 mEQ/L (98-107) H Carbon Dioxide Level 23 mEQ/L (20-30) Anion Gap 10 (5-15) Blood Urea Nitrogen 36 mg/dL (7-23) H Creatinine 1.3 mg/dL (0.7-1.2) H Estimat Glomerular Filtration Rate mL/min (>60) Glucose Level 111 mg/dL (74-106) H Calcium Level 7.7 mg/dL (8.6-10.2) L Phosphorus Level 3.1 mg/dL (2.5-4.8) Magnesium Level 1.6 mg/dL (1.7-2.5) L Total Bilirubin 1.2 mg/dL (0.0-1.2) Direct Bilirubin 0.5 mg/dL (0.1-0.3) H Aspartate Amino Transf (AST/SGOT) 214 U/L (5-40) H Alanine Aminotransferase (ALT/SGPT) 86 U/L (3-41) H Alkaline Phosphatase 387 U/L (40-129) H Total Protein 7.6 g/dL (6.6-8.7) Albumin 1.2 g/dL (3.5-5.2) L Globulin 6.4 g/dL Albumin/Globulin Ratio 0.1 (1.0-2.7) L Height (Feet): 6 Height (Inches): 0.00 Weight (Pounds): 200 General Appearance: no apparent distress, alert Cardiovascular: normal rate Respiratory/Chest: no respiratory distress, other - trached Abdominal Exam: GT site - c/d/i Objective Procedure: US ABD Complete Indication:Abdominal pain and elevated liver function tests Impression: Liver disease/cirrhosis with stigmata of portal hypertension including splenomegaly, ascites, portosystemic varices, hepatofugal portal vein flow. Gallstone Suspected small nonobstructive stone left kidney Snow Pyle N.P. Sep 03, 2016 12:40
--- NOTE | 2016-09-03 13:24 | General Progress Note ---
Assessment/Plan Status: stable - from renal stand Assessment/Plan Status: acute renal failure - improving acute hepatic encephalopathy tracheostomy status & acute on chronic respiratory failure sepsis with bacteremia / UTI esophageal CA cirrhosis & portal hypertension & ascites & thrombocytopenia , severe hypoalbuminemia R foot wound dysphagia, G tube Plan: D5 Bollous Antibiotics- Avoid Nephrotoxics- Watch for Sxs of volume overload Monitor renal parameters Mag supplement Subjective ROS Limited/Unobtainable: No Constitutional: Reports: malaise Allergies: Coded Allergies: No Known Allergies (Unverified , 08/30/16) Objective Last 24 Hour Vital Signs Date Time Temp Pulse Resp B/P Pulse Ox O2 Delivery O2 Flow Rate FiO2 09/03/16 12:00 28 09/03/16 09:00 62 165/77 09/03/16 08:00 97.5 57 22 165/77 100 Trach Collar 28 09/03/16 08:00 28 09/03/16 08:00 63 09/03/16 07:11 T-piece 5.0 28 09/03/16 07:11 100 T-piece 5.0 09/03/16 07:11 57 16 T-piece 5.0 28 09/03/16 05:43 65 129/75 09/03/16 04:00 28 09/03/16 04:00 64 09/03/16 04:00 97.9 60 20 129/71 100 T-piece 09/03/16 00:58 97.7 59 20 152/69 100 T-piece 09/03/16 00:00 28 09/03/16 00:00 62 09/02/16 21:56 84 146/72 09/02/16 20:44 88 166/75 09/02/16 20:00 54 09/02/16 20:00 28 09/02/16 20:00 97.5 64 24 172/75 100 T-piece 09/02/16 19:03 100 T-piece 5.0 28 09/02/16 19:03 T-piece 5.0 28 09/02/16 19:02 72 16 T-piece 5.0 28 09/02/16 16:00 28 09/02/16 16:00 97.5 62 20 158/84 100 T-piece 28 09/02/16 16:00 63 09/02/16 15:12 100 T-piece 5.0 28 Intake and Output 09/02/16 09/03/16 19:00 07:00 Intake Total 1180 ml 660 ml Output Total 1275 ml 2950 ml Balance -95 ml -2290 ml Intake Free Water 130 ml 100 ml IV Total 110 ml Tube Feeding 840 ml 560 ml Other 100 ml Output Urine Total 1275 ml 2950 ml # Bowel Movements 1 1 Laboratory Tests 09/03/16 04:00: White Blood Count 6.9, Red Blood Count 3.08L, Hemoglobin 9.5L, Hematocrit 30.3L , Mean Corpuscular Volume 98, Mean Corpuscular Hemoglobin 30.9, Mean Corpuscular Hemoglobin Concent 31.5L, Red Cell Distribution Width 17.8H, Platelet Count 51L, Mean Platelet Volume 8.4, Neutrophils (%) (Auto) , Lymphocytes (%) (Auto) , Monocytes (%) (Auto) , Eosinophils (%) (Auto) , Basophils (%) (Auto) , Differential Total Cells Counted 100, Neutrophils % ( Manual) 70, Lymphocytes % (Manual) 19L, Monocytes % (Manual) 7, Eosinophils % ( Manual) 4H, Basophils % (Manual) 0, Band Neutrophils 0, Platelet Estimate DecreasedL, Platelet Morphology Normal, Hypochromasia 1+, Anisocytosis 1+, Prothrombin Time 14.2H, Prothromb Time International Ratio 1.4H, Activated Partial Thromboplast Time 46H, Sodium Level 151H, Potassium Level 3.6, Chloride Level 118H, Carbon Dioxide Level 23, Anion Gap 10, Blood Urea Nitrogen 36H, Creatinine 1.3H, Estimat Glomerular Filtration Rate , Glucose Level 111H, Calcium Level 7.7L, Phosphorus Level 3.1, Magnesium Level 1.6L, Total Bilirubin 1.2, Direct Bilirubin 0.5H, Aspartate Amino Transf (AST/SGOT) 214H, Alanine Aminotransferase (ALT/SGPT) 86H, Alkaline Phosphatase 387H, Total Protein 7.6, Albumin 1.2L, Globulin 6.4, Albumin/Globulin Ratio 0.1L Height (Feet): 6 Height (Inches): 0.00 Weight (Pounds): 200 General Appearance: mild distress Cardiovascular: normal rate Respiratory/Chest: decreased breath sounds Abdomen: distended HUMZA RICK Sep 03, 2016 13:24
[2016-09-03] MEDS ORDERED: D5W 250 ML IVPB ONE (14:00)
--- NOTE | 2016-09-03 15:46 | Infectious Diseases Prog Note ---
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 CXR: Suspect increasing left pleural effusion Severe sepsis SP - resolved lactic acidosis Afebrile without leukocytosis Acute encephalopathy, m/l septic, hepatic CT Head: pending elevated NH4 Elevated LFTs / cirrhosis - improved, hepatitis panel pending US: Liver disease/cirrhosis with stigmata of portal hypertension, Gallstone ARF - improved Chronic VDRF SP trach, PEG Thrombocytopenia h/o esophageal CA [facility] resident NKDA Full Code PLAN: continue invanz d# 3 / ( 09/01 SP IV vancomycin, Cefepime d# 3 ) f/u cultures f/u CT head Monitor CBC, temperatures Monitor CMP Monitor CXR Hepatitis panel :P vent support, trach care, aspiration precautions Subjective Allergies: Coded Allergies: No Known Allergies (Unverified , 08/30/16) Subjective remains afebrile on vent cultures noted Objective Vital Signs Last 24 Hour Vital Signs Date Time Temp Pulse Resp B/P Pulse Ox O2 Delivery O2 Flow Rate FiO2 09/03/16 14:33 62 165/77 09/03/16 12:00 28 09/03/16 12:00 97.5 60 20 157/88 100 Trach Collar 28 09/03/16 09:00 62 165/77 09/03/16 08:00 97.5 57 22 165/77 100 Trach Collar 28 09/03/16 08:00 28 09/03/16 08:00 63 09/03/16 07:11 T-piece 5.0 28 09/03/16 07:11 100 T-piece 5.0 28 09/03/16 07:11 57 16 T-piece 5.0 28 09/03/16 05:43 65 129/75 09/03/16 04:00 28 09/03/16 04:00 64 09/03/16 04:00 97.9 60 20 129/71 100 T-piece 09/03/16 00:58 97.7 59 20 152/69 100 T-piece 09/03/16 00:00 28 09/03/16 00:00 62 09/02/16 21:56 84 146/72 09/02/16 20:44 88 166/75 09/02/16 20:00 54 09/02/16 20:00 28 09/02/16 20:00 97.5 64 24 172/75 100 T-piece 09/02/16 19:03 100 T-piece 5.0 28 09/02/16 19:03 T-piece 5.0 28 09/02/16 19:02 72 16 T-piece 5.0 28 09/02/16 16:00 28 09/02/16 16:00 97.5 62 20 158/84 100 T-piece 28 09/02/16 16:00 63 Height (Feet): 6 Height (Inches): 0.00 Weight (Pounds): 200 General Appearance: no acute distress HEENT: status post trach Respiratory/Chest: decreased breath sounds Cardiovascular: normal rate, regular rhythm Abdomen: normal bowel sounds, soft, non tender, non distended Microbiology Date/Time Source Procedure Growth Status 09/02/16 04:05 Blood Blood Culture - Preliminary NO GROWTH AFTER 24 HOURS Resulted 09/02/16 04:00 Blood Blood Culture - Preliminary NO GROWTH AFTER 24 HOURS Resulted Laboratory Tests Test 09/03/16 04:00 White Blood Count 6.9 K/UL (4.8-10.8) Red Blood Count 3.08 M/UL (4.70-6.10) L Hemoglobin 9.5 G/DL (14.2-18.0) L Hematocrit 30.3 % (42.0-52.0) L Mean Corpuscular Volume 98 FL (80-99) Mean Corpuscular Hemoglobin 30.9 PG (27.0-31.0) Mean Corpuscular Hemoglobin Concent 31.5 G/DL (32.0-36.0) L Red Cell Distribution Width 17.8 % (11.6-14.8) H Platelet Count 51 K/UL (150-450) L Mean Platelet Volume 8.4 FL (6.5-10.1) Neutrophils (%) (Auto) % (45.0-75.0) Lymphocytes (%) (Auto) % (20.0-45.0) Monocytes (%) (Auto) % (1.0-10.0) Eosinophils (%) (Auto) % (0.0-3.0) Basophils (%) (Auto) % (0.0-2.0) Differential Total Cells Counted 100 Neutrophils % (Manual) 70 % (45-75) Lymphocytes % (Manual) 19 % (20-45) L Monocytes % (Manual) 7 % (1-10) Eosinophils % (Manual) 4 % (0-3) H Basophils % (Manual) 0 % (0-2) Band Neutrophils 0 % (0-8) Platelet Estimate Decreased L Platelet Morphology Normal Hypochromasia 1+ Anisocytosis 1+ Prothrombin Time 14.2 SEC (9.30-11.50) H Prothromb Time International Ratio 1.4 (0.9-1.1) H Activated Partial Thromboplast Time 46 SEC (23-33) H Sodium Level 151 mEQ/L (135-145) H Potassium Level 3.6 mEQ/L (3.4-4.9) Chloride Level 118 mEQ/L (98-107) H Carbon Dioxide Level 23 mEQ/L (20-30) Anion Gap 10 (5-15) Blood Urea Nitrogen 36 mg/dL (7-23) H Creatinine 1.3 mg/dL (0.7-1.2) H Estimat Glomerular Filtration Rate mL/min (>60) Glucose Level 111 mg/dL (74-106) H Calcium Level 7.7 mg/dL (8.6-10.2) L Phosphorus Level 3.1 mg/dL (2.5-4.8) Magnesium Level 1.6 mg/dL (1.7-2.5) L Total Bilirubin 1.2 mg/dL (0.0-1.2) Direct Bilirubin 0.5 mg/dL (0.1-0.3) H Aspartate Amino Transf (AST/SGOT) 214 U/L (5-40) H Alanine Aminotransferase (ALT/SGPT) 86 U/L (3-41) H Alkaline Phosphatase 387 U/L (40-129) H Total Protein 7.6 g/dL (6.6-8.7) Albumin 1.2 g/dL (3.5-5.2) L Globulin 6.4 g/dL Albumin/Globulin Ratio 0.1 (1.0-2.7) L Current Medications Medications (Trade) Dose Ordered Sig/Darren Route PRN Reason Start Time Stop Time Status Last Admin Dose Admin Acetaminophen (Tylenol) 650 mg Q4H PRN RECTAL T>100.5 2/3/17 18:15 09/29/16 18:14 Albuterol/ Ipratropium (DuoNeb 0.5-3(2.5)mg/3ml) 3 ml Q4H PRN HHN Shortness of Breath 08/30/16 18:15 09/04/16 18:14 Dextrose (Dextrose 50%) STAT PRN IV Hypoglycemia 08/30/16 18:15 09/29/16 18:14 Ertapenem/Sodium Chloride (INVanz/Sodium Chloride) 55 ml @ 110 mls/hr Q24H IVPB 09/01/16 15:00 09/06/16 14:59 09/02/16 16:04 Lactulose (Cephulac) 30 gm FOUR TIMES A DAY ORAL 08/30/16 21:00 09/29/16 20:59 09/03/16 09:59 Magnesium Sulfate (Magnesium Sulfate 1gm/100ml) 100 ml @ 100 mls/hr Q1H IVPB 09/03/16 14:00 09/03/16 15:59 09/03/16 14:33 Metoclopramide HCl (Reglan) 10 mg Q6H PRN IVP Nausea & Vomiting 08/30/16 18:15 09/29/16 18:14 Metoprolol Tartrate 50 mg 50 mg EVERY 12 HOURS GT 09/01/16 21:00 10/01/16 20:59 09/03/16 09:00 Morphine Sulfate (Morphine Sulfate) 2 mg Q4H PRN IVP PAIN 4-10 08/30/16 18:15 09/06/16 18:14 09/02/16 00:12 Multivitamins (Multivitamin Hexavitamin) 5 ml DAILY GT 08/31/16 09:00 09/30/16 08:59 09/03/16 09:00 Ondansetron HCl (Zofran) 4 mg Q6H PRN IVP Nausea & Vomiting 08/30/16 18:15 09/29/16 18:14 Pantoprazole 40 mg 40 mg DAILY IVP 09/03/16 09:00 10/03/16 08:59 09/03/16 09:59 Polyethylene Glycol (Miralax) 17 gm DAILYPRN PRN ORAL Constipation 08/30/16 18:15 3/5/17 18:14 Propranolol HCl (Inderal) 10 mg Q8HR ORAL 09/01/16 14:00 10/01/16 13:59 09/03/16 14:33 Ranitidine HCl (Zantac) 150 mg QHS ORAL 08/30/16 21:00 09/29/16 20:59 09/02/16 20:45 Rifaximin (Xifaxan) 550 mg EVERY 12 HOURS ORAL 09/01/16 09:00 09/08/16 08:59 09/03/16 10:00 Vitamin A/Vitamin D (A & D Oint) 1 applic EVERY 12 HOURS TOPIC 08/30/16 21:00 09/29/16 20:59 09/03/16 09:00 TIAN PERERA Sep 03, 2016 15:46
[2016-09-03 16:00] VITALS: BP 156/75
[2016-09-03] MEDS: Ertapenem 1 GM in NS 55 ML IVPB SCH (16:48)
[2016-09-03] MEDS ORDERED: Tubing IV Secondary IV ONE (16:58)
[2016-09-03] MEDS ORDERED: NS 275ml ONE (16:58)
[2016-09-03 20:13] VITALS: BP 155/78
[2016-09-04] VITALS: BP 154/80
[2016-09-04 04:00] VITALS: BP 158/65
[2016-09-04] MEDS: Propranolol 10mg tab ORAL SCH ×3 (05:44→21:38)
[2016-09-04 05:50] LABS: INR 1.4 (0.9-1.1); PROTHROMBIN TIME 14.4 SEC (9.30-11.50)
[2016-09-04 06:03] LABS: MEAN CORPUSCULAR HEMOGLOBIN 31.3 PG (27.0-31.0); MEAN CORPUSCULAR HGB CONC 31.1 G/DL (32.0-36.0); MEAN CORPUSCULAR VOLUME 100 FL (80-99); MEAN PLATELET VOLUME 6.6 FL (6.5-10.1); PLATELET COUNT 58 K/UL (150-450); RED BLOOD COUNT 3.02 M/UL (4.70-6.10); RED CELL DISTRIBUTION WIDTH 16.9 % (11.6-14.8); WHITE BLOOD COUNT 8.7 K/UL (4.8-10.8)
[2016-09-04 06:16] LABS: ALANINE AMINOTRANSFERASE 77 U/L (3-41); ALBUMIN/GLOBULIN RATIO 0.2 (1.0-2.7); ANION GAP 9 (5-15); ASPARTATE AMINO TRANSFERASE 177 U/L (5-40); CALCIUM 7.5 mg/dL (8.6-10.2); CARBON DIOXIDE 23 mEQ/L (20-30); CHLORIDE 117 mEQ/L (98-107); CREATININE 1.1 mg/dL (0.7-1.2); HEMOLYSIS 2; MAGNESIUM 1.8 mg/dL (1.7-2.5); PHOSPHORUS 3.1 mg/dL (2.5-4.8); POTASSIUM 3.9 mEQ/L (3.4-4.9); SODIUM 149 mEQ/L (135-145); TOTAL PROTEIN 7.7 g/dL (6.6-8.7)
[2016-09-04 08:00] VITALS: BP 126/69
[2016-09-04 08:01] LABS: BILIRUBIN,DIRECT 0.5 mg/dL (0.1-0.3)
[2016-09-04] MEDS: Metoprolol 50mg tab GT SCH ×2 (09:00→21:39)
[2016-09-04] MEDS: Vitamin A&D Oint 2oz Tube TOPIC SCH ×2 (09:52→21:41)
[2016-09-04] MEDS: Rifaximin 550mg tab ORAL SCH ×2 (09:52→21:38)
[2016-09-04] MEDS: Lactulose 20gm/30ml UDC ORAL SCH ×4 (09:53→21:39)
[2016-09-04] MEDS: Pantoprazole Inj IVP SCH (09:53)
[2016-09-04] MEDS: Multivitamin 5ml Liquid GT SCH (09:53)
[2016-09-04 10:02] LABS: ANISOCYTOSIS 1+; BAND NEUTROPHILS % (MANUAL) 0 % (0-8); BASOPHILS % (MANUAL) 0 % (0-2); EOSINOPHILS % (MANUAL) 4 % (0-3); HYPOCHROMASIA 1+; LYMPHOCYTES % (MANUAL) 11 % (20-45); MACROCYTES 1+; NEUTROPHILS % (MANUAL) 75 % (45-75); PLATELET ESTIMATE DECREASED; PLATELET MORPHOLOGY NORMAL; TOTAL CELLS COUNTED 100
--- NOTE | 2016-09-04 10:22 | General Progress Note ---
Assessment/Plan Status: stable - from renal stand Assessment/Plan Status: acute renal failure - improving acute hepatic encephalopathy tracheostomy status & acute on chronic respiratory failure sepsis with bacteremia / UTI esophageal CA cirrhosis & portal hypertension & ascites & thrombocytopenia , severe hypoalbuminemia R foot wound dysphagia, G tube Plan: continue as is- Antibiotics- Avoid Nephrotoxics- Watch for Sxs of volume overload Monitor renal parameters Mag supplement Subjective ROS Limited/Unobtainable: Yes Allergies: Coded Allergies: No Known Allergies (Unverified , 08/30/16) Objective Last 24 Hour Vital Signs Date Time Temp Pulse Resp B/P Pulse Ox O2 Delivery O2 Flow Rate FiO2 09/04/16 09:00 58 124/68 09/04/16 08:00 97.5 58 18 126/69 98 Trach Collar 28 09/04/16 06:52 T-piece 5.0 09/04/16 06:52 100 T-piece 5.0 09/04/16 06:52 62 16 T-piece 5.0 09/04/16 05:44 60 146/78 09/04/16 04:00 59 09/04/16 04:00 28 09/04/16 04:00 97.7 24 158/65 100 T-piece 09/04/16 00:00 60 09/04/16 00:00 28 09/04/16 00:00 98.0 64 24 154/80 100 T-piece 09/03/16 21:54 66 142/76 09/03/16 20:14 65 155/78 09/03/16 20:13 97.8 61 22 155/78 100 Trach Collar 09/03/16 20:00 60 09/03/16 20:00 28 09/03/16 19:00 100 T-piece 5.0 28 09/03/16 19:00 58 16 T-piece 5.0 28 09/03/16 19:00 T-piece 5.0 28 09/03/16 16:00 97.0 61 22 156/75 100 Trach Collar 09/03/16 16:00 28 09/03/16 16:00 62 09/03/16 14:33 62 165/77 09/03/16 12:00 28 09/03/16 12:00 97.5 60 20 157/88 100 Trach Collar 28 09/03/16 12:00 59 Intake and Output 09/03/16 09/04/16 19:00 07:00 Intake Total 1450 ml 380 ml Output Total 750 ml 1150 ml Balance 700 ml -770 ml Intake Free Water 150 ml 100 ml IV Total 460 ml Tube Feeding 840 ml 280 ml Output Urine Total 750 ml 1150 ml # Bowel Movements 3 3 Laboratory Tests 09/04/16 04:25: White Blood Count 8.7, Red Blood Count 3.02L, Hemoglobin 9.4L, Hematocrit 30.3L , Mean Corpuscular Volume 100H, Mean Corpuscular Hemoglobin 31.3H, Mean Corpuscular Hemoglobin Concent 31.1L, Red Cell Distribution Width 16.9H, Platelet Count 58L, Mean Platelet Volume 6.6, Neutrophils (%) (Auto) , Lymphocytes (%) (Auto) , Monocytes (%) (Auto) , Eosinophils (%) (Auto) , Basophils (%) (Auto) , Differential Total Cells Counted 100, Neutrophils % ( Manual) 75, Lymphocytes % (Manual) 11L, Monocytes % (Manual) 10, Eosinophils % ( Manual) 4H, Basophils % (Manual) 0, Band Neutrophils 0, Platelet Estimate DecreasedL, Platelet Morphology Normal, Hypochromasia 1+, Anisocytosis 1+, Macrocytosis 1+, Prothrombin Time 14.4H, Prothromb Time International Ratio 1.4H , Activated Partial Thromboplast Time 45H, Sodium Level 149H, Potassium Level 3.9, Chloride Level 117H, Carbon Dioxide Level 23, Anion Gap 9, Blood Urea Nitrogen 29H, Creatinine 1.1, Estimat Glomerular Filtration Rate , Glucose Level 70L, Calcium Level 7.5L, Phosphorus Level 3.1, Magnesium Level 1.8, Total Bilirubin 1.3H, Direct Bilirubin 0.5H, Aspartate Amino Transf (AST/SGOT) 177H, Alanine Aminotransferase (ALT/SGPT) 77H, Alkaline Phosphatase 336H, Total Protein 7.7, Albumin 1.3L, Globulin 6.4, Albumin/Globulin Ratio 0.2L Height (Feet): 6 Height (Inches): 0.00 Weight (Pounds): 200 General Appearance: no apparent distress Cardiovascular: normal rate, bradycardia Respiratory/Chest: decreased breath sounds Abdomen: distended HUMZA RICK Sep 04, 2016 10:22
--- NOTE | 2016-09-04 11:48 | Pulmonology Progress Note ---
Assessment/Plan Problems: (1) Bacteremia (2) Chronic respiratory disease (3) Acute kidney injury (4) Severe sepsis (5) Cirrhosis Assessment/Plan continue antibiotics check cultures tolerating feeding, jeviti 70 cc check electrolytes dvt prophlaxis renal function improving. continue antibiotics on Inv[facility] med/surg dc planning in 1/2 days on IV antibiotics Subjective ROS Limited/Unobtainable: No Interval Events: awake, comfortable Allergies: Coded Allergies: No Known Allergies (Unverified , 08/30/16) Objective Last 24 Hour Vital Signs Date Time Temp Pulse Resp B/P Pulse Ox O2 Delivery O2 Flow Rate FiO2 09/04/16 09:00 58 124/68 09/04/16 08:00 54 09/04/16 08:00 97.5 58 18 126/69 98 Trach Collar 28 09/04/16 08:00 28 09/04/16 06:52 T-piece 5.0 28 09/04/16 06:52 100 T-piece 5.0 09/04/16 06:52 62 16 T-piece 5.0 09/04/16 05:44 60 146/78 09/04/16 04:00 59 09/04/16 04:00 28 09/04/16 04:00 97.7 24 158/65 100 T-piece 09/04/16 00:00 60 09/04/16 00:00 28 09/04/16 00:00 98.0 64 24 154/80 100 T-piece 09/03/16 21:54 66 142/76 09/03/16 20:14 65 155/78 09/03/16 20:13 97.8 61 22 155/78 100 Trach Collar 09/03/16 20:00 60 09/03/16 20:00 28 09/03/16 19:00 100 T-piece 5.0 28 09/03/16 19:00 58 16 T-piece 5.0 28 09/03/16 19:00 T-piece 5.0 28 09/03/16 16:00 97.0 61 22 156/75 100 Trach Collar 09/03/16 16:00 28 09/03/16 16:00 62 09/03/16 14:33 62 165/77 09/03/16 12:00 28 09/03/16 12:00 97.5 60 20 157/88 100 Trach Collar 28 09/03/16 12:00 59 Intake and Output 09/03/16 09/04/16 19:00 07:00 Intake Total 1450 ml 380 ml Output Total 750 ml 1150 ml Balance 700 ml -770 ml Intake Free Water 150 ml 100 ml IV Total 460 ml Tube Feeding 840 ml 280 ml Output Urine Total 750 ml 1150 ml # Bowel Movements 3 3 General Appearance: cachetic HEENT: normocephalic, atraumatic Respiratory/Chest: chest wall non-tender, lungs clear Cardiovascular: normal peripheral pulses, normal rate Abdomen: normal bowel sounds, soft, non tender Extremities: no cyanosis, no clubbing Neurologic/Psychiatric: case management director II-XII grossly normal, abnormal gait Microbiology Date/Time Source Procedure Growth Status 09/02/16 04:05 Blood Blood Culture - Preliminary NO GROWTH AFTER 48 HOURS Resulted 09/02/16 04:00 Blood Blood Culture - Preliminary NO GROWTH AFTER 48 HOURS Resulted Laboratory Tests 09/04/16 04:25: White Blood Count 8.7, Red Blood Count 3.02L, Hemoglobin 9.4L, Hematocrit 30.3L , Mean Corpuscular Volume 100H, Mean Corpuscular Hemoglobin 31.3H, Mean Corpuscular Hemoglobin Concent 31.1L, Red Cell Distribution Width 16.9H, Platelet Count 58L, Mean Platelet Volume 6.6, Neutrophils (%) (Auto) , Lymphocytes (%) (Auto) , Monocytes (%) (Auto) , Eosinophils (%) (Auto) , Basophils (%) (Auto) , Differential Total Cells Counted 100, Neutrophils % ( Manual) 75, Lymphocytes % (Manual) 11L, Monocytes % (Manual) 10, Eosinophils % ( Manual) 4H, Basophils % (Manual) 0, Band Neutrophils 0, Platelet Estimate DecreasedL, Platelet Morphology Normal, Hypochromasia 1+, Anisocytosis 1+, Macrocytosis 1+, Prothrombin Time 14.4H, Prothromb Time International Ratio 1.4H , Activated Partial Thromboplast Time 45H, Sodium Level 149H, Potassium Level 3.9, Chloride Level 117H, Carbon Dioxide Level 23, Anion Gap 9, Blood Urea Nitrogen 29H, Creatinine 1.1, Estimat Glomerular Filtration Rate , Glucose Level 70L, Calcium Level 7.5L, Phosphorus Level 3.1, Magnesium Level 1.8, Total Bilirubin 1.3H, Direct Bilirubin 0.5H, Aspartate Amino Transf (AST/SGOT) 177H, Alanine Aminotransferase (ALT/SGPT) 77H, Alkaline Phosphatase 336H, Total Protein 7.7, Albumin 1.3L, Globulin 6.4, Albumin/Globulin Ratio 0.2L Current Medications Medications (Trade) Dose Ordered Sig/Darren Route PRN Reason Start Time Stop Time Status Last Admin Dose Admin Acetaminophen (Tylenol) 650 mg Q4H PRN RECTAL T>100.5 08/30/16 18:15 09/29/16 18:14 Albuterol/ Ipratropium (DuoNeb 0.5-3(2.5)mg/3ml) 3 ml Q4H PRN HHN Shortness of Breath 08/30/16 18:15 09/04/16 18:14 Dextrose (Dextrose 50%) STAT PRN IV Hypoglycemia 08/30/16 18:15 09/29/16 18:14 Ertapenem/Sodium Chloride (INVanz/Sodium Chloride) 55 ml @ 110 mls/hr Q24H IVPB 09/01/16 15:00 09/06/16 14:59 09/03/16 16:48 Lactulose (Cephulac) 30 gm FOUR TIMES A DAY ORAL 08/30/16 21:00 09/29/16 20:59 09/04/16 09:53 Metoclopramide HCl (Reglan) 10 mg Q6H PRN IVP Nausea & Vomiting 08/30/16 18:15 09/29/16 18:14 Metoprolol Tartrate 50 mg 50 mg EVERY 12 HOURS GT 09/01/16 21:00 10/01/16 20:59 09/03/16 20:14 Morphine Sulfate (Morphine Sulfate) 2 mg Q4H PRN IVP PAIN 4-10 08/30/16 18:15 09/06/16 18:14 09/02/16 00:12 Multivitamins (Multivitamin Hexavitamin) 5 ml DAILY GT 08/31/16 09:00 09/30/16 08:59 09/04/16 09:53 Ondansetron HCl (Zofran) 4 mg Q6H PRN IVP Nausea & Vomiting 08/30/16 18:15 09/29/16 18:14 Pantoprazole (Protonix) 40 mg DAILY IVP 09/03/16 09:00 10/03/16 08:59 2/8/17 09:53 Polyethylene Glycol (Miralax) 17 gm DAILYPRN PRN ORAL Constipation 08/30/16 18:15 09/29/16 18:14 Propranolol HCl (Inderal) 10 mg Q8HR ORAL 09/01/16 14:00 10/01/16 13:59 09/04/16 05:44 Ranitidine HCl (Zantac) 150 mg QHS ORAL 08/30/16 21:00 09/29/16 20:59 09/03/16 20:14 Rifaximin (Xifaxan) 550 mg EVERY 12 HOURS ORAL 09/01/16 09:00 09/08/16 08:59 09/04/16 09:52 Vitamin A/Vitamin D (A & D Oint) 1 applic EVERY 12 HOURS TOPIC 08/30/16 21:00 09/29/16 20:59 09/04/16 09:52 MARC RUTLEDGE Sep 04, 2016 11:48
[2016-09-04 12:00] VITALS: BP 141/74
--- NOTE | 2016-09-04 12:23 | GI Progress Note ---
Assessment/Plan Problems: (1) Anemia ICD Codes: D64.9 - Anemia, unspecified SNOMED: 698562998 (2) Esophageal varices ICD Codes: I85.00 - Esophageal varices without bleeding SNOMED: 93254956 (3) Cirrhosis ICD Codes: K74.60 - Unspecified cirrhosis of liver SNOMED: 36517187 (4) Portal hypertension ICD Codes: K76.6 - Portal hypertension SNOMED: 11487456 (5) Severe sepsis ICD Codes: A41.9 - Sepsis, unspecified organism; R65.20 - Severe sepsis without septic shock SNOMED: 74047112 Status: stable Status Narrative Discussed with Dr. Grace. Assessment/Plan elevated ammonia >> Xifaxan + lactulose abd U/S reviewed >> Liver disease/cirrhosis with stigmata of portal hypertension including splenomegaly, ascites, portosystemic varices, hepatofugal portal vein flow. hep C positive >> outpt tx portal HTN >> propranolol TID GTFs ppi + H2 fu labs Subjective Subjective limited Objective Last 24 Hour Vital Signs Date Time Temp Pulse Resp B/P Pulse Ox O2 Delivery O2 Flow Rate FiO2 09/04/16 12:00 28 09/04/16 09:00 58 124/68 09/04/16 08:00 54 09/04/16 08:00 97.5 58 18 126/69 98 Trach Collar 28 09/04/16 08:00 28 09/04/16 06:52 T-piece 5.0 28 09/04/16 06:52 100 T-piece 5.0 28 09/04/16 06:52 62 16 T-piece 5.0 09/04/16 05:44 60 146/78 09/04/16 04:00 59 09/04/16 04:00 28 09/04/16 04:00 97.7 24 158/65 100 T-piece 09/04/16 00:00 60 09/04/16 00:00 28 09/04/16 00:00 98.0 64 24 154/80 100 T-piece 09/03/16 21:54 66 142/76 09/03/16 20:14 65 155/78 09/03/16 20:13 97.8 61 22 155/78 100 Trach Collar 09/03/16 20:00 60 09/03/16 20:00 28 09/03/16 19:00 100 T-piece 5.0 28 09/03/16 19:00 58 16 T-piece 5.0 28 09/03/16 19:00 T-piece 5.0 28 09/03/16 16:00 97.0 61 22 156/75 100 Trach Collar 09/03/16 16:00 28 09/03/16 16:00 62 09/03/16 14:33 62 165/77 Intake and Output 09/03/16 09/04/16 19:00 07:00 Intake Total 1450 ml 380 ml Output Total 750 ml 1150 ml Balance 700 ml -770 ml Intake Free Water 150 ml 100 ml IV Total 460 ml Tube Feeding 840 ml 280 ml Output Urine Total 750 ml 1150 ml # Bowel Movements 3 3 Laboratory Tests Test 09/04/16 04:25 White Blood Count 8.7 K/UL (4.8-10.8) Red Blood Count 3.02 M/UL (4.70-6.10) L Hemoglobin 9.4 G/DL (14.2-18.0) L Hematocrit 30.3 % (42.0-52.0) L Mean Corpuscular Volume 100 FL (80-99) H Mean Corpuscular Hemoglobin 31.3 PG (27.0-31.0) H Mean Corpuscular Hemoglobin Concent 31.1 G/DL (32.0-36.0) L Red Cell Distribution Width 16.9 % (11.6-14.8) H Platelet Count 58 K/UL (150-450) L Mean Platelet Volume 6.6 FL (6.5-10.1) Neutrophils (%) (Auto) % (45.0-75.0) Lymphocytes (%) (Auto) % (20.0-45.0) Monocytes (%) (Auto) % (1.0-10.0) Eosinophils (%) (Auto) % (0.0-3.0) Basophils (%) (Auto) % (0.0-2.0) Differential Total Cells Counted 100 Neutrophils % (Manual) 75 % (45-75) Lymphocytes % (Manual) 11 % (20-45) L Monocytes % (Manual) 10 % (1-10) Eosinophils % (Manual) 4 % (0-3) H Basophils % (Manual) 0 % (0-2) Band Neutrophils 0 % (0-8) Platelet Estimate Decreased L Platelet Morphology Normal Hypochromasia 1+ Anisocytosis 1+ Macrocytosis 1+ Prothrombin Time 14.4 SEC (9.30-11.50) H Prothromb Time International Ratio 1.4 (0.9-1.1) H Activated Partial Thromboplast Time 45 SEC (23-33) H Sodium Level 149 mEQ/L (135-145) H Potassium Level 3.9 mEQ/L (3.4-4.9) Chloride Level 117 mEQ/L (98-107) H Carbon Dioxide Level 23 mEQ/L (20-30) Anion Gap 9 (5-15) Blood Urea Nitrogen 29 mg/dL (7-23) H Creatinine 1.1 mg/dL (0.7-1.2) Estimat Glomerular Filtration Rate mL/min (>60) Glucose Level 70 mg/dL (74-106) L Calcium Level 7.5 mg/dL (8.6-10.2) L Phosphorus Level 3.1 mg/dL (2.5-4.8) Magnesium Level 1.8 mg/dL (1.7-2.5) Total Bilirubin 1.3 mg/dL (0.0-1.2) H Direct Bilirubin 0.5 mg/dL (0.1-0.3) H Aspartate Amino Transf (AST/SGOT) 177 U/L (5-40) H Alanine Aminotransferase (ALT/SGPT) 77 U/L (3-41) H Alkaline Phosphatase 336 U/L (40-129) H Total Protein 7.7 g/dL (6.6-8.7) Albumin 1.3 g/dL (3.5-5.2) L Globulin 6.4 g/dL Albumin/Globulin Ratio 0.2 (1.0-2.7) L Height (Feet): 6 Height (Inches): 0.00 Weight (Pounds): 200 General Appearance: no apparent distress Cardiovascular: normal rate Respiratory/Chest: other - mech vent Abdominal Exam: normal bowel sounds, GT site - c/d/i Objective Procedure: US ABD Complete Indication:Abdominal pain and elevated liver function tests Impression: Liver disease/cirrhosis with stigmata of portal hypertension including splenomegaly, ascites, portosystemic varices, hepatofugal portal vein flow. Gallstone Suspected small nonobstructive stone left kidney Snow Pyle N.P. Sep 04, 2016 12:23
[2016-09-04 16:00] VITALS: BP 154/79
[2016-09-04] MEDS ORDERED: Acetaminophen 650 MG SUPP RECTAL PRN (16:00)
[2016-09-04] MEDS ORDERED: DuoNeb 0.5-3(2.5)mg/3ml neb HHN PRN (16:00)
--- NOTE | 2016-09-04 16:17 | Diagnostic Imaging Report ---
APPROVED REPORT CPT Code: 97174 Present Symptoms Lower Extremity Pain: Bilateral BILATERAL: Imaging reveals a patent deep venous system bilaterally. There is no evidence of thrombus within the femoral, popliteal or tibial segments. The greater saphenous veins are also within normal limits. Doppler indicates normal spontaneous flow within these segments.
[2016-09-04] MEDS ORDERED: Morphine Sulfate 2mg/ml Inj IVP PRN (17:00)
--- NOTE | 2016-09-04 17:44 | Infectious Diseases Prog Note ---
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 CXR: Suspect increasing left pleural effusion Severe sepsis SP - resolved lactic acidosis Afebrile without leukocytosis Acute encephalopathy, m/l septic, hepatic elevated NH4 HCV Ab(+) / elevated LFTs / cirrhosis - improved US: Liver disease/cirrhosis with stigmata of portal hypertension, Gallstone ARF - improved Chronic respiratory failure / trach collar Thrombocytopenia h/o esophageal CA [facility] resident NKDA Full Code PLAN: continue invanz d# 4 / 14 ( 2 SP IV vancomycin, Cefepime d# 3 ) f/u cultures Monitor CBC, temperatures Monitor CMP Monitor CXR trach care, aspiration precautions Subjective Allergies: Coded Allergies: No Known Allergies (Unverified , 08/30/16) Subjective remains afebrile transferred to Objective Vital Signs Last 24 Hour Vital Signs Date Time Temp Pulse Resp B/P Pulse Ox O2 Delivery O2 Flow Rate FiO2 09/04/16 13:47 60 09/04/16 12:00 59 09/04/16 12:00 28 09/04/16 12:00 97.3 60 18 141/74 98 Trach Collar 28 09/04/16 09:00 58 124/68 09/04/16 08:00 54 09/04/16 08:00 97.5 58 18 126/69 98 Trach Collar 28 09/04/16 08:00 28 09/04/16 06:52 T-piece 5.0 09/04/16 06:52 100 T-piece 5.0 09/04/16 06:52 62 16 T-piece 5.0 09/04/16 05:44 60 146/78 09/04/16 04:00 59 09/04/16 04:00 28 09/04/16 04:00 97.7 24 158/65 100 T-piece 09/04/16 00:00 60 09/04/16 00:00 28 09/04/16 00:00 98.0 64 24 154/80 100 T-piece 09/03/16 21:54 66 142/76 09/03/16 20:14 65 155/78 09/03/16 20:13 97.8 61 22 155/78 100 Trach Collar 09/03/16 20:00 60 09/03/16 20:00 28 09/03/16 19:00 100 T-piece 5.0 28 09/03/16 19:00 58 16 T-piece 5.0 28 09/03/16 19:00 T-piece 5.0 28 Height (Feet): 6 Height (Inches): 0.00 Weight (Pounds): 200 General Appearance: no acute distress HEENT: status post trach Respiratory/Chest: decreased breath sounds Cardiovascular: normal rate, regular rhythm Abdomen: normal bowel sounds, soft, non tender, non distended Microbiology Date/Time Source Procedure Growth Status 09/02/16 04:05 Blood Blood Culture - Preliminary NO GROWTH AFTER 48 HOURS Resulted 09/02/16 04:00 Blood Blood Culture - Preliminary NO GROWTH AFTER 48 HOURS Resulted Laboratory Tests Test 09/04/16 04:25 White Blood Count 8.7 K/UL (4.8-10.8) Red Blood Count 3.02 M/UL (4.70-6.10) L Hemoglobin 9.4 G/DL (14.2-18.0) L Hematocrit 30.3 % (42.0-52.0) L Mean Corpuscular Volume 100 FL (80-99) H Mean Corpuscular Hemoglobin 31.3 PG (27.0-31.0) H Mean Corpuscular Hemoglobin Concent 31.1 G/DL (32.0-36.0) L Red Cell Distribution Width 16.9 % (11.6-14.8) H Platelet Count 58 K/UL (150-450) L Mean Platelet Volume 6.6 FL (6.5-10.1) Neutrophils (%) (Auto) % (45.0-75.0) Lymphocytes (%) (Auto) % (20.0-45.0) Monocytes (%) (Auto) % (1.0-10.0) Eosinophils (%) (Auto) % (0.0-3.0) Basophils (%) (Auto) % (0.0-2.0) Differential Total Cells Counted 100 Neutrophils % (Manual) 75 % (45-75) Lymphocytes % (Manual) 11 % (20-45) L Monocytes % (Manual) 10 % (1-10) Eosinophils % (Manual) 4 % (0-3) H Basophils % (Manual) 0 % (0-2) Band Neutrophils 0 % (0-8) Platelet Estimate Decreased L Platelet Morphology Normal Hypochromasia 1+ Anisocytosis 1+ Macrocytosis 1+ Prothrombin Time 14.4 SEC (9.30-11.50) H Prothromb Time International Ratio 1.4 (0.9-1.1) H Activated Partial Thromboplast Time 45 SEC (23-33) H Sodium Level 149 mEQ/L (135-145) H Potassium Level 3.9 mEQ/L (3.4-4.9) Chloride Level 117 mEQ/L (98-107) H Carbon Dioxide Level 23 mEQ/L (20-30) Anion Gap 9 (5-15) Blood Urea Nitrogen 29 mg/dL (7-23) H Creatinine 1.1 mg/dL (0.7-1.2) Estimat Glomerular Filtration Rate mL/min (>60) Glucose Level 70 mg/dL (74-106) L Calcium Level 7.5 mg/dL (8.6-10.2) L Phosphorus Level 3.1 mg/dL (2.5-4.8) Magnesium Level 1.8 mg/dL (1.7-2.5) Total Bilirubin 1.3 mg/dL (0.0-1.2) H Direct Bilirubin 0.5 mg/dL (0.1-0.3) H Aspartate Amino Transf (AST/SGOT) 177 U/L (5-40) H Alanine Aminotransferase (ALT/SGPT) 77 U/L (3-41) H Alkaline Phosphatase 336 U/L (40-129) H Total Protein 7.7 g/dL (6.6-8.7) Albumin 1.3 g/dL (3.5-5.2) L Globulin 6.4 g/dL Albumin/Globulin Ratio 0.2 (1.0-2.7) L Current Medications Medications (Trade) Dose Ordered Sig/Darren Route PRN Reason Start Time Stop Time Status Last Admin Dose Admin Acetaminophen (Tylenol) 650 mg Q4H PRN RECTAL T>100.5 09/04/16 16:00 10/04/16 15:59 Albuterol/ Ipratropium (DuoNeb 0.5-3(2.5)mg/3ml) 3 ml Q4H PRN HHN Shortness of Breath 09/04/16 16:00 09/09/16 15:59 Dextrose (Dextrose 50%) STAT PRN IV Hypoglycemia 09/04/16 16:00 10/04/16 15:59 Ertapenem/Sodium Chloride (INVanz/Sodium Chloride) 55 ml @ 110 mls/hr Q24H IVPB 09/05/16 15:00 09/08/16 14:59 Lactulose (Cephulac) 30 gm FOUR TIMES A DAY ORAL 09/04/16 18:00 10/04/16 17:59 Metoclopramide HCl (Reglan) 10 mg Q6H PRN IVP N/V UNRELIEVED BY SAUL 09/04/16 18:15 10/04/16 18:14 Metoprolol Tartrate (Lopressor) 50 mg EVERY 12 HOURS GT 09/04/16 21:00 10/04/16 20:59 Morphine Sulfate (Morphine Sulfate) 2 mg Q4H PRN IVP PAIN 4-10 09/04/16 17:00 09/11/16 16:59 Multivitamins (Multivitamin Hexavitamin) 5 ml DAILY GT 09/05/16 09:00 10/05/16 08:59 Ondansetron HCl (Zofran) 4 mg Q6H PRN IVP Nausea & Vomiting 09/04/16 17:00 10/04/16 16:59 Pantoprazole (Protonix) 40 mg DAILY IVP 09/05/16 09:00 10/05/16 08:59 Polyethylene Glycol (Miralax) 17 gm DAILYPRN PRN GT Constipation 09/04/16 18:15 10/04/16 18:14 Propranolol HCl (Inderal) 10 mg Q8HR ORAL 09/04/16 22:00 10/04/16 21:59 Ranitidine HCl (Zantac) 150 mg QHS GT 09/04/16 21:00 10/04/16 20:59 Rifaximin (Xifaxan) 550 mg EVERY 12 HOURS ORAL 09/04/16 21:00 09/11/16 20:59 Vitamin A/Vitamin D (A & D Oint) 1 applic EVERY 12 HOURS TOPIC 09/04/16 21:00 10/04/16 20:59 TIAN PERERA Sep 04, 2016 17:44
[2016-09-04] MEDS ORDERED: Miralax 17gm pkt GT PRN (18:15)
[2016-09-04] MEDS ORDERED: Metoclopramide 10mg/2ml Inj IVP PRN (18:15)
[2016-09-04 20:00] VITALS: BP 148/76
[2016-09-05] VITALS: BP 154/78
--- NOTE | 2016-09-05 00:07 | Progress Note ---
DATE: 09/04/2016 NOTE: POOR VOICE QUALITY SUBJECTIVE: The patient is awake and alert. Eye contact with no verbal response. He is afebrile and hemodynamically stable. PHYSICAL EXAMINATION: VITAL SIGNS: Blood pressure 154/79, pulse 61, respiration rate 19, and temperature 98.1 degrees. HEENT: Eyes were normal. ENT, mucous membranes were moist and intact. NECK: Supple with no JVD without lymph nodes. Tracheostomy site is clean. LUNGS: Clear without rhonchi, rales, or wheezing. Secretions are small, thin, and solis. HEART: Normal heart sounds with regular beats. There is no tachycardia at rest. There is no S3, S4, or pericardial rub. ABDOMEN: Soft and nontender with normal bowel sounds. Gastrostomy site is clean. EXTREMITIES: Warm without cyanosis, clubbing, or edema. contraction deformities . Laboratory And Diagnostic Data: Hemoglobin 9.1, hematocrit was 30.3 with MCV of 100, WBC of 8.7, and platelets of 58,000. His BUN and creatinine is 29 and 1.1 respectively. Sodium is 139, potassium 3.9, chloride 117, CO2 is 23. His glucose is 70. His calcium is 7.5. His bilirubin is 1.8. His phosphorus is 3.1. Liver function tests were elevated. SGOT is 127 and SGPT is 77. . His SGPT 86, and alkaline phosphatase is 187. . His Pro-BNP is 4037. His albumin is 1.3 02:56 6.1. Total protein is 7.7. His chest x-ray reveals right . There is an increase in his current fluid on his chest x-ray is clear. IMPRESSION: The patient has elevated liver function tests hepatitis B and C. He appeared to be more stable that yesterday. Repeat laboratory test will be done in the Gabriella Romero M.D. DR: GABRIEL JOB#: [id number] CC:
[2016-09-05 04:00] VITALS: BP_SYST 127; BP_SYST 160; BP_DIAS 100; BP_DIAS 85
[2016-09-05] MEDS: Propranolol 10mg tab ORAL SCH ×2 (05:36→13:04)
[2016-09-05 07:13] LABS: ALANINE AMINOTRANSFERASE 72 U/L (3-41); ALBUMIN/GLOBULIN RATIO 0.2 (1.0-2.7); ANION GAP 7 (5-15); ASPARTATE AMINO TRANSFERASE 163 U/L (5-40); CALCIUM 7.4 mg/dL (8.6-10.2); CARBON DIOXIDE 25 mEQ/L (20-30); CHLORIDE 116 mEQ/L (98-107); CREATININE 1.1 mg/dL (0.7-1.2); HEMOLYSIS 0; MAGNESIUM 1.6 mg/dL (1.7-2.5); MEAN CORPUSCULAR HEMOGLOBIN 31.6 PG (27.0-31.0); MEAN CORPUSCULAR HGB CONC 32.1 G/DL (32.0-36.0); MEAN CORPUSCULAR VOLUME 98 FL (80-99); MEAN PLATELET VOLUME 6.8 FL (6.5-10.1); PHOSPHORUS 3.2 mg/dL (2.5-4.8); PLATELET COUNT 66 K/UL (150-450); POTASSIUM 3.9 mEQ/L (3.4-4.9); RED BLOOD COUNT 2.95 M/UL (4.70-6.10); RED CELL DISTRIBUTION WIDTH 16.9 % (11.6-14.8); SODIUM 148 mEQ/L (135-145); TOTAL PROTEIN 7.6 g/dL (6.6-8.7); WHITE BLOOD COUNT 8.5 K/UL (4.8-10.8)
[2016-09-05 07:55] LABS: BILIRUBIN,DIRECT 0.4 mg/dL (0.1-0.3)
[2016-09-05 08:00] VITALS: BP 151/68
[2016-09-05] MEDS ORDERED: Multivitamin 5ml Liquid GT SCH (09:00)
[2016-09-05] MEDS ORDERED: Pantoprazole Inj IVP SCH (09:00)
[2016-09-05 09:38] LABS: ANISOCYTOSIS 1+; BAND NEUTROPHILS % (MANUAL) 0 % (0-8); BASOPHILS % (MANUAL) 0 % (0-2); EOSINOPHILS % (MANUAL) 4 % (0-3); HYPOCHROMASIA 1+; LYMPHOCYTES % (MANUAL) 14 % (20-45); NEUTROPHILS % (MANUAL) 78 % (45-75); PLATELET ESTIMATE DECREASED; PLATELET MORPHOLOGY NORMAL; TOTAL CELLS COUNTED 100
[2016-09-05] MEDS: Rifaximin 550mg tab ORAL SCH (09:39)
[2016-09-05] MEDS: Metoprolol 50mg tab GT SCH (09:40)
[2016-09-05] MEDS: Lactulose 20gm/30ml UDC ORAL SCH (09:41)
[2016-09-05] MEDS: Vitamin A&D Oint 2oz Tube TOPIC SCH (09:48)
--- NOTE | 2016-09-05 10:39 | General Progress Note ---
Assessment/Plan Status: stable - from renal stand Status Narrative Cr 5.6 to 1.1 Assessment/Plan Status: acute renal failure - improving acute hepatic encephalopathy tracheostomy status & acute on chronic respiratory failure sepsis with bacteremia / UTI esophageal CA cirrhosis & portal hypertension & ascites & thrombocytopenia , severe hypoalbuminemia R foot wound dysphagia, G tube Plan: continue as is- Antibiotics- Avoid Nephrotoxics- Watch for Sxs of volume overload Monitor renal parameters Mag supplement-as needed DC planning? Subjective ROS Limited/Unobtainable: No Constitutional: Reports: malaise Allergies: Coded Allergies: No Known Allergies (Unverified , 08/30/16) Objective Last 24 Hour Vital Signs Date Time Temp Pulse Resp B/P Pulse Ox O2 Delivery O2 Flow Rate FiO2 09/05/16 09:40 56 151/68 09/05/16 08:00 97.0 56 18 151/68 100 Trach Collar 7.0 09/05/16 08:00 28 09/05/16 07:00 T-piece 6.0 09/05/16 07:00 99 T-piece 6.0 09/05/16 07:00 61 19 T-piece 6.0 09/05/16 05:36 65 149/72 09/05/16 04:00 96.4 63 18 160/85 93 Trach Collar 7.0 09/05/16 04:00 28 09/05/16 01:51 T-piece 6.0 09/05/16 01:51 98 T-piece 6.0 09/05/16 00:00 28 09/05/16 00:00 97.4 60 20 154/78 100 Trach Collar 7.0 09/04/16 21:39 60 148/76 09/04/16 21:38 60 148/76 09/04/16 20:00 98.1 60 18 148/76 99 Trach Collar 10.0 30 09/04/16 20:00 28 09/04/16 19:13 100 T-piece 6.0 09/04/16 19:13 T-piece 6.0 09/04/16 19:12 61 19 T-piece 6.0 09/04/16 16:00 28 09/04/16 16:00 98.1 61 19 154/79 100 Trach Collar 10.0 30 09/04/16 13:47 60 09/04/16 12:00 59 09/04/16 12:00 28 09/04/16 12:00 97.3 60 18 141/74 98 Trach Collar 28 Intake and Output 09/04/16 09/05/16 19:00 07:00 Intake Total 390 ml 360 ml Output Total 800 ml 950 ml Balance -410 ml -590 ml Intake Free Water 150 ml 150 ml Tube Feeding 240 ml 210 ml Output Urine Total 800 ml 950 ml # Voids 1 # Bowel Movements 4 4 Laboratory Tests 09/05/16 05:15: White Blood Count 8.5, Red Blood Count 2.95L, Hemoglobin 9.3L, Hematocrit 29.0L , Mean Corpuscular Volume 98, Mean Corpuscular Hemoglobin 31.6H, Mean Corpuscular Hemoglobin Concent 32.1, Red Cell Distribution Width 16.9H, Platelet Count 66L, Mean Platelet Volume 6.8, Neutrophils (%) (Auto) , Lymphocytes (%) (Auto) , Monocytes (%) (Auto) , Eosinophils (%) (Auto) , Basophils (%) (Auto) , Differential Total Cells Counted 100, Neutrophils % ( Manual) 78H, Lymphocytes % (Manual) 14L, Monocytes % (Manual) 4, Eosinophils % ( Manual) 4H, Basophils % (Manual) 0, Band Neutrophils 0, Platelet Estimate DecreasedL, Platelet Morphology Normal, Hypochromasia 1+, Anisocytosis 1+, Sodium Level 148H, Potassium Level 3.9, Chloride Level 116H, Carbon Dioxide Level 25, Anion Gap 7, Blood Urea Nitrogen 30H, Creatinine 1.1, Estimat Glomerular Filtration Rate , Glucose Level 73L, Calcium Level 7.4L, Phosphorus Level 3.2, Magnesium Level 1.6L, Total Bilirubin 1.3H, Direct Bilirubin 0.4H, Aspartate Amino Transf (AST/SGOT) 163H, Alanine Aminotransferase (ALT/SGPT) 72H , Alkaline Phosphatase 317H, Total Protein 7.6, Albumin 1.3L, Globulin 6.3, Albumin/Globulin Ratio 0.2L Height (Feet): 6 Height (Inches): 0.00 Weight (Pounds): 200 General Appearance: no apparent distress Cardiovascular: bradycardia Respiratory/Chest: decreased breath sounds Abdomen: soft HUMZA RICK Sep 05, 2016 10:39
--- NOTE | 2016-09-05 10:57 | GI Progress Note ---
Assessment/Plan Problems: (1) Anemia ICD Codes: D64.9 - Anemia, unspecified SNOMED: 173868511 (2) Esophageal varices ICD Codes: I85.00 - Esophageal varices without bleeding SNOMED: 79078465 (3) Cirrhosis ICD Codes: K74.60 - Unspecified cirrhosis of liver SNOMED: 58699554 (4) Portal hypertension ICD Codes: K76.6 - Portal hypertension SNOMED: 34444771 (5) Severe sepsis ICD Codes: A41.9 - Sepsis, unspecified organism; R65.20 - Severe sepsis without septic shock SNOMED: 19042732 Status: stable Status Narrative Discussed with Dr. Grace. Assessment/Plan elevated ammonia >> Xifaxan + lactulose abd U/S reviewed >> Liver disease/cirrhosis with stigmata of portal hypertension including splenomegaly, ascites, portosystemic varices, hepatofugal portal vein flow. hep C positive >> outpt tx portal HTN >> propranolol TID GTFs ppi + H2 fu labs Subjective Subjective limited Objective Last 24 Hour Vital Signs Date Time Temp Pulse Resp B/P Pulse Ox O2 Delivery O2 Flow Rate FiO2 09/05/16 09:40 56 151/68 09/05/16 08:00 97.0 56 18 151/68 100 Trach Collar 7.0 09/05/16 08:00 28 09/05/16 07:00 T-piece 6.0 09/05/16 07:00 99 T-piece 6.0 09/05/16 07:00 61 19 T-piece 6.0 09/05/16 05:36 65 149/72 09/05/16 04:00 96.4 63 18 160/85 93 Trach Collar 7.0 09/05/16 04:00 28 09/05/16 01:51 T-piece 6.0 09/05/16 01:51 98 T-piece 6.0 09/05/16 00:00 28 09/05/16 00:00 97.4 60 20 154/78 100 Trach Collar 7.0 09/04/16 21:39 60 148/76 09/04/16 21:38 60 148/76 09/04/16 20:00 98.1 60 18 148/76 99 Trach Collar 10.0 30 09/04/16 20:00 28 09/04/16 19:13 100 T-piece 6.0 28 09/04/16 19:13 T-piece 6.0 28 09/04/16 19:12 61 19 T-piece 6.0 28 09/04/16 16:00 28 09/04/16 16:00 98.1 61 19 154/79 100 Trach Collar 10.0 30 09/04/16 13:47 60 09/04/16 12:00 59 09/04/16 12:00 28 09/04/16 12:00 97.3 60 18 141/74 98 Trach Collar 28 Intake and Output 09/04/16 09/05/16 19:00 07:00 Intake Total 390 ml 360 ml Output Total 800 ml 950 ml Balance -410 ml -590 ml Intake Free Water 150 ml 150 ml Tube Feeding 240 ml 210 ml Output Urine Total 800 ml 950 ml # Voids 1 # Bowel Movements 4 4 Laboratory Tests Test 09/05/16 05:15 White Blood Count 8.5 K/UL (4.8-10.8) Red Blood Count 2.95 M/UL (4.70-6.10) L Hemoglobin 9.3 G/DL (14.2-18.0) L Hematocrit 29.0 % (42.0-52.0) L Mean Corpuscular Volume 98 FL (80-99) Mean Corpuscular Hemoglobin 31.6 PG (27.0-31.0) H Mean Corpuscular Hemoglobin Concent 32.1 G/DL (32.0-36.0) Red Cell Distribution Width 16.9 % (11.6-14.8) H Platelet Count 66 K/UL (150-450) L Mean Platelet Volume 6.8 FL (6.5-10.1) Neutrophils (%) (Auto) % (45.0-75.0) Lymphocytes (%) (Auto) % (20.0-45.0) Monocytes (%) (Auto) % (1.0-10.0) Eosinophils (%) (Auto) % (0.0-3.0) Basophils (%) (Auto) % (0.0-2.0) Differential Total Cells Counted 100 Neutrophils % (Manual) 78 % (45-75) H Lymphocytes % (Manual) 14 % (20-45) L Monocytes % (Manual) 4 % (1-10) Eosinophils % (Manual) 4 % (0-3) H Basophils % (Manual) 0 % (0-2) Band Neutrophils 0 % (0-8) Platelet Estimate Decreased L Platelet Morphology Normal Hypochromasia 1+ Anisocytosis 1+ Sodium Level 148 mEQ/L (135-145) H Potassium Level 3.9 mEQ/L (3.4-4.9) Chloride Level 116 mEQ/L (98-107) H Carbon Dioxide Level 25 mEQ/L (20-30) Anion Gap 7 (5-15) Blood Urea Nitrogen 30 mg/dL (7-23) H Creatinine 1.1 mg/dL (0.7-1.2) Estimat Glomerular Filtration Rate mL/min (>60) Glucose Level 73 mg/dL (74-106) L Calcium Level 7.4 mg/dL (8.6-10.2) L Phosphorus Level 3.2 mg/dL (2.5-4.8) Magnesium Level 1.6 mg/dL (1.7-2.5) L Total Bilirubin 1.3 mg/dL (0.0-1.2) H Direct Bilirubin 0.4 mg/dL (0.1-0.3) H Aspartate Amino Transf (AST/SGOT) 163 U/L (5-40) H Alanine Aminotransferase (ALT/SGPT) 72 U/L (3-41) H Alkaline Phosphatase 317 U/L (40-129) H Total Protein 7.6 g/dL (6.6-8.7) Albumin 1.3 g/dL (3.5-5.2) L Globulin 6.3 g/dL Albumin/Globulin Ratio 0.2 (1.0-2.7) L Height (Feet): 6 Height (Inches): 0.00 Weight (Pounds): 200 General Appearance: no apparent distress, alert Cardiovascular: normal rate Respiratory/Chest: other - trach collar Abdominal Exam: GT site - c/d/i Objective Procedure: US ABD Complete Indication:Abdominal pain and elevated liver function tests Impression: Liver disease/cirrhosis with stigmata of portal hypertension including splenomegaly, ascites, portosystemic varices, hepatofugal portal vein flow. Gallstone Suspected small nonobstructive stone left kidney Snow Pyle N.P. Sep 05, 2016 10:57
[2016-09-05 11:59] VITALS: BP 160/76
--- NOTE | 2016-09-05 12:02 | Diagnostic Imaging Report ---
Indication: Shortness of breath Technique: One view of the chest Comparison: 02/13/17 Findings: Tracheostomy, right subclavian central venous catheter remain. There is interim clearing of previously demonstrated basilar atelectatic changes and left costophrenic angle blunting, lungs and pleural spaces now largely cleared except for some residual minimal atelectasis at the left lung base. The heart remains enlarged Impression: No definite acute process currently, except for minimal left basilar atelectasis Other findings as noted
[2016-09-05] MEDS ORDERED: INVANZ1 GM IVPB (12:38)
[2016-09-05 13:04] VITALS: BP 160/76
[2016-09-05] MEDS ORDERED: TYLENOL650 MG RECTAL (13:16)
[2016-09-05] MEDS ORDERED: DUONEB 0.5-3(2.53 ML HHN (13:17)
[2016-09-05] MEDS ORDERED: LACTULOSE20 GM/301 GT (13:18)
[2016-09-05] MEDS ORDERED: METOCLOPRAM5 MG/1 M2 IV (13:19)
[2016-09-05] MEDS ORDERED: MORPHINE 22 MG/1 ML IV (13:20)
[2016-09-05] MEDS ORDERED: MIRALAX17 G2 GT (13:21)
[2016-09-05] MEDS ORDERED: ZOFRAN 4 MG4 MG/2 ML IV (13:21)
[2016-09-05] MEDS ORDERED: INDERAL10 MG GT (13:22)
[2016-09-05] MEDS ORDERED: ZANTAC150 MG GT (13:22)
[2016-09-05] MEDS ORDERED: XIFAXAN550 MG GT (13:23)
[2016-09-05] MEDS ORDERED: A & D OINT1 APPLI1 TOPIC (13:24)
[2016-09-05] MEDS ORDERED: Ertapenem 1 GM in NS 55 ML IVPB SCH (15:00)
[2016-09-05] MEDS ORDERED: D5W 275ml ONE (15:33)
[2016-09-05] MEDS ORDERED: Tubing IV Secondary IV ONE (15:33)
[2016-09-05] MEDS ORDERED: Lactulose 20gm/30ml UDC ORAL SCH (18:00)
--- NOTE | 2016-09-05 18:05 | Infectious Diseases Prog Note ---
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 CXR: Suspect increasing left pleural effusion Severe sepsis SP - resolved lactic acidosis Afebrile without leukocytosis Acute encephalopathy, m/l septic, hepatic elevated NH4 HCV Ab(+) / elevated LFTs / cirrhosis - improved US: Liver disease/cirrhosis with stigmata of portal hypertension, Gallstone ARF - improved Chronic respiratory failure / trach collar Thrombocytopenia h/o esophageal CA [facility] resident NKDA Full Code PLAN: ok to DC on IV invanz d# 5 / 14 from ID standpoint ( 09/01 SP IV vancomycin, Cefepime d# 3 ) f/u cultures Monitor CBC, temperatures Monitor CMP Monitor CXR trach care, aspiration precautions d/w case hardener Subjective Allergies: Coded Allergies: No Known Allergies (Unverified , 08/30/16) Subjective remains afebrile for possible DC Objective Vital Signs Last 24 Hour Vital Signs Date Time Temp Pulse Resp B/P Pulse Ox O2 Delivery O2 Flow Rate FiO2 09/05/16 13:35 T-piece 6.0 28 09/05/16 13:35 98 T-piece 6.0 09/05/16 13:04 56 160/76 09/05/16 12:00 28 09/05/16 11:59 97.9 56 19 160/76 100 Trach Collar 09/05/16 09:40 56 151/68 09/05/16 08:00 97.0 56 18 151/68 100 Trach Collar 7.0 09/05/16 08:00 28 09/05/16 07:00 T-piece 6.0 28 09/05/16 07:00 99 T-piece 6.0 28 09/05/16 07:00 61 19 T-piece 6.0 09/05/16 05:36 65 149/72 09/05/16 04:00 96.4 63 18 160/85 93 Trach Collar 7.0 28 09/05/16 04:00 28 09/05/16 01:51 T-piece 6.0 28 09/05/16 01:51 98 T-piece 6.0 28 09/05/16 00:00 28 09/05/16 00:00 97.4 60 20 154/78 100 Trach Collar 7.0 28 09/04/16 21:39 60 148/76 09/04/16 21:38 60 148/76 09/04/16 20:00 98.1 60 18 148/76 99 Trach Collar 10.0 30 09/04/16 20:00 28 09/04/16 19:13 100 T-piece 6.0 28 09/04/16 19:13 T-piece 6.0 28 09/04/16 19:12 61 19 T-piece 6.0 28 Height (Feet): 6 Height (Inches): 0.00 Weight (Pounds): 200 General Appearance: no acute distress Respiratory/Chest: no respiratory distress Cardiovascular: normal rate, regular rhythm Abdomen: normal bowel sounds, soft, non tender, non distended Laboratory Tests Test 09/05/16 05:15 White Blood Count 8.5 K/UL (4.8-10.8) Red Blood Count 2.95 M/UL (4.70-6.10) L Hemoglobin 9.3 G/DL (14.2-18.0) L Hematocrit 29.0 % (42.0-52.0) L Mean Corpuscular Volume 98 FL (80-99) Mean Corpuscular Hemoglobin 31.6 PG (27.0-31.0) H Mean Corpuscular Hemoglobin Concent 32.1 G/DL (32.0-36.0) Red Cell Distribution Width 16.9 % (11.6-14.8) H Platelet Count 66 K/UL (150-450) L Mean Platelet Volume 6.8 FL (6.5-10.1) Neutrophils (%) (Auto) % (45.0-75.0) Lymphocytes (%) (Auto) % (20.0-45.0) Monocytes (%) (Auto) % (1.0-10.0) Eosinophils (%) (Auto) % (0.0-3.0) Basophils (%) (Auto) % (0.0-2.0) Differential Total Cells Counted 100 Neutrophils % (Manual) 78 % (45-75) H Lymphocytes % (Manual) 14 % (20-45) L Monocytes % (Manual) 4 % (1-10) Eosinophils % (Manual) 4 % (0-3) H Basophils % (Manual) 0 % (0-2) Band Neutrophils 0 % (0-8) Platelet Estimate Decreased L Platelet Morphology Normal Hypochromasia 1+ Anisocytosis 1+ Sodium Level 148 mEQ/L (135-145) H Potassium Level 3.9 mEQ/L (3.4-4.9) Chloride Level 116 mEQ/L (98-107) H Carbon Dioxide Level 25 mEQ/L (20-30) Anion Gap 7 (5-15) Blood Urea Nitrogen 30 mg/dL (7-23) H Creatinine 1.1 mg/dL (0.7-1.2) Estimat Glomerular Filtration Rate mL/min (>60) Glucose Level 73 mg/dL (74-106) L Calcium Level 7.4 mg/dL (8.6-10.2) L Phosphorus Level 3.2 mg/dL (2.5-4.8) Magnesium Level 1.6 mg/dL (1.7-2.5) L Total Bilirubin 1.3 mg/dL (0.0-1.2) H Direct Bilirubin 0.4 mg/dL (0.1-0.3) H Aspartate Amino Transf (AST/SGOT) 163 U/L (5-40) H Alanine Aminotransferase (ALT/SGPT) 72 U/L (3-41) H Alkaline Phosphatase 317 U/L (40-129) H Total Protein 7.6 g/dL (6.6-8.7) Albumin 1.3 g/dL (3.5-5.2) L Globulin 6.3 g/dL Albumin/Globulin Ratio 0.2 (1.0-2.7) L Current Medications Medications (Trade) Dose Ordered Sig/Darren Route PRN Reason Start Time Stop Time Status Last Admin Dose Admin Acetaminophen (Tylenol) 650 mg Q4H PRN RECTAL T>100.5 09/04/16 16:00 10/04/16 15:59 Albuterol/ Ipratropium (DuoNeb 0.5-3(2.5)mg/3ml) 3 ml Q4H PRN HHN Shortness of Breath 09/04/16 16:00 09/09/16 15:59 Dextrose (Dextrose 50%) STAT PRN IV Hypoglycemia 09/04/16 16:00 10/04/16 15:59 Ertapenem/Sodium Chloride (INVanz/Sodium Chloride) 55 ml @ 110 mls/hr Q24H IVPB 09/05/16 15:00 09/14/16 14:59 Lactulose (Cephulac) 30 gm BID ORAL 09/05/16 18:00 10/05/16 17:59 Metoclopramide HCl (Reglan) 10 mg Q6H PRN IVP N/V UNRELIEVED BY ZOFRAN 09/04/16 18:15 10/04/16 18:14 Metoprolol Tartrate (Lopressor) 50 mg EVERY 12 HOURS GT 09/04/16 21:00 10/04/16 20:59 09/05/16 09:40 Morphine Sulfate (Morphine Sulfate) 2 mg Q4H PRN IVP PAIN 4-10 09/04/16 17:00 09/11/16 16:59 Multivitamins (Multivitamin Hexavitamin) 5 ml DAILY GT 09/05/16 09:00 10/05/16 08:59 09/05/16 09:41 Ondansetron HCl (Zofran) 4 mg Q6H PRN IVP Nausea & Vomiting 09/04/16 17:00 10/04/16 16:59 Polyethylene Glycol (Miralax) 17 gm DAILYPRN PRN GT Constipation 09/04/16 18:15 10/04/16 18:14 Propranolol HCl (Inderal) 10 mg Q8HR ORAL 09/04/16 22:00 10/04/16 21:59 09/05/16 13:04 Ranitidine HCl (Zantac) 150 mg BID GT 09/05/16 18:00 10/05/16 17:59 Rifaximin (Xifaxan) 550 mg EVERY 12 HOURS ORAL 09/04/16 21:00 09/11/16 20:59 09/05/16 09:39 Vitamin A/Vitamin D (A & D Oint) 1 applic EVERY 12 HOURS TOPIC 09/04/16 21:00 10/04/16 20:59 09/05/16 09:48 TIAN PERERA Sep 05, 2016 18:05
--- NOTE | 2016-09-05 23:31 | Pulmonology Progress Note ---
Assessment/Plan Problems: (1) Bacteremia (2) Chronic respiratory disease (3) Acute kidney injury (4) Severe sepsis (5) Cirrhosis Assessment/Plan continue antibiotics check cultures tolerating feeding, jeviti 70 cc check electrolytes dvt prophlaxis renal function improving. continue antibiotics on [facility] med/surg dc planning in 1/2 days on IV antibiotics Subjective ROS Limited/Unobtainable: Yes Respiratory: Reports: dyspnea at rest, dyspnea on exertion, pleuritic pain, shortness of breath, wheezing Neurologic: Reports: confusion, weakness Allergies: Coded Allergies: No Known Allergies (Unverified , 08/30/16) Objective Last 24 Hour Vital Signs Date Time Temp Pulse Resp B/P Pulse Ox O2 Delivery O2 Flow Rate FiO2 09/05/16 13:35 T-piece 6.0 09/05/16 13:35 98 T-piece 6.0 09/05/16 13:04 56 160/76 09/05/16 12:00 28 09/05/16 11:59 97.9 56 19 160/76 100 Trach Collar 09/05/16 09:40 56 151/68 09/05/16 08:00 97.0 56 18 151/68 100 Trach Collar 7.0 09/05/16 08:00 28 09/05/16 07:00 T-piece 6.0 09/05/16 07:00 99 T-piece 6.0 09/05/16 07:00 61 19 T-piece 6.0 09/05/16 05:36 65 149/72 09/05/16 04:00 96.4 63 18 160/85 93 Trach Collar 7.0 09/05/16 04:00 09/05/16 01:51 T-piece 6.0 09/05/16 01:51 98 T-piece 6.0 09/05/16 00:00 28 09/05/16 00:00 97.4 60 20 154/78 100 Trach Collar 7.0 28 Intake and Output 09/04/16 09/05/16 19:00 07:00 Intake Total 390 ml 360 ml Output Total 800 ml 950 ml Balance -410 ml -590 ml Intake Free Water 150 ml 150 ml Tube Feeding 240 ml 210 ml Output Urine Total 800 ml 950 ml # Voids 1 # Bowel Movements 4 4 General Appearance: no acute distress HEENT: normocephalic, atraumatic, PERRL Respiratory/Chest: chest wall non-tender, decreased breath sounds, accessory muscle use, crackles/rales, rhonchi Cardiovascular: normal peripheral pulses, normal rate, regular rhythm, no JVD Abdomen: normal bowel sounds, no mass, distended, hepatomegaly Genitourinary: normal external genitalia Extremities: no cyanosis Skin: rash, lesions Neurologic/Psychiatric: navy seal II-XII grossly normal, responsive, disoriented Laboratory Tests 09/05/16 05:15: White Blood Count 8.5, Red Blood Count 2.95L, Hemoglobin 9.3L, Hematocrit 29.0L , Mean Corpuscular Volume 98, Mean Corpuscular Hemoglobin 31.6H, Mean Corpuscular Hemoglobin Concent 32.1, Red Cell Distribution Width 16.9H, Platelet Count 66L, Mean Platelet Volume 6.8, Neutrophils (%) (Auto) , Lymphocytes (%) (Auto) , Monocytes (%) (Auto) , Eosinophils (%) (Auto) , Basophils (%) (Auto) , Differential Total Cells Counted 100, Neutrophils % ( Manual) 78H, Lymphocytes % (Manual) 14L, Monocytes % (Manual) 4, Eosinophils % ( Manual) 4H, Basophils % (Manual) 0, Band Neutrophils 0, Platelet Estimate DecreasedL, Platelet Morphology Normal, Hypochromasia 1+, Anisocytosis 1+, Sodium Level 148H, Potassium Level 3.9, Chloride Level 116H, Carbon Dioxide Level 25, Anion Gap 7, Blood Urea Nitrogen 30H, Creatinine 1.1, Estimat Glomerular Filtration Rate , Glucose Level 73L, Calcium Level 7.4L, Phosphorus Level 3.2, Magnesium Level 1.6L, Total Bilirubin 1.3H, Direct Bilirubin 0.4H, Aspartate Amino Transf (AST/SGOT) 163H, Alanine Aminotransferase (ALT/SGPT) 72H , Alkaline Phosphatase 317H, Total Protein 7.6, Albumin 1.3L, Globulin 6.3, Albumin/Globulin Ratio 0.2L MARC RUTLEDGE Sep 05, 2016 23:30
--- NOTE | 2016-09-06 02:28 | Progress Note ---
DATE: 09/05/2016 SUBJECTIVE: The patient is awake, alert, afebrile, and hemodynamically stable. PHYSICAL EXAMINATION: VITAL SIGNS: Blood pressure 114/77, pulse is 92, respirations 18, and temperature 97.9 degrees. HEENT: Eyes were normal. ENT, mucous membranes were moist and intact. NECK: Supple with no JVD without lymph nodes. Tracheostomy site is clean. LUNGS: Clear without rhonchi, rales, or wheezing. Secretions are small, thin, and solis. HEART: Normal sounds with regular beats. There is no tachycardia at rest. ABDOMEN: Soft, flat, and nontender with normal bowel sounds. Gastrostomy site is clean. EXTREMITIES: Warm without cyanosis, clubbing, or edema. LABORATORY DATA: Not available at the time of this dictation. IMPRESSION: The patient is afebrile without leukocytosis and hemodynamically stable. He has a central line complete IV antibiotic in the extended care facility subacute unit. The case will be discussed with the transaction processor point of view. The patient can be discharged to the extended care facility. The patient is to be discharged today. Gabriella Romero M.D. DR: Ruben JOB#: [id number] CC:
--- NOTE | 2016-09-06 20:17 | Discharge Summary ---
Discharge Summary Hospital Course Date of Admission Aug 30, 2016 at 15:53 Date of Discharge Sep 05, 2016 at 15:00 Admitting Diagnosis acute kidney injury, severe sepsis, VENT PT HPI Rajiv De Souza is a 71 year old male who was admitted on Aug 30, 2016 at 15:53 for Acute Kidney Failure,Severe Sepsis Hospital Course [id number] Discharge Discharge Disposition Patient was discharged to SNF/Subacute Facility(03) Discharge Diagnoses: Afia Rodríguez NP Sep 06, 2016 20:17
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
--- NOTE | 2016-09-13 10:58 | Diagnostic Imaging Report ---
Indications: Altered mental status Technique: Spiral acquisitions obtained through the brain. Angled axial and coronal 5 x 5 mm slices were reconstructed. Total dose length product 1428 mGycm. CTDI vol(s) 7 mGy Comparison: None Findings: There is mild age-related enlargement of the ventricles and extra-axial CSF spaces. There is extensive periventricular deep white matter low-attenuation. No acute hemorrhage or edema. No mass effect or midline shift. No significant extracranial soft tissue abnormality. Intact calvarium. Visualized orbits and sinuses are unremarkable Impression: Chronic and age-related changes as described Negative for acute intracranial bleed or mass effect The CT scanner at [facility] is accredited by the [employer] and the scans are performed using protocols designed to limit radiation exposure to as low as reasonably achievable to attain images of sufficient resolution adequate for diagnostic evaluation.
--- NOTE | 2016-09-27 09:20 | Consultation ---
DATE OF CONSULTATION: 08/30/2016 INFECTIOUS DISEASE CONSULTATION CONSULTING PHYSICIAN: Matthew Marie M.D. ATTENDING PHYSICIAN: Deanna Valerio M.D. REQUESTED BY: Dominga PetersonSamaritan Medical CenterJet Roman REASON FOR CONSULTATION: Evaluation of the patient for sepsis and antibiotic management. HISTORY OF PRESENT ILLNESS: The patient is a 71-year-old male with multiple medical problems who was brought to the hospital due to altered level of consciousness. Apparently, the patient's mental status has worsened compared to the past. The patient now is responding only to pain. Infectious Disease consultation has been requested for evaluation of the patient regarding possible sepsis as a contributing factor. PAST MEDICAL HISTORY: 1. History of ventilator-dependent respiratory failure. 2. History of status post trach and PEG. 3. History of esophageal cancer. 4. History of dysphagia. 5. History of coronary artery disease. 6. History of pressure ulcers. 7. History of anemia. 8. History of thrombocytopenia. 9. History of anoxic brain damage. 10. History of hypertension. 11. History of COPD. FAMILY HISTORY: Noncontributory. REVIEW OF SYSTEMS: Unobtainable. MEDICATIONS: IV cefepime and vancomycin. ALLERGIES: He has no known drug allergies. SOCIAL HISTORY: The patient lives in a alf. PHYSICAL EXAMINATION: VITAL SIGNS: Temperature 97.2, blood pressure 156/70, pulse 69, and respiratory rate 22. HEENT: Mild pale conjunctivae, no icterus. NECK: No lymphadenopathy. CHEST: Coarse breathing sounds. HEART: S1 and S2. ABDOMEN: Soft. PEG tube in place. EXTREMITIES: No cyanosis. The patient has, however, desquamated and rough skin on the bilateral feet, right more than left. NEUROLOGIC: Nonverbal. LABORATORY AND INVESTIGATING: White blood cells 10, hemoglobin 11, and platelets 40,000. UA is unremarkable, however, too numerous to count white blood cells. BUN 88 and creatinine 5.9. ALT and AST unremarkable. Alkaline phosphatase of 156. Chest x ray, no acute process. ASSESSMENT: The patient is a 71-year-old male with multiple medical problems who was admitted to this medical center with altered level of consciousness. The chest x-ray has been unremarkable; however, cannot rule out completely the possibility of pneumonia. A CT scan of the head was unremarkable; however, we will follow the official report. At this time, the patient would benefit from broad-spectrum antibiotics. PLAN: 1. We will start the patient on vancomycin and cefepime. 2. Monitor CBC. 3. Monitor BMP. 4. Monitor cultures (blood, urine, and sputum). 5. We will monitor chest x-ray. 6. We will monitor the patient, and based on the patient's labs, we will do further recommendations. Thank you, Dr. Valerio, for allowing me to participate in the care of this patient. I will follow the patient with you during this hospitalization. Matthew Marie M.D. DR: ASHER JOB#: [id number] CC:
== END 2016-09-05 15:00 | DRG 720 ==
LOC: EDBD 14:02 → EMR 14:16 → EDBEDREQ 15:47 → 2W 15:53 → EDBEDREQ 16:36 → 4W 09-04 16:10
PROC: 5A1935Z Respiratory Ventilation, Less than 24 Consecutive Hours (ICD-10-PCS; principal; 2016-08-30)
PROC: 05H533Z Insertion of Infusion Device into Right Subclavian Vein, Percutaneous Approach (ICD-10-PCS; 2016-08-30)
DX: A41.9 Sepsis, unspecified organism (principal); K72.00 Acute and subacute hepatic failure without coma; J96.20 Acute and chronic respiratory failure, unspecified whether with hypoxia or hypercapnia; N17.9 Acute kidney failure, unspecified; G93.40 Encephalopathy, unspecified; L89.514 Pressure ulcer of right ankle, stage 4; Z99.11 Dependence on respirator [ventilator] status; I85.00 Esophageal varices without bleeding; Z43.0 Encounter for attention to tracheostomy; R18.8 Other ascites; N39.0 Urinary tract infection, site not specified; K74.60 Unspecified cirrhosis of liver; K76.6 Portal hypertension; D69.6 Thrombocytopenia, unspecified; E88.09 Other disorders of plasma-protein metabolism, not elsewhere classified; Z85.01 Personal history of malignant neoplasm of esophagus; Z43.1 Encounter for attention to gastrostomy; K72.90 Hepatic failure, unspecified without coma; B96.20 Unspecified Escherichia coli [E. coli] as the cause of diseases classified elsewhere; Z16.12 Extended spectrum beta lactamase (ESBL) resistance; R65.20 Severe sepsis without septic shock; B19.20 Unspecified viral hepatitis C without hepatic coma; D64.9 Anemia, unspecified
CPT/HCPCS: 36415; 36600; 70450; 71010; 76700; 80053; 80061; 80202; 81003; 82105; 82140; 82248; 82550; 82553; 82607; 82728; 82746; 82803; 82962; 82977; 83036; 83540; 83550; 83605; 83735; 83880; 84100; 84443; 84484; 84550; 85007; 85025; 85610; 85730; 86140; 86705; 86709; 86803; 87040; 87070; 87081; 87086; 87181; 87205; 87340; 93005; 93970; 94002; 94003; 94664; 94760